=== PATIENT | male | born 1970 | race African-American/Black ===

== ENCOUNTER 2020-06-16 07:11 | Inpatient (IN) | payer MEDICARE, MEDICAID, SELFPAY ==
[2020-06-16] VITALS (10 sets, daily range): BP systolic 139–154; BP diastolic 73–76; PULSE 92–96; RESP 16–20; TEMP 36.7–36.8; O2SAT 96–98; BMI 38.6
--- NOTE | ~2020-06-16 | US_ITS ---
EXAMINATION: US ABDOMEN LIMITED CLINICAL INFORMATION: Elevated LFTs.. COMPARISON: None TECHNIQUE: Real-time imaging of the right upper quadrant abdominal viscera. FINDINGS: PANCREAS: The pancreas is completely obstructed by overlying gas. LIVER: The liver is normal in size. The liver contour is normal. Parenchymal echogenicity is diffusely increased. There are areas of focal fatty sparing. No focal hepatic lesion. There is no intrahepatic biliary duct dilatation seen. GALLBLADDER: Normal. The gallbladder is physiologically distended without evidence of stones, sludge, polyps, wall thickening or pericholecystic fluid. COMMON BILE DUCT: Normal in caliber measuring 0.2 cm in diameter. RIGHT KIDNEY: Normal. No hydronephrosis. No renal calculi or focal parenchymal lesions. The kidney measures 10.8 cm in maximum dimension. FREE FLUID: None. US/US abdomen limited IMPRESSION: Diffuse hepatic steatosis with areas of focal fatty sparing. Rest of the limited abdominal ultrasound is unremarkable.
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
[2020-06-16 08:42] LABS: MANUAL DIFF FLAG NO
--- NOTE | 2020-06-16 08:47 | ED.PSYCH ---
HPI - Psych General Chief Complaint: Psychiatric Symptoms Stated Complaint: SI Time Seen by Provider: 06/16/20 08:34 Source: patient and EMS History of Present Illness HPI Narrative: 49-year-old past medical history of bipolar, hallucinations, BIBA complaining of suicidal and homicidal ideations with auditory and visual hallucinations. Reports he cannot tell what is real and what is not. Admits he is overdue for his Haldol injection. States he is having difficulty controlling his hallucinations. Denies EtOH/illicit drug use History limited due to patient's lethargic mental status MD complaint: suicidal ideation Related Data Home Medications Medication Instructions Recorded Confirmed amitriptyline 10 mg PO BID@0800,1600 06/16/20 06/16/20 amlodipine 10 mg PO DAILY 06/16/20 06/16/20 benztropine 1 mg PO BID 06/16/20 06/16/20 bupropion HCl 300 mg PO DAILY 06/16/20 06/16/20 buspirone 15 mg PO TID 06/16/20 06/16/20 clonidine HCl 0.2 mg PO BEDTIME 06/16/20 06/16/20 haloperidol decanoate 100 mg IM Q2W 06/16/20 06/16/20 hydrochlorothiazide 25 mg PO DAILY 06/16/20 06/16/20 hydroxyzine HCl 25 mg PO BID PRN 06/16/20 06/16/20 lisinopril 5 mg PO DAILY 06/16/20 06/16/20 omeprazole 20 mg PO DAILY@0630 06/16/20 06/16/20 propranolol 120 mg PO DAILY 06/16/20 06/16/20 Allergies Allergy/AdvReac Type Severity Reaction Status Date / Time No Known Allergies Allergy Verified 06/16/20 08:00 Review of Systems Review of Systems: Constitutional: No Fever, No Chills Cardiovascular: No Chest Pain, No SOB Respiratory: No Cough, No Dyspnea Gastrointestinal: No Nausea, No Vomiting, No Abdominal pain Musculoskeletal: No joint pain, No Myalgias Skin: No Skin Lesions, No rash Psych: No Anxiety/Panic, +Depression, +SI/HI/AH/VH Yes all other systems are reviewed and are negative PMFSH Past Medical History Attestation statement: The following information was validated with the patient. Medical History (Updated 06/16/20 @ 12:20 by KIM Lowery) Bipolar disorder Coma Hallucinations Social History Social History Use of substances other than those prescribed or required for medical reasons: Yes Advance Directives: Yes Advance Directives Information Provided: No Advance Directives on File: No Physical Exam Vital Signs: Vital Signs: Last Vital Signs Temp 98.0 F 06/16/20 07:42 Pulse 92 06/16/20 07:42 Resp 20 06/16/20 16:00 BP 154/73 H 06/16/20 07:42 Pulse Ox 98 06/16/20 07:42 Body Mass Index 38.6 Const: General: cooperative, healthy appearing, alert and lethargic Orientation/consciousness: lethargic Limitations: no limitations HENMT: Head: Yes normal to inspection Ears: hearing grossly normal bilaterally General nose exam: Normal external nose present Face and sinus: Yes normal facial exam Eyes: General: appearance normal, both eyes and all related structures EOM: EOMs intact bilaterally Neck: Neck: Yes normal visual inspection Resp: Effort & Inspection: normal respiratory effort and not labored Cardio: Rate: regular rate Heart sounds: S1 normal heart sound present and S2 normal heart sound present GI: Inspection: Yes normal to inspection Palpation (GI): Soft to palpation Skin: Rashes: no rashes Wounds: no wounds Extrem: General: Yes normal to inspection Psych: Attitude: cooperative Thought content: Suicidality present, Homicidality present, Hallucination(s) present and Depressive thoughts present Insight: Good insight present (Psych) Course Course Course Narrative: -creatinine mildly elevated at 1.53 > no baseline priors will push p.o. fluids -AST/ALT elevated will obtain limited RUQ abd ultrasound for further eval, tox screen positive for cocaine and THC -1218--US abdomen limited IMPRESSION: Diffuse hepatic steatosis with areas of focal fatty sparing. Rest of the limited abdominal ultrasound is unremarkable. > patient is medically cleared for [facility] evaluation. Physician observation initiated at 1218 --1700--ED care transferred to MACHINE ROOM OPERATOR Malik pending [facility] evaluation MDM - Psych MDM Narrative Medical decision making narrative: 49-year-old past medical history of bipolar, hallucinations, BIBA complaining of suicidal and homicidal ideations with auditory and visual hallucinations. On exam VSS, in NAD, lethargic however easily arousable, having active hallucinations on exam. Concern for bipolar exacerbation vs medication noncompliance vs organic causes Plan: Labs, [facility]N Medical Records Attestation: I reviewed the patient's medical records. Lab Data Attestation: I reviewed the patient's lab results. Result diagrams: 06/16/20 08:33 06/16/20 08:33 Labs: Lab Results 06/16/20 06/16/20 06/16/20 Range/Units 08:32 08:33 08:33 WBC 6.0 (4.8-10.8) X10*3/uL RBC 4.13 L (4.60-5.80) X10*6/uL Hgb 13.6 L (14.0-18.0) g/dl Hct 39.3 L (42-52) % MCV 95.2 (80-98) fL MCH 32.9 (27.0-33.0) pg MCHC 34.6 (31.0-36.0) g/dl RDW 12.7 (11.0-16.0) % Plt Count 190 (160-400) X10*3/uL MPV 10.0 (9.4-12.4) fL Immature Gran % (Auto) 0.3 (0.0-0.4) % Neut % (Auto) 75.5 H (45-73) % Lymph % (Auto) 15.4 L (20-40) % [place] % (Auto) 8.2 (2-11) % Eos % (Auto) 0.3 (0-4) % Baso % (Auto) 0.3 (0-2) % Lymph # (Auto) 0.9 L (1.2-4.9) X10*3/uL [place] # (Auto) 0.5 (0.1-1.2) X10*3/uL Eos # (Auto) 0.0 (0.0-0.4) X10*3/uL Baso # (Auto) 0.0 (0.0-0.2) X10*3/uL Abs Immat Gran (auto) 0.02 (0.00-0.03) X10*3/uL Absolute Neuts (auto) 4.5 (2.0-8.3) X10*3/uL Absolute Nucleated RBC 0.000 (0.0-0.012) X10*3/uL Nucleated RBC % (auto) 0.0 (0.0-0.2) /100WBC Sodium 134 L (135-145) mmol/L Potassium 4.0 (3.3-5.1) mmol/L Chloride 97 (96-108) mmol/L Carbon Dioxide 27 (22-29) mmol/L Anion Gap 14 (12-20) BUN 31 H (9-16) mg/dL Creatinine 1.53 H (0.5-1.4) mg/dL Estim Creat Clear Calc 82.0 Estimated GFR 49 Random Glucose 168 H (60-115) mg/dL Calcium 10.0 (8.4-10.2) mg/dL Total Bilirubin 0.8 (0.0-1.0) mg/dL AST 136 H (5-37) U/L ALT 52 H (0-40) U/L Alkaline Phosphatase 87 (39-117) U/L Total Protein 7.5 (6.5-8.0) g/dL Albumin 4.4 (3.5-5.0) g/dL Salicylates < 5.0 L (15-30) mg/dL Urine Opiates Screen Not Detected (Not Detect) Acetaminophen < 1 (<30) mcg/mL Ur Barbiturates Screen Not Detected (Not Detect) Ur Phencyclidine Scrn Not Detected (Not Detect) Ur Amphetamines Screen Not Detected (Not Detect) U Benzodiazepines Scrn Not Detected (Not Detect) Urine Cocaine Screen POSITIVE H (Not Detect) U Marijuana (THC) Screen POSITIVE H (Not Detect) Ethyl Alcohol mg/dL COVID-19 (FABIAN) (Negative) COVID-19 Clin Com 06/16/20 06/16/20 Range/Units 08:33 08:33 WBC (4.8-10.8) X10*3/uL RBC (4.60-5.80) X10*6/uL Hgb (14.0-18.0) g/dl Hct (42-52) % MCV (80-98) fL MCH (27.0-33.0) pg MCHC (31.0-36.0) g/dl RDW (11.0-16.0) % Plt Count (160-400) X10*3/uL MPV (9.4-12.4) fL Immature Gran % (Auto) (0.0-0.4) % Neut % (Auto) (45-73) % Lymph % (Auto) (20-40) % [place] % (Auto) (2-11) % Eos % (Auto) (0-4) % Baso % (Auto) (0-2) % Lymph # (Auto) (1.2-4.9) X10*3/uL [place] # (Auto) (0.1-1.2) X10*3/uL Eos # (Auto) (0.0-0.4) X10*3/uL Baso # (Auto) (0.0-0.2) X10*3/uL Abs Immat Gran (auto) (0.00-0.03) X10*3/uL Absolute Neuts (auto) (2.0-8.3) X10*3/uL Absolute Nucleated RBC (0.0-0.012) X10*3/uL Nucleated RBC % (auto) (0.0-0.2) /100WBC Sodium (135-145) mmol/L Potassium (3.3-5.1) mmol/L Chloride (96-108) mmol/L Carbon Dioxide (22-29) mmol/L Anion Gap (12-20) BUN (9-16) mg/dL Creatinine (0.5-1.4) mg/dL Estim Creat Clear Calc Estimated GFR Random Glucose (60-115) mg/dL Calcium (8.4-10.2) mg/dL Total Bilirubin (0.0-1.0) mg/dL AST (5-37) U/L ALT (0-40) U/L Alkaline Phosphatase (39-117) U/L Total Protein (6.5-8.0) g/dL Albumin (3.5-5.0) g/dL Salicylates (15-30) mg/dL Urine Opiates Screen (Not Detect) Acetaminophen (<30) mcg/mL Ur Barbiturates Screen (Not Detect) Ur Phencyclidine Scrn (Not Detect) Ur Amphetamines Screen (Not Detect) U Benzodiazepines Scrn (Not Detect) Urine Cocaine Screen (Not Detect) U Marijuana (THC) Screen (Not Detect) Ethyl Alcohol < 10 mg/dL COVID-19 (FABIAN) Negative (Negative) COVID-19 Clin Com See Note Discharge Plan Discharge Clinical Impression: Hallucinations, Depression with suicidal ideation Prescriptions: No Action clonidine HCl 0.2 mg Tablet 0.2 mg PO BEDTIME RF: 0 omeprazole 20 mg Capsule,Delayed Release(Dr/Ec) 20 mg PO DAILY@0630 RF: 0 buspirone 15 mg Tablet 15 mg PO TID RF: 0 lisinopril 5 mg Tablet 5 mg PO DAILY RF: 0 bupropion HCl 300 mg Tablet Extended Release 24 Hr 300 mg PO DAILY RF: 0 amlodipine 10 mg Tablet 10 mg PO DAILY RF: 0 benztropine 1 mg Tablet 1 mg PO BID RF: 0 hydrochlorothiazide 25 mg Tablet 25 mg PO DAILY RF: 0 propranolol 120 mg Capsule,Extended Release 24hr 120 mg PO DAILY RF: 0 haloperidol decanoate 100 mg/mL Solution 100 mg IM Q2W RF: 0 amitriptyline 10 mg Tablet 10 mg PO BID@0800,1600 RF: 0 hydroxyzine HCl 25 mg Tablet 25 mg PO BID PRN (Reason: Anxiety) RF: 0
[2020-06-16 08:55] LABS: Basophils Percent Auto 0.3 % (0-2); Eosinophils Percent Auto 0.3 % (0-4); Hematocrit 39.3 % (42-52); Hemoglobin 13.6 g/dl (14.0-18.0); Imm Gran Abs Auto 0.02 X10*3/uL (0.00-0.03); Imm Gran Pct Auto 0.3 % (0.0-0.4); Lymphocytes Absolute Auto 0.9 X10*3/uL (1.2-4.9); Lymphocytes Percent Auto 15.4 % (20-40); Mean Corpuscular HGB Conc 34.6 g/dl (31.0-36.0); Mean Corpuscular Hemoglobin 32.9 pg (27.0-33.0); Mean Corpuscular Volume 95.2 fL (80-98); Monocytes Absolute Auto 0.5 X10*3/uL (0.1-1.2); Monocytes Percent Auto 8.2 % (2-11); Neutrophils Absolute Auto 4.5 X10*3/uL (2.0-8.3); Neutrophils Percent Auto 75.5 % (45-73); Platelet Count 190 X10*3/uL (160-400); Red Blood Count 4.13 X10*6/uL (4.60-5.80); Red Cell Distribution Width 12.7 % (11.0-16.0)
[2020-06-16 09:02] LABS: COVID-19 Test Negative (Negative); IDNOW Serial# 9DD0AD1C
[2020-06-16 09:15] LABS: Ethanol < 10 mg/dL
[2020-06-16 09:20] LABS: Acetaminophen LAB < 1 mcg/mL (<30); Alanine Aminotransferase 52 U/L (0-40); Albumin Level 4.4 g/dL (3.5-5.0); Alkaline Phosphatase 87 U/L (39-117); Anion Gap 14 (12-20); Aspartate Amino Transferase 136 U/L (5-37); Bilirubin Total 0.8 mg/dL (0.0-1.0); Blood Urea Nitrogen 31 mg/dL (9-16); Carbon Dioxide 27 mmol/L (22-29); Chloride 97 mmol/L (96-108); Estimated Glomerular Filt Rate 49; Glucose Random 168 mg/dL (60-115); Salicylate < 5.0 mg/dL (15-30); Sodium 134 mmol/L (135-145); Total Protein 7.5 g/dL (6.5-8.0)
[2020-06-16 09:20] LABS: Amphetamine Screen Urine Not Detected (Not Detect); Barbiturates, Urine Not Detected (Not Detect); Benzodiazepines Screen Urine Not Detected (Not Detect); Cannabinoid Screen Urine POSITIVE (Not Detect); Cocaine Screen Urine POSITIVE (Not Detect); Opiate Screen Urine Not Detected (Not Detect); Phencyclidine Screen Urine Not Detected (Not Detect)
--- NOTE | 2020-06-16 10:29 | PC.NURSE ---
Pt resting- attempted to notify pt of ultrasound- pt awoke only slightly. Pharmacy consulted re: med rec.
--- NOTE | 2020-06-16 10:41 | PC.NURSE ---
Pt to ultrasound
--- NOTE | 2020-06-16 11:45 | PC.NURSE ---
Dr Barahona T in to evaluate from Psychiatry.
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
--- NOTE | 2020-06-16 12:41 | PC.NURSE ---
Information sent to [facility] via PC per current process. Pt encouraged to drink fluids, continues to be drowsy but arousable.
--- NOTE | 2020-06-16 13:12 | PC.NURSE ---
Pt resting, resp unlabored
--- NOTE | 2020-06-16 14:32 | PC.NURSE ---
Pt awake, eating lunch. IM medication given as ordered- pt willing, and requesting medication for control oh AH. Pt aware that he has PO as needed as well.
--- NOTE | 2020-06-16 18:18 | PC.NURSE ---
Pt awake briefly, OOB to bathroom. Currently resting, resp unlabored.
[2020-06-16] MEDS: busPIRone HCl 5 MG TABLET 15 MG PO (20:02)
[2020-06-16] MEDS: amLODIPine Besylate 10 MG TABLET PO (20:02)
[2020-06-16] MEDS: HaloperidoL 5 MG TABLET PO (20:02)
[2020-06-16] MEDS: Benztropine Mesylate 1 MG TABLET PO (20:03)
[2020-06-16] MEDS: cloNIDine HCL 0.2 MG TABLET PO (20:03)
--- NOTE | 2020-06-16 21:07 | PC.NURSE ---
Patient calm and quiet at this time, compliant with his HS PO medication, denied distress, will continue to monitor,
[2020-06-17 01:48] VITALS: BP 110/62; PULSE 88; RESP 18; TEMP 37.1; O2SAT 98
[2020-06-17] MEDS: Omeprazole 20 MG CAPSULE.DR PO (05:38)
[2020-06-17] MEDS: HaloperidoL 5 MG TABLET PO ×3 (05:38→18:14)
[2020-06-17 09:53] VITALS: BP 116/83; PULSE 96; RESP 18; TEMP 36.3; O2SAT 99
[2020-06-17] MEDS: Amitriptyline HCl 10 MG TABLET PO ×2 (09:59→15:52)
[2020-06-17] MEDS: hydroCHLOROthiazide 25 MG TABLET PO (09:59)
[2020-06-17] MEDS: busPIRone HCl 5 MG TABLET 15 MG PO ×3 (09:59→20:01)
[2020-06-17] MEDS: buPROPion HCl XL 300 MG TAB.ER.24H PO (10:00)
[2020-06-17] MEDS: amLODIPine Besylate 10 MG TABLET PO (10:00)
[2020-06-17] MEDS: Benztropine Mesylate 1 MG TABLET PO ×2 (10:00→20:01)
[2020-06-17] MEDS: lisinopriL 5 MG TABLET PO (10:00)
[2020-06-17] MEDS: Propranolol HCL LA 60 MG CAP.SA.24H 120 MG PO (10:16)
--- NOTE | 2020-06-17 10:21 | PC.NURSE ---
PATIENT AWAKE, CALM AND COOPERATIVE WITH STAFF. MORNING MEDS PROVIDED. PATIENT WAITING RE EVAL FROM [facility] TODAY.
--- NOTE | 2020-06-17 11:10 | PC.NURSE ---
bhn at bedside speaking with patient.
--- NOTE | 2020-06-17 11:46 | PC.NURSE ---
patient dispo plan for inpatient psych bed search.
[2020-06-17] MEDS: Cyclobenzaprine HCl 5 MG TABLET PO (13:23)
[2020-06-17] MEDS: Lidocaine 4 % Patch ADH..PATCH 1 PATCH TRANSDERMA (13:23)
[2020-06-17] MEDS: buPROPion HCl XL 150 MG TAB.ER.24H PO (15:52)
--- NOTE | 2020-06-17 15:57 | PC.NURSE ---
lidocaine patch fell off and pt threw in trash. new patch removed from Pyxis and applied to patient.
[2020-06-17 17:39] VITALS: BP 119/64; PULSE 82; RESP 16; TEMP 36.6; O2SAT 98
[2020-06-17 20:01] VITALS: BP 133/99; PULSE 80
[2020-06-17] MEDS: cloNIDine HCL 0.2 MG TABLET PO (20:01)
[2020-06-18] MEDS: HaloperidoL 5 MG TABLET PO (01:46)
[2020-06-18] MEDS: hydrOXYzine HCL 25 MG TABLET PO ×2 (01:46→21:59)
--- NOTE | 2020-06-18 01:48 | PC.NURSE ---
Patient just woke up, reported anxiety and racing thought, prn Haldol 5 mg and hydroxyzine 25 mg administered, pending effect, will continue to monitor.
[2020-06-18] MEDS: Omeprazole 20 MG CAPSULE.DR PO (05:58)
--- NOTE | 2020-06-18 07:03 | PC.NURSE ---
report taken from german ayon pt up at nurses station, making inquiries about medications, appears calm and cooperative. pt educated about family medicine resident 1 hr before and after scheduled time. pt agreeable to medications at 0800. breakfast tray at bedside. wctm for dc needs.
[2020-06-18] MEDS: Propranolol HCL LA 60 MG CAP.SA.24H 120 MG PO (08:00)
[2020-06-18] MEDS: amLODIPine Besylate 10 MG TABLET PO (08:01)
[2020-06-18] MEDS: buPROPion HCl XL 300 MG TAB.ER.24H PO (08:01)
[2020-06-18] MEDS: Amitriptyline HCl 10 MG TABLET PO ×2 (08:01→15:20)
[2020-06-18] MEDS: Benztropine Mesylate 1 MG TABLET PO ×2 (08:01→22:00)
[2020-06-18] MEDS: lisinopriL 5 MG TABLET PO (08:01)
[2020-06-18] MEDS: busPIRone HCl 5 MG TABLET 15 MG PO ×3 (08:01→18:55)
[2020-06-18] MEDS: hydroCHLOROthiazide 25 MG TABLET PO (08:02)
[2020-06-18 09:46] VITALS: BP 105/57; PULSE 72; RESP 16; TEMP 36.8; O2SAT 100
[2020-06-18] MEDS: buPROPion HCl XL 150 MG TAB.ER.24H PO (13:37)
--- NOTE | 2020-06-18 14:10 | ECG_ITS ---
Test Reason : MEDCLEALANCE Blood Pressure : / mmHG Vent. Rate : 063 BPM Atrial Rate : 063 BPM P-R Int : 150 ms QRS Dur : 082 ms QT Int : 396 ms P-R-T Axes : 053 -17 007 degrees QTc Int : 405 ms Normal sinus rhythm Normal ECG No previous ECGs available Referred By: Ayla Jackson Electronically Signed By:SHIRA VILLEGAS
[2020-06-18 16:14] VITALS: BP 118/68; PULSE 67; RESP 18; TEMP 36.2; O2SAT 99
[2020-06-18 22:00] VITALS: BP 127/73; PULSE 83
[2020-06-18] MEDS: cloNIDine HCL 0.2 MG TABLET PO (22:00)
[2020-06-18] MEDS: traZODone HCL 50 MG TABLET PO (22:00)
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
[2020-06-19] MEDS: HaloperidoL 5 MG TABLET PO ×3 (00:02→19:36)
[2020-06-19] MEDS: traZODone HCL 50 MG TABLET PO (00:02)
[2020-06-19] MEDS: hydrOXYzine HCL 25 MG TABLET PO (00:02)
[2020-06-19 06:40] VITALS: BP 121/65; PULSE 76; RESP 16; TEMP 36.1; O2SAT 97
[2020-06-19 08:30] LABS: Estimated Average Glucose 134 mg/dL; Hemoglobin A1C 151.7242 umol/L; Hemoglobin A1c % 6.3 %
[2020-06-19 08:36] LABS: Alanine Aminotransferase 45 U/L (0-40); Albumin Level 3.7 g/dL (3.5-5.0); Alkaline Phosphatase 90 U/L (39-117); Aspartate Amino Transferase 51 U/L (5-37); Bilirubin Direct < 0.2 mg/dL (0.0-0.5); Bilirubin Total 0.3 mg/dL (0.0-1.0); Cholesterol 133 mg/dL; HDL Cholesterol 36 mg/dL; LDL Cholesterol Calculated 81 mg/dl; Total Protein 6.5 g/dL (6.5-8.0); Triglycerides 81 mg/dL
[2020-06-19 08:38] VITALS: BP 116/78; PULSE 75
[2020-06-19] MEDS: Propranolol HCL LA 60 MG CAP.SA.24H 120 MG PO (08:38)
[2020-06-19] MEDS: buPROPion HCl XL 300 MG TAB.ER.24H PO (08:38)
[2020-06-19 08:40] VITALS: BP 116/78; PULSE 75
[2020-06-19] MEDS: lisinopriL 5 MG TABLET PO (08:40)
[2020-06-19] MEDS: amLODIPine Besylate 10 MG TABLET PO (08:40)
[2020-06-19] MEDS: hydroCHLOROthiazide 25 MG TABLET PO (08:41)
[2020-06-19] MEDS: busPIRone HCl 5 MG TABLET 15 MG PO ×3 (08:41→16:36)
[2020-06-19] MEDS: Benztropine Mesylate 1 MG TABLET PO ×2 (08:41→20:48)
[2020-06-19] MEDS: Omeprazole 20 MG CAPSULE.DR PO (08:41)
[2020-06-19] MEDS: Amitriptyline HCl 10 MG TABLET PO ×2 (08:43→16:36)
[2020-06-19 08:57] LABS: Free T4 (Free Thyroxine) 0.94 ng/dL (0.71-1.85); Thyroid Stimulating Hormone 0.44 uIU/mL (0.32-4.0)
--- NOTE | 2020-06-19 09:33 | P.DS_ITS ---
DS: Providers Provider Date of Service: 06/19/20 Date of admission: 06/18/20 16:26 Primary care physician: Unknown Physician DS: Diagnosis Discharge Diagnosis (1) Psychosis: Status: Acute DS: Medications Discharge Medications Home Medications: Home Medications Medication Instructions Recorded Confirmed amitriptyline 10 mg PO BID@0800,1600 06/16/20 06/16/20 amlodipine 10 mg PO DAILY 06/16/20 06/16/20 benztropine 1 mg PO BID 06/16/20 06/16/20 bupropion HCl 300 mg PO DAILY 06/16/20 06/16/20 buspirone 15 mg PO TID 06/16/20 06/16/20 clonidine HCl 0.2 mg PO BEDTIME 06/16/20 06/16/20 haloperidol decanoate 100 mg IM Q2W 06/16/20 06/16/20 hydrochlorothiazide 25 mg PO DAILY 06/16/20 06/16/20 hydroxyzine HCl 25 mg PO BID PRN 06/16/20 06/16/20 lisinopril 5 mg PO DAILY 06/16/20 06/16/20 omeprazole 20 mg PO DAILY@0630 06/16/20 06/16/20 propranolol 120 mg PO DAILY 06/16/20 06/16/20 bupropion HCl 1 tab PO DAILY 06/17/20 06/17/20 Discharge Plan Discharge Referrals: Physician,Unknown [Primary Care Provider] - 1 Week Discharge Medications: No Action clonidine HCl 0.2 mg Tablet 0.2 mg PO BEDTIME RF: 0 omeprazole 20 mg Capsule,Delayed Release(Dr/Ec) 20 mg PO DAILY@0630 RF: 0 buspirone 15 mg Tablet 15 mg PO TID RF: 0 lisinopril 5 mg Tablet 5 mg PO DAILY RF: 0 bupropion HCl 300 mg Tablet Extended Release 24 Hr 300 mg PO DAILY RF: 0 amlodipine 10 mg Tablet 10 mg PO DAILY RF: 0 benztropine 1 mg Tablet 1 mg PO BID RF: 0 hydrochlorothiazide 25 mg Tablet 25 mg PO DAILY RF: 0 propranolol 120 mg Capsule,Extended Release 24hr 120 mg PO DAILY RF: 0 haloperidol decanoate 100 mg/mL Solution 100 mg IM Q2W RF: 0 amitriptyline 10 mg Tablet 10 mg PO BID@0800,1600 RF: 0 hydroxyzine HCl 25 mg Tablet 25 mg PO BID PRN (Reason: Anxiety) RF: 0 bupropion HCl 150 mg tablet sustained-release 12 hr 1 tab PO DAILY RF: 0 Data Data Completed and Pending Completed studies during hospitalization [Text1]: 06/16/20 06/16/20 06/16/20 08:32 08:33 08:33 WBC 6.0 RBC 4.13 L Hgb 13.6 L Hct 39.3 L MCV 95.2 MCH 32.9 MCHC 34.6 RDW 12.7 Plt Count 190 MPV 10.0 Immature Gran % (Auto) 0.3 Neut % (Auto) 75.5 H Lymph % (Auto) 15.4 L [place] % (Auto) 8.2 Eos % (Auto) 0.3 Baso % (Auto) 0.3 Lymph # (Auto) 0.9 L [place] # (Auto) 0.5 Eos # (Auto) 0.0 Baso # (Auto) 0.0 Abs Immat Gran (auto) 0.02 Absolute Neuts (auto) 4.5 Absolute Nucleated RBC 0.000 Nucleated RBC % (auto) 0.0 Sodium 134 L Potassium 4.0 Chloride 97 Carbon Dioxide 27 Anion Gap 14 BUN 31 H Creatinine 1.53 H Estim Creat Clear Calc 82.0 Estimated GFR 49 Random Glucose 168 H Estimat Average Glucose Hemoglobin A1c % Calcium 10.0 Total Bilirubin 0.8 Direct Bilirubin AST 136 H ALT 52 H Alkaline Phosphatase 87 Total Protein 7.5 Albumin 4.4 Triglycerides Cholesterol LDL Cholesterol, Calc HDL Cholesterol TSH Free T4 Salicylates < 5.0 L Urine Opiates Screen Not Detected Acetaminophen < 1 Ur Barbiturates Screen Not Detected Ur Phencyclidine Scrn Not Detected Ur Amphetamines Screen Not Detected U Benzodiazepines Scrn Not Detected Urine Cocaine Screen POSITIVE H U Marijuana (THC) Screen POSITIVE H Ethyl Alcohol COVID-19 ([facility]) COVID-19 Clin Com 06/16/20 06/16/20 06/19/20 08:33 08:33 08:00 WBC RBC Hgb Hct MCV MCH MCHC RDW Plt Count MPV Immature Gran % (Auto) Neut % (Auto) Lymph % (Auto) [place] % (Auto) Eos % (Auto) Baso % (Auto) Lymph # (Auto) [place] # (Auto) Eos # (Auto) Baso # (Auto) Abs Immat Gran (auto) Absolute Neuts (auto) Absolute Nucleated RBC Nucleated RBC % (auto) Sodium Potassium Chloride Carbon Dioxide Anion Gap BUN Creatinine Estim Creat Clear Calc Estimated GFR Random Glucose Estimat Average Glucose Hemoglobin A1c % Calcium Total Bilirubin 0.3 Direct Bilirubin < 0.2 AST 51 H ALT 45 H Alkaline Phosphatase 90 Total Protein 6.5 Albumin 3.7 Triglycerides 81 Cholesterol 133 LDL Cholesterol, Calc 81 HDL Cholesterol 36 TSH 0.44 Free T4 0.94 Salicylates Urine Opiates Screen Acetaminophen Ur Barbiturates Screen Ur Phencyclidine Scrn Ur Amphetamines Screen U Benzodiazepines Scrn Urine Cocaine Screen U Marijuana (THC) Screen Ethyl Alcohol < 10 COVID-19 ([facility]) Negative COVID-19 Clin Com See Note 06/19/20 08:00 WBC RBC Hgb Hct MCV MCH MCHC RDW Plt Count MPV Immature Gran % (Auto) Neut % (Auto) Lymph % (Auto) [place] % (Auto) Eos % (Auto) Baso % (Auto) Lymph # (Auto) [place] # (Auto) Eos # (Auto) Baso # (Auto) Abs Immat Gran (auto) Absolute Neuts (auto) Absolute Nucleated RBC Nucleated RBC % (auto) Sodium Potassium Chloride Carbon Dioxide Anion Gap BUN Creatinine Estim Creat Clear Calc Estimated GFR Random Glucose Estimat Average Glucose 134 Hemoglobin A1c % 6.3 Calcium Total Bilirubin Direct Bilirubin AST ALT Alkaline Phosphatase Total Protein Albumin Triglycerides Cholesterol LDL Cholesterol, Calc HDL Cholesterol TSH Free T4 Salicylates Urine Opiates Screen Acetaminophen Ur Barbiturates Screen Ur Phencyclidine Scrn Ur Amphetamines Screen U Benzodiazepines Scrn Urine Cocaine Screen U Marijuana (THC) Screen Ethyl Alcohol COVID-19 ([facility]) COVID-19 Clin Com Imaging Diagnostic Imaging Impressions Abdomen Ultrasound 06/16/20 10:20 IMPRESSION: Diffuse hepatic steatosis with areas of focal fatty sparing. Rest of the limited abdominal ultrasound is unremarkable. DS: Summary Time Spent with Patient Time attestation: Total time spent providing and/or coordinating discharge services:
[2020-06-19 10:41] LABS: Anion Gap 12 (12-20); Blood Urea Nitrogen 22 mg/dL (9-16); Carbon Dioxide 29 mmol/L (22-29); Chloride 104 mmol/L (96-108); Creatinine Clr Calc Pharmacy 102.9; Estimated Glomerular Filt Rate > 60; Potassium 4.7 mmol/L (3.3-5.1); Sodium 140 mmol/L (135-145)
[2020-06-19] MEDS: buPROPion HCl XL 150 MG TAB.ER.24H PO ×2 (12:13→13:22)
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
[2020-06-19] MEDS: LORazepam 1 MG TABLET 2 MG PO ×2 (15:20→19:36)
[2020-06-19] MEDS: diphenhydrAMINE HCL 25 MG TABLET 50 MG PO ×2 (15:37→19:36)
[2020-06-19 20:46] VITALS: TEMP 36.2
[2020-06-19 20:48] VITALS: BP 144/63; PULSE 92
[2020-06-19] MEDS: cloNIDine HCL 0.2 MG TABLET PO (20:48)
[2020-06-19] MEDS: Melatonin 3 MG TABLET PO (20:48)
[2020-06-20 06:00] VITALS: RESP 16; TEMP 36.3; O2SAT 97
[2020-06-20] MEDS: buPROPion HCl XL 300 MG TAB.ER.24H PO ×2 (08:14→12:39)
[2020-06-20] MEDS: Omeprazole 20 MG CAPSULE.DR PO (08:14)
[2020-06-20] MEDS: hydroCHLOROthiazide 25 MG TABLET PO (08:14)
[2020-06-20] MEDS: Benztropine Mesylate 1 MG TABLET PO ×2 (08:14→19:12)
[2020-06-20] MEDS: busPIRone HCl 5 MG TABLET 15 MG PO ×3 (08:14→19:11)
[2020-06-20 08:15] VITALS: BP 125/79; PULSE 85
[2020-06-20] MEDS: Propranolol HCL LA 60 MG CAP.SA.24H 120 MG PO (08:15)
[2020-06-20] MEDS: Amitriptyline HCl 10 MG TABLET PO ×2 (08:15→16:49)
[2020-06-20] MEDS: lisinopriL 5 MG TABLET PO (08:15)
[2020-06-20] MEDS: amLODIPine Besylate 10 MG TABLET PO (08:15)
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
[2020-06-20] MEDS: Magnesium Hydrox/Alum Hydrox 30 ML ORAL.SUSP PO (09:13)
[2020-06-20] MEDS: LORazepam 1 MG TABLET 2 MG PO ×2 (10:41→16:49)
[2020-06-20] MEDS: HaloperidoL 5 MG TABLET PO ×3 (11:31→19:09)
[2020-06-20] MEDS: diphenhydrAMINE HCL 25 MG TABLET 50 MG PO ×2 (16:49→19:12)
[2020-06-20 16:51] VITALS: BP 118/81; PULSE 85; TEMP 36.3
[2020-06-20] MEDS: Melatonin 3 MG TABLET PO (19:09)
[2020-06-20 19:11] VITALS: BP 121/80; PULSE 99
[2020-06-20] MEDS: cloNIDine HCL 0.2 MG TABLET PO (19:11)
[2020-06-21 06:00] VITALS: BP 141/84; PULSE 88; TEMP 35.9; O2SAT 99
[2020-06-21] MEDS: buPROPion HCl XL 300 MG TAB.ER.24H PO (08:14)
[2020-06-21] MEDS: hydroCHLOROthiazide 25 MG TABLET PO (08:14)
[2020-06-21] MEDS: Amitriptyline HCl 10 MG TABLET PO ×2 (08:14→19:11)
[2020-06-21 08:15] VITALS: BP 141/84; PULSE 88
[2020-06-21] MEDS: lisinopriL 5 MG TABLET PO (08:15)
[2020-06-21] MEDS: busPIRone HCl 5 MG TABLET 15 MG PO ×3 (08:15→19:10)
[2020-06-21] MEDS: Omeprazole 20 MG CAPSULE.DR PO (08:15)
[2020-06-21] MEDS: HaloperidoL 5 MG TABLET PO ×4 (08:15→19:12)
[2020-06-21] MEDS: Benztropine Mesylate 1 MG TABLET PO ×2 (08:15→19:12)
[2020-06-21 08:16] VITALS: BP 141/84; PULSE 88
[2020-06-21] MEDS: Propranolol HCL LA 60 MG CAP.SA.24H 120 MG PO (08:16)
[2020-06-21 08:19] VITALS: BP 141/84; PULSE 88
[2020-06-21] MEDS: amLODIPine Besylate 10 MG TABLET PO (08:19)
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
[2020-06-21] MEDS: Magnesium Hydrox/Alum Hydrox 30 ML ORAL.SUSP PO (09:17)
[2020-06-21] MEDS: LORazepam 1 MG TABLET 2 MG PO ×2 (11:14→15:54)
[2020-06-21] MEDS: diphenhydrAMINE HCL 25 MG TABLET 50 MG PO ×3 (11:14→19:11)
[2020-06-21] MEDS: buPROPion HCl XL 150 MG TAB.ER.24H 300 MG PO (11:48)
[2020-06-21] MEDS: LORazepam 1 MG TABLET PO (13:40)
[2020-06-21 19:10] VITALS: BP 135/91; PULSE 95
[2020-06-21] MEDS: cloNIDine HCL 0.2 MG TABLET PO (19:10)
[2020-06-21] MEDS: Acetaminophen 325 MG TABLET 650 MG PO (19:12)
[2020-06-21] MEDS: Melatonin 3 MG TABLET PO (19:12)
[2020-06-21 20:25] VITALS: BP 131/81; PULSE 84; TEMP 36.3; O2SAT 96
[2020-06-22] MEDS: LORazepam 1 MG TABLET 2 MG PO ×3 (04:29→19:43)
[2020-06-22] MEDS: HaloperidoL 5 MG TABLET PO ×5 (04:30→19:43)
[2020-06-22] MEDS: diphenhydrAMINE HCL 50 MG/ML VIAL IM (04:30)
--- NOTE | 2020-06-22 04:35 | PC.NURSE ---
Addendum entered by Frandy Farris RN 06/22/20 04:47: Patient stated to nurse that with the Haldol and Ativan, he likes injections. Stated he has had several injections over his lifetime and stated that the Injections work well for him. Original Note: Patient reported that he was feeling agitated. Patient given Haldol 5 mg PO, Ativan 2 mg PO, and Benadryl IM to right deltoid 50 mg
[2020-06-22 06:00] VITALS: BP 150/95; PULSE 85; TEMP 36.3; O2SAT 99
[2020-06-22] MEDS: Bismuth Subsalicylate 262 MG TABLET PO ×2 (06:20→08:30)
[2020-06-22] MEDS: buPROPion HCl XL 300 MG TAB.ER.24H PO (08:27)
[2020-06-22] MEDS: Benztropine Mesylate 1 MG TABLET PO ×2 (08:28→18:54)
[2020-06-22] MEDS: Omeprazole 20 MG CAPSULE.DR PO (08:28)
[2020-06-22] MEDS: hydroCHLOROthiazide 25 MG TABLET PO (08:28)
[2020-06-22 08:29] VITALS: BP 150/95; PULSE 85
[2020-06-22] MEDS: Amitriptyline HCl 10 MG TABLET PO (08:29)
[2020-06-22] MEDS: amLODIPine Besylate 10 MG TABLET PO (08:29)
[2020-06-22] MEDS: lisinopriL 5 MG TABLET PO (08:29)
[2020-06-22] MEDS: Propranolol HCL LA 60 MG CAP.SA.24H 120 MG PO (08:29)
[2020-06-22] MEDS: busPIRone HCl 5 MG TABLET 15 MG PO ×3 (08:30→19:02)
[2020-06-22] MEDS: diphenhydrAMINE HCL 25 MG TABLET 50 MG PO ×3 (10:15→19:43)
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
[2020-06-22] MEDS: buPROPion HCl XL 150 MG TAB.ER.24H 300 MG PO (12:24)
[2020-06-22] MEDS: LORazepam 1 MG TABLET PO ×2 (14:33→18:55)
[2020-06-22 17:10] VITALS: BP 126/80; PULSE 86; RESP 18; TEMP 36.3; O2SAT 100
[2020-06-22 18:54] VITALS: BP 122/63; PULSE 91
[2020-06-22] MEDS: cloNIDine HCL 0.2 MG TABLET PO (18:54)
[2020-06-22] MEDS: Melatonin 3 MG TABLET PO (18:54)
--- NOTE | 2020-06-22 19:04 | PC.NURSE ---
given medications early per pt request
[2020-06-22 19:05] VITALS: BP 122/63; PULSE 91; TEMP 36.4; O2SAT 97
[2020-06-23] MEDS: diphenhydrAMINE HCL 25 MG TABLET 50 MG PO ×2 (00:42→10:15)
[2020-06-23] MEDS: LORazepam 1 MG TABLET 2 MG PO ×2 (00:42→10:15)
[2020-06-23] MEDS: HaloperidoL 5 MG TABLET PO ×3 (00:43→10:15)
[2020-06-23 06:00] VITALS: BP 132/90; PULSE 82; TEMP 36; O2SAT 94
[2020-06-23] MEDS: Bismuth Subsalicylate 262 MG TABLET PO (08:23)
[2020-06-23] MEDS: hydroCHLOROthiazide 25 MG TABLET PO (08:23)
[2020-06-23] MEDS: buPROPion HCl XL 300 MG TAB.ER.24H PO (08:23)
[2020-06-23] MEDS: Omeprazole 20 MG CAPSULE.DR PO (08:23)
[2020-06-23 08:24] VITALS: BP 132/90; PULSE 82
[2020-06-23] MEDS: lisinopriL 5 MG TABLET PO (08:24)
[2020-06-23] MEDS: Propranolol HCL LA 60 MG CAP.SA.24H 120 MG PO (08:24)
[2020-06-23 08:25] VITALS: BP 132/90; PULSE 82
[2020-06-23] MEDS: amLODIPine Besylate 10 MG TABLET PO (08:25)
[2020-06-23] MEDS: Benztropine Mesylate 1 MG TABLET PO (08:25)
[2020-06-23] MEDS: busPIRone HCl 5 MG TABLET 15 MG PO ×2 (08:25→11:50)
[2020-06-23] MEDS: LORazepam 1 MG TABLET PO (08:43)
[2020-06-23] MEDS: buPROPion HCl XL 150 MG TAB.ER.24H 300 MG PO (11:50)
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
== END 2020-06-23 13:35 | DRG 885 ==
LOC: HO.ED 06-18 16:31 → HO.PM5 06-18 16:32
PROVIDERS: Admitting Provider Psychiatry & Neurology Psychiatry; Emergency Provider Physician Assistant; Visit Provider Psychiatry & Neurology Psychiatry
DX: F25.9 Schizoaffective disorder, unspecified (principal); R45.851 Suicidal ideations; F43.12 Post-traumatic stress disorder, chronic; Z20.822 Contact with and (suspected) exposure to COVID-19; F17.210 Nicotine dependence, cigarettes, uncomplicated; R45.850 Homicidal ideations; Z71.6 Tobacco abuse counseling; Z79.899 Other long term (current) drug therapy
CPT/HCPCS: 36415; 76705; 80051; 80053; 80061; 80076; 80143; 80179; 80307; 80320; 82565; 83036; 84439; 84443; 84520; 85025; 87635; 93005; 99285; J1200; Q0163

== ENCOUNTER 2020-07-18 10:37 | Inpatient (IN) | payer MEDICARE, MEDICAID, SELFPAY ==
--- NOTE | 2020-07-18 | ECG_ITS ---
Test Reason : PRE ADMISSION Blood Pressure : / mmHG Vent. Rate : 086 BPM Atrial Rate : 086 BPM P-R Int : 136 ms QRS Dur : 070 ms QT Int : 370 ms P-R-T Axes : 069 012 030 degrees QTc Int : 442 ms Normal sinus rhythm Normal ECG When compared with ECG of 18-JUN-2020 16:03, No significant change was found Referred By: Leonor Rodriguez Electronically Signed By:Joel Jimenez
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
[2020-07-18 10:54] VITALS: BP 134/78; PULSE 90; RESP 20; TEMP 36; O2SAT 96; BMI 29.8
[2020-07-18 11:28] LABS: MANUAL DIFF FLAG NO
[2020-07-18 11:31] LABS: Basophils Percent Auto 0.5 % (0-2); Eosinophils Absolute Auto 0.2 X10*3/uL (0.0-0.4); Eosinophils Percent Auto 4.6 % (0-4); Hematocrit 43.2 % (42-52); Hemoglobin 14.6 g/dl (14.0-18.0); Lymphocytes Percent Auto 27.8 % (20-40); Mean Corpuscular HGB Conc 33.8 g/dl (31.0-36.0); Mean Corpuscular Volume 97.5 fL (80-98); Mean Platelet Volume 9.8 fL (9.4-12.4); Monocytes Absolute Auto 0.4 X10*3/uL (0.1-1.2); Monocytes Percent Auto 9.8 % (2-11); Neutrophils Absolute Auto 2.1 X10*3/uL (2.0-8.3); Neutrophils Percent Auto 57.3 % (45-73); Platelet Count 186 X10*3/uL (160-400); Red Blood Count 4.43 X10*6/uL (4.60-5.80); Red Cell Distribution Width 12.9 % (11.0-16.0); White Blood Count 3.7 X10*3/uL (4.8-10.8)
[2020-07-18 11:48] LABS: COVID-19 Test Negative (Negative); IDNOW Serial# 9DD0AD1C
[2020-07-18 11:57] LABS: Ethanol < 10 mg/dL
[2020-07-18 11:59] LABS: Alanine Aminotransferase 40 U/L (0-40); Alkaline Phosphatase 78 U/L (39-117); Anion Gap 12 (12-20); Aspartate Amino Transferase 79 U/L (5-37); Bilirubin Direct 0.4 mg/dL (0.0-0.5); Bilirubin Total 0.9 mg/dL (0.0-1.0); Blood Urea Nitrogen 14 mg/dL (9-16); Calcium 9.7 mg/dL (8.4-10.2); Carbon Dioxide 29 mmol/L (22-29); Chloride 102 mmol/L (96-108); Estimated Glomerular Filt Rate > 60; Glucose Random 112 mg/dL (60-115); Sodium 139 mmol/L (135-145); Total Protein 7.1 g/dL (6.5-8.0)
--- NOTE | 2020-07-18 15:00 | PC.NURSE ---
Completed and submitted [facility] Crisis Referral, N confirmed they have received the patient's information.
--- NOTE | 2020-07-18 16:11 | PHA.MEDREC ---
Pharmacy Consult ? Medication Reconciliation Pharmacy has completed the medication reconciliation. Patient reports he has not taken any Haldol PO or IM as changed per last discharge om 06/23. Sophia Root, FransiscaD
--- NOTE | 2020-07-18 16:29 | PC.NURSE ---
PT sleeping in room at this time. No sign of distress noted. Respirations even/unlabored bilaterally. Will continue to monitor.
[2020-07-18 18:30] VITALS: BP 146/91; PULSE 92; RESP 20; TEMP 36.6; O2SAT 97
[2020-07-18 20:07] VITALS: BP 146/83; PULSE 105
[2020-07-18] MEDS: cloNIDine HCL 0.2 MG TABLET PO (20:07)
[2020-07-18] MEDS: diphenhydrAMINE HCL 25 MG TABLET 50 MG PO (20:07)
[2020-07-18] MEDS: Benztropine Mesylate 1 MG TABLET PO (20:07)
[2020-07-18] MEDS: busPIRone HCl 5 MG TABLET 15 MG PO (20:07)
--- NOTE | 2020-07-18 21:07 | PC.ADMIT ---
Pt is a 49 year old male who presents to from [facility] at aprrox 17:35 on a cv status. Pt is covid - Pt refused Utox . Pt assessed by CARE team. Pt reported that he has been off his medication for approx two weeks. Pt reported SI with plan to shoot himself or cut. Pt verbalized that he hears voices all the time. Pt has a hx of trauma. Pt has a hx of substance abuse. Pt has been kown to before. DR Allan called for orders and notified of admission.
[2020-07-19 06:00] VITALS: BP 159/90; PULSE 97
[2020-07-19] MEDS: Benztropine Mesylate 1 MG TABLET PO ×2 (09:04→20:00)
[2020-07-19] MEDS: busPIRone HCl 5 MG TABLET 15 MG PO ×3 (09:04→20:01)
[2020-07-19] MEDS: hydroCHLOROthiazide 25 MG TABLET PO (09:05)
[2020-07-19] MEDS: Omeprazole 20 MG CAPSULE.DR PO (09:05)
[2020-07-19 09:09] VITALS: BP 159/90; PULSE 97
[2020-07-19] MEDS: Propranolol HCL LA 60 MG CAP.SA.24H 120 MG PO (09:09)
[2020-07-19 09:10] VITALS: BP 159/90; PULSE 97
[2020-07-19] MEDS: amLODIPine Besylate 10 MG TABLET PO (09:10)
[2020-07-19] MEDS: lisinopriL 5 MG TABLET PO (09:10)
[2020-07-19] MEDS: HaloperidoL 5 MG TABLET PO ×2 (11:46→20:00)
[2020-07-19] MEDS: buPROPion HCL 100 MG TABLET PO (11:51)
[2020-07-19] MEDS: LORazepam 1 MG TABLET PO ×2 (12:06→22:56)
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
[2020-07-19 18:00] VITALS: BP 138/98; PULSE 85; RESP 16; TEMP 36.2; O2SAT 99
[2020-07-19] MEDS: diphenhydrAMINE HCL 25 MG TABLET 50 MG PO (20:00)
[2020-07-19] MEDS: Melatonin 3 MG TABLET PO (20:00)
[2020-07-19] MEDS: buPROPion HCL 100 MG TABLET 200 MG PO (20:08)
[2020-07-19] MEDS: cloNIDine HCL 0.2 MG TABLET PO (20:09)
[2020-07-20] MEDS: LORazepam 1 MG TABLET 2 MG PO ×4 (04:04→16:56)
[2020-07-20] MEDS: Omeprazole 20 MG CAPSULE.DR PO (04:05)
[2020-07-20 06:00] VITALS: BP 138/75; PULSE 72; TEMP 36; O2SAT 99
[2020-07-20] MEDS: buPROPion HCL 100 MG TABLET 300 MG PO (08:59)
[2020-07-20] MEDS: HaloperidoL 5 MG TABLET PO ×4 (08:59→20:00)
[2020-07-20] MEDS: Benztropine Mesylate 1 MG TABLET PO ×2 (08:59→20:00)
[2020-07-20 09:00] VITALS: BP 138/75; PULSE 72
[2020-07-20] MEDS: Propranolol HCL LA 60 MG CAP.SA.24H 120 MG PO (09:00)
[2020-07-20] MEDS: amLODIPine Besylate 10 MG TABLET PO (09:00)
[2020-07-20 09:01] VITALS: BP 138/75; PULSE 72
[2020-07-20] MEDS: lisinopriL 5 MG TABLET PO (09:01)
[2020-07-20] MEDS: hydroCHLOROthiazide 25 MG TABLET PO (09:01)
[2020-07-20] MEDS: busPIRone HCl 5 MG TABLET 15 MG PO ×3 (09:01→20:01)
[2020-07-20] MEDS: buPROPion HCl XL 300 MG TAB.ER.24H PO (12:39)
[2020-07-20] MEDS: Bismuth Subsalicylate 262 MG TABLET PO (12:39)
--- NOTE | 2020-07-20 15:45 | P.PNPSI_ITS ---
Subjective Subjective Date of Service: 07/20/20 Reason For Visit: PTSD, Schizoaffective Disorder, TBI Hx Subjective Notes: Conditional Voluntary Healthcare Proxy: No Guardianship: No Medical Problems Affecting Mental Status: Yes (TBI) Interim History: Pt continues to be very focused on medicines, dosages and that he is being taken advantage of and unheard. Regime from previous admission re plicated to the best of our ability. We have to wait for confirmation from [facility] resp[facility] as to when Haldol injection was given-they have not been able to access this. We have clarified Wellbutrin and ordered it several times at pt's demand, he still is confrontive about this, reports vomiting it and wanting more, reports he wants a few days dosage at a time. Education attempted by the entire team which he is struggling with. Wanting to file legal and [facility] complaint, which is facilitated for pt. Pt tells TW in meeting today that our job is just to do as he demands. Discussed responsiblity for his well-being with him. Medication Compliance: Yes Side effects from medications: Yes (vomited today after lunch he reports-reports he is eating off others trays ) Attending Groups: No Review of Systems Review of Systems Yes all other systems are reviewed and are negative Reports behavioral changes and Reports confusion Psychiatric: Reports anxiety, Reports behavioral changes, Reports confusion, Reports auditory hallucinations, Reports hopelessness, Reports irritability, Reports anhedonia, Reports mood swings, Reports paranoia and Reports hallucinations Mental Status Exam Mental Status Exam Patient Appearance: Appropriate Patient Orientation: Person, Place and Time Level of Consciousness: Alert Patient Behavior: Guarded, Talkative, Suspicious, Aggressive, Restless, Belligerent, Wandering, Verbal Threats, Anxious, Fearful, Resistive to Care, Avoidant, Fatigued, Distractible, Good Eye Contact and Uncooperative Mood Description: Labile and Angry Affect Description: Labile Patient Cognition Impaired: Yes Ability to Follow Directions: Poor Speech Pattern: Perseverating, Spontaneous Speech, Cofabulation and Excessive Memory Description: Remote Impaired and Episodic Impaired Hallucinations: None Delusions: Paranoid Ideation and Present Thought Process: Illogical and Distracted Thought Content: positive for Circumstantial, positive for Perseveration, positive for Preoccupation and positive for Tangential Depressive Symptoms: Diff. Making Decisions, Increased Irritability, Loss of Int. in Activity, Unhappiness and Difficulty Concentrating Abnormal Motor Activity Signs and Symptoms: Aggression, Agitation and Restlessness Judgement: Poor Diagnostics Vital Signs (24Hr): Vital Signs - 24 hr 07/19/20 18:00 07/20/20 06:00 07/20/20 09:00 Temperature 97.2 F 96.8 F Pulse Rate 85 72 72 Respiratory Rate 16 Blood Pressure 138/98 H 138/75 138/75 Pulse Oximetry 99 99 07/20/20 09:01 Temperature Pulse Rate 72 Respiratory Rate Blood Pressure 138/75 Pulse Oximetry Body Mass Index 29.8 Labs Results: 07/18/20 11:22 07/18/20 11:23 Medications Medications Current Medications Generic Name Dose Route Start Last Admin Trade Name Freq PRN Reason Stop Dose Admin Acetaminophen 650 mg 07/18/20 18:48 Acetaminophen 325 Mg Tablet PO Q6H PRN Headache/Pain Mild Scale (1-3) Al Hydroxide/Mg Hydroxide 30 ml 07/18/20 19:05 Magnesium Hydrox/Alum Hydrox 30 Ml Oral.Susp PO Q6H PRN Heartburn/Nausea Amlodipine Besylate 10 mg 07/19/20 11:30 07/20/20 09:00 Amlodipine Besylate 10 Mg Tablet PO 10 mg DAILY VONDA Administration Protocol Benztropine Mesylate 1 mg 07/19/20 11:30 07/20/20 08:59 Benztropine Mesylate 1 Mg Tablet PO 1 mg BID VONDA Administration Bismuth Subsalicylate 262 mg 07/19/20 11:20 07/20/20 12:39 Bismuth Subsalicylate 262 Mg Tablet PO 262 mg DAILY PRN Administration Dyspepsia Bupropion HCl 600 mg 07/21/20 09:00 Bupropion Hcl Xl 150 Mg Tab.Er.24h PO DAILY VONDA Buspirone HCl 15 mg 07/19/20 15:00 07/20/20 14:26 Buspirone Hcl 5 Mg Tablet PO 15 mg TID VONDA Administration Clonidine HCl 0.2 mg 07/19/20 21:00 07/19/20 20:09 Clonidine Hcl 0.2 Mg Tablet PO 0.2 mg BEDTIME VONDA Administration Protocol Diphenhydramine HCl 50 mg 07/19/20 21:00 07/19/20 20:00 Diphenhydramine Hcl 25 Mg Tablet PO 50 mg BEDTIME VONDA Administration Diphenhydramine HCl 25 mg 07/19/20 11:36 Diphenhydramine Hcl 25 Mg Tablet PO Q4H PRN EPS Diphenhydramine HCl 50 mg 07/19/20 15:59 Diphenhydramine Hcl 50 Mg/Ml Vial IM Q4H PRN dystonia Haloperidol 5 mg 07/19/20 21:00 07/20/20 08:59 Haloperidol 5 Mg Tablet PO 5 mg BID VONDA Administration Haloperidol 5 mg 07/19/20 15:59 07/20/20 14:26 Haloperidol 5 Mg Tablet PO 5 mg Q4H PRN Administration agitation Haloperidol Decanoate 100 mg 07/19/20 16:02 Haloperidol Decanoate 50 Mg/Ml Ampul IM 07/19/20 16:03 ONCE ONE Hydrochlorothiazide 25 mg 07/19/20 11:30 07/20/20 09:01 Hydrochlorothiazide 25 Mg Tablet PO 25 mg DAILY VONDA Administration Protocol Hydroxyzine HCl 25 mg 07/18/20 18:48 Hydroxyzine Hcl 25 Mg Tablet PO BEDTIME PRN Anxiety Lisinopril 5 mg 07/19/20 12:00 07/20/20 09:01 Lisinopril 5 Mg Tablet PO 5 mg DAILY VONDA Administration Protocol Lorazepam 2 mg 07/19/20 16:04 07/20/20 14:26 Lorazepam 1 Mg Tablet PO 2 mg Q4H PRN Administration AGITATION Lorazepam 1 mg 07/19/20 16:04 07/19/20 22:56 Lorazepam 1 Mg Tablet PO 1 mg BID PRN Administration Anxiety Magnesium Hydroxide 30 ml 07/18/20 18:48 Milk Of Magnesia 30 Ml Oral.Susp PO DAILY PRN Constipation Melatonin 3 mg 07/19/20 21:00 07/19/20 20:00 Melatonin 3 Mg Tablet PO 3 mg BEDTIME VONDA Administration Nicotine Polacrilex 4 mg 07/19/20 16:03 Nicotine Polacrilex 4 Mg Lozenge BUCCAL Q2H PRN Nicotine Cravings Omeprazole 20 mg 07/19/20 11:30 07/20/20 04:05 Omeprazole 20 Mg Capsule.Dr PO 20 mg DAILY@0630 VONDA Administration Propranolol HCl 120 mg 07/19/20 09:00 07/20/20 09:00 Propranolol Hcl La 60 Mg Cap.Sa.24h PO 120 mg DAILY VONDA Administration Protocol Trazodone HCl 50 mg 07/18/20 18:48 Trazodone Hcl 50 Mg Tablet PO BEDTIME PRN Insomnia Allergies Allergies Allergy/AdvReac Type Severity Reaction Status Date / Time No Known Allergies Allergy Verified 06/16/20 08:00 Assessment & Plan Assessment & Plan (1) Chronic post-traumatic stress disorder (PTSD): Status: Chronic Code(s): F43.12 - Post-traumatic stress disorder, chronic (2) Schizoaffective disorder: Status: Chronic Code(s): F25.9 - Schizoaffective disorder, unspecified Assessment and Plan: Evlira is a 49 yo male, history of PTSD, TBI, Schizoaffective Disorder, reported cocaine and cannabis abuse recently. He was recently discharged from to [facility], completed the program, left, returned to have an injection in June 2020, then stopped all medications and treatment. He has been homeless, living in a tent, and using cannabis and cocaine, however there is no toxicology to affirm this report. Call to [facility] who reports he did complete his stay, left without his TAVAREZ, did return in June for this injection (they do not have dates). Pt requrests to return to his regime but will not tolerate titration, demands we begin where he was when he left. Education provided of risk and benefit regarding this choice. Pt on the unit is challenging, labile. Plan: 1. Continue to re-establish previous regime. 2. Attempt to gather collateral information. 3. Call [facility] on 07/21 to learn the date of most recent Haldol IM-[facility] coverage cannot access this information on the weekend. (3) TBI (traumatic brain injury): Status: Chronic Code(s): S06.9X9A - Unspecified intracranial injury with loss of consciousness of unspecified duration, initial encounter Greater than 50% of the session was spent on counseling and/or coordination of care Reason for contiued inpatient stay Substantial Risk for: harm to self, harm to others, inability to function and rapid decompensation
[2020-07-20 18:00] VITALS: BP 115/75; PULSE 77; RESP 16; TEMP 36.7; O2SAT 99
[2020-07-20] MEDS: cloNIDine HCL 0.2 MG TABLET PO (19:59)
[2020-07-20] MEDS: Melatonin 3 MG TABLET PO (20:00)
[2020-07-20] MEDS: diphenhydrAMINE HCL 25 MG TABLET 50 MG PO (20:00)
[2020-07-20] MEDS: QUEtiapine Fumarate 200 MG TABLET PO (21:41)
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
[2020-07-21 06:00] VITALS: BP 141/81; PULSE 104
[2020-07-21] MEDS: Bismuth Subsalicylate 262 MG TABLET PO (09:40)
[2020-07-21 09:41] VITALS: BP 141/81; PULSE 104
[2020-07-21] MEDS: Omeprazole 20 MG CAPSULE.DR PO (09:41)
[2020-07-21] MEDS: busPIRone HCl 5 MG TABLET 15 MG PO ×2 (09:41→13:36)
[2020-07-21] MEDS: Benztropine Mesylate 1 MG TABLET PO (09:41)
[2020-07-21] MEDS: buPROPion HCl XL 150 MG TAB.ER.24H 600 MG PO (09:41)
[2020-07-21] MEDS: amLODIPine Besylate 10 MG TABLET PO (09:41)
[2020-07-21 09:42] VITALS: BP 141/81; PULSE 104
[2020-07-21] MEDS: Propranolol HCL LA 60 MG CAP.SA.24H 120 MG PO (09:42)
[2020-07-21] MEDS: HaloperidoL 5 MG TABLET PO ×2 (09:43→11:36)
[2020-07-21] MEDS: hydroCHLOROthiazide 25 MG TABLET PO (09:43)
[2020-07-21 09:45] VITALS: BP 141/81; PULSE 104
[2020-07-21] MEDS: lisinopriL 5 MG TABLET PO (09:45)
--- NOTE | 2020-07-21 10:51 | HO.PSYCHPN ---
Subjective Subjective Date of Service: 07/21/20 Reason For Visit: PTSD, Schizoaffective Disorder, TBI Hx Interim History: reports SI is much less and now at his baseline, which he says is passive and able to ignore. met with emiliana Langford's outpatient case manager who came onto the unit and agrees that patient is pretty much at his baseline. Diagnostics Vital Signs (24Hr): Vital Signs - 24 hr 07/20/20 18:00 07/21/20 09:41 07/21/20 09:42 Temperature 98.1 F Pulse Rate 77 104 H 104 H Respiratory Rate 16 Blood Pressure 115/75 141/81 H 141/81 H Pulse Oximetry 99 07/21/20 09:45 Temperature Pulse Rate 104 H Respiratory Rate Blood Pressure 141/81 H Pulse Oximetry Body Mass Index 29.8 Labs Results: 07/18/20 11:22 07/18/20 11:23 Medications Medications Current Medications Generic Name Dose Route Start Last Admin Trade Name Freq PRN Reason Stop Dose Admin Acetaminophen 650 mg 07/18/20 18:48 Acetaminophen 325 Mg Tablet PO Q6H PRN Headache/Pain Mild Scale (1-3) Al Hydroxide/Mg Hydroxide 30 ml 07/18/20 19:05 Magnesium Hydrox/Alum Hydrox 30 Ml Oral.Susp PO Q6H PRN Heartburn/Nausea Amlodipine Besylate 10 mg 07/19/20 11:30 07/21/20 09:41 Amlodipine Besylate 10 Mg Tablet PO 10 mg DAILY VONDA Administration Protocol Benztropine Mesylate 1 mg 07/19/20 11:30 07/21/20 09:41 Benztropine Mesylate 1 Mg Tablet PO 1 mg BID VONDA Administration Bismuth Subsalicylate 262 mg 07/19/20 11:20 07/21/20 09:40 Bismuth Subsalicylate 262 Mg Tablet PO 262 mg DAILY PRN Administration Dyspepsia Bupropion HCl 600 mg 07/21/20 09:00 07/21/20 09:41 Bupropion Hcl Xl 150 Mg Tab.Er.24h PO 600 mg DAILY VONDA Administration Buspirone HCl 15 mg 07/19/20 15:00 07/21/20 09:41 Buspirone Hcl 5 Mg Tablet PO 15 mg TID VONDA Administration Clonidine HCl 0.2 mg 07/19/20 21:00 07/20/20 19:59 Clonidine Hcl 0.2 Mg Tablet PO 0.2 mg BEDTIME VONDA Administration Protocol Diphenhydramine HCl 50 mg 07/19/20 21:00 07/20/20 20:00 Diphenhydramine Hcl 25 Mg Tablet PO 50 mg BEDTIME VONDA Administration Diphenhydramine HCl 25 mg 07/19/20 11:36 Diphenhydramine Hcl 25 Mg Tablet PO Q4H PRN EPS Diphenhydramine HCl 50 mg 07/19/20 15:59 Diphenhydramine Hcl 50 Mg/Ml Vial IM Q4H PRN dystonia Haloperidol 5 mg 07/19/20 21:00 07/21/20 09:43 Haloperidol 5 Mg Tablet PO 5 mg BID VONDA Administration Haloperidol 5 mg 07/19/20 15:59 07/20/20 14:26 Haloperidol 5 Mg Tablet PO 5 mg Q4H PRN Administration agitation Haloperidol Decanoate 100 mg 07/19/20 16:02 Haloperidol Decanoate 50 Mg/Ml Ampul IM 07/19/20 16:03 ONCE ONE Hydrochlorothiazide 25 mg 07/19/20 11:30 07/21/20 09:43 Hydrochlorothiazide 25 Mg Tablet PO 25 mg DAILY VONDA Administration Protocol Hydroxyzine HCl 25 mg 07/18/20 18:48 Hydroxyzine Hcl 25 Mg Tablet PO BEDTIME PRN Anxiety Lisinopril 5 mg 07/19/20 12:00 07/21/20 09:45 Lisinopril 5 Mg Tablet PO 5 mg DAILY VONDA Administration Protocol Lorazepam 2 mg 07/19/20 16:04 07/20/20 16:56 Lorazepam 1 Mg Tablet PO 2 mg Q4H PRN Administration AGITATION Lorazepam 1 mg 07/19/20 16:04 07/19/20 22:56 Lorazepam 1 Mg Tablet PO 1 mg BID PRN Administration Anxiety Magnesium Hydroxide 30 ml 07/18/20 18:48 Milk Of Magnesia 30 Ml Oral.Susp PO DAILY PRN Constipation Melatonin 3 mg 07/19/20 21:00 07/20/20 20:00 Melatonin 3 Mg Tablet PO 3 mg BEDTIME VONDA Administration Nicotine Polacrilex 4 mg 07/19/20 16:03 Nicotine Polacrilex 4 Mg Lozenge BUCCAL Q2H PRN Nicotine Cravings Omeprazole 20 mg 07/19/20 11:30 07/21/20 09:41 Omeprazole 20 Mg Capsule.Dr PO 20 mg DAILY@0630 VONDA Administration Propranolol HCl 120 mg 07/19/20 09:00 07/21/20 09:42 Propranolol Hcl La 60 Mg Cap.Sa.24h PO 120 mg DAILY VONDA Administration Protocol Trazodone HCl 50 mg 07/18/20 18:48 Trazodone Hcl 50 Mg Tablet PO BEDTIME PRN Insomnia Allergies Allergies Allergy/AdvReac Type Severity Reaction Status Date / Time No Known Allergies Allergy Verified 06/16/20 08:00 Assessment & Plan Assessment & Plan (1) Chronic post-traumatic stress disorder (PTSD): Status: Chronic Code(s): F43.12 - Post-traumatic stress disorder, chronic (2) Schizoaffective disorder: Status: Chronic Code(s): F25.9 - Schizoaffective disorder, unspecified Assessment and Plan: Elvira is a 49 yo male, history of PTSD, TBI, Schizoaffective Disorder, reported cocaine and cannabis abuse recently. He was recently discharged from to [facility] with [facility], completed the program, left, returned to have an injection in June 2020, then stopped all medications and treatment. He has been homeless, living in a tent, and using cannabis and cocaine, however there is no toxicology to affirm this report. Call to [facility] who reports he did complete his stay, left without his TAVAREZ, did return in June for this injection (they do not have dates). Pt requrests to return to his regime but will not tolerate titration, demands we begin where he was when he left. Education provided of risk and benefit regarding this choice. Pt on the unit is challenging, labile. Plan: 1. Continue to re-establish previous regime. 2. Attempt to gather collateral information. 3. Call [facility] on 07/21 to learn the date of most recent Haldol IM-[facility] coverage cannot access this information on the weekend. (3) TBI (traumatic brain injury): Status: Chronic Code(s): S06.9X9A - Unspecified intracranial injury with loss of consciousness of unspecified duration, initial encounter Greater than 50% of the session was spent on counseling and/or coordination of care
[2020-07-21] MEDS: LORazepam 1 MG TABLET 2 MG PO (11:36)
--- NOTE | 2020-07-21 14:50 | P.DS_ITS ---
DS: Providers Provider Date of Service: 07/21/20 Date of admission: 07/18/20 18:48 Date of discharge: 07/21/20 Primary care physician: Unknown Physician Attending physician on discharge: Robbie Garcia DS: Diagnosis Discharge Diagnosis (1) Chronic post-traumatic stress disorder (PTSD): Status: Chronic (2) Schizoaffective disorder: Status: Chronic Problem details: bipolar type (3) TBI (traumatic brain injury): Status: Chronic DS: Medications Discharge Medications Home Medications: Previous Rx's Medication Instructions Recorded amlodipine 10 mg PO DAILY 30 Days #30 tab 06/22/20 benztropine 1 mg PO BID 30 Days #60 tab 06/22/20 buspirone 15 mg PO TID 30 Days #90 tab 06/22/20 clonidine HCl 0.2 mg PO BEDTIME 30 Days #30 tab 06/22/20 diphenhydramine HCl 50 mg PO BEDTIME 30 Days #30 cap 06/22/20 hydrochlorothiazide 25 mg PO DAILY 30 Days #30 tab 06/22/20 lisinopril 5 mg PO DAILY 30 Days #30 tab 06/22/20 melatonin 3 mg PO BEDTIME PRN 30 Days #30 tab 06/22/20 omeprazole 20 mg PO DAILY@0630 30 Days #30 cap 06/22/20 propranolol 120 mg PO DAILY 30 Days #30 cap 06/22/20 bupropion HCl 300 mg PO BID 30 Days #60 tab MDD 06/23/20 600mg Discharge Plan Discharge Patient Disposition: [facility]pc Discharge Diagnosis: Schizoaffective disorder, bipolar type Referrals: Dr. Rico Bravo, psychiatrist, [facility] [Other] - 07/24/20 11:30 am Physician,Unknown [Primary Care Provider] - 1 Week Discharge Medications: New haloperidol 5 mg Tablet 5 mg PO BID PRN (Reason: agitation) 30 Days Qty: 28 RF: 0 haloperidol decanoate [Haldol Decanoate] 100 mg/mL solution 100 mg IM Q2W 14 Days Qty: 1 RF: 1 Continued diphenhydramine HCl 50 mg capsule 50 mg PO BEDTIME 30 Days Qty: 30 RF: 0 melatonin 3 mg Tablet 3 mg PO BEDTIME PRN (Reason: insomnia) 30 Days Qty: 30 RF: 0 clonidine HCl 0.2 mg Tablet 0.2 mg PO BEDTIME 30 Days Qty: 30 RF: 0 amlodipine 10 mg Tablet 10 mg PO DAILY 30 Days Qty: 30 RF: 0 benztropine 1 mg Tablet 1 mg PO BID 30 Days Qty: 60 RF: 0 omeprazole 20 mg Capsule,Delayed Release(Dr/Ec) 20 mg PO DAILY@0630 30 Days Qty: 30 RF: 0 lisinopril 5 mg Tablet 5 mg PO DAILY 30 Days Qty: 30 RF: 0 hydrochlorothiazide 25 mg Tablet 25 mg PO DAILY 30 Days Qty: 30 RF: 0 buspirone 15 mg Tablet 15 mg PO TID 30 Days Qty: 90 RF: 0 propranolol 120 mg Capsule,Extended Release 24hr 120 mg PO DAILY 30 Days Qty: 30 RF: 0 bupropion HCl 300 mg Tablet Extended Release 24 Hr 300 mg PO BID MDD 600mg 30 Days Qty: 60 RF: 0 Discharge Orders: Discharge Order (Routine); Ordered 07/21/20 Ordered By: Robbie Garcia Diet: regular diet Activity on Discharge: As tolerated Stand Alone Forms: Patient Portal Discharge page, Community Support Care Plan Goals: Maintain mood and safe behaviors Take medications as prescribed Continue to pursue sobriety Practice coping skills Continue with outpatient providers and reach out to them as needed Health Concerns: Mood instability and behaviors cocaine abuse High Blood pressure Plan of Treatment: Follow up with your out patient providers regarding above concerns Take medications as prescribed Assessment: Risk assessment at time of discharge: Patient has been observed closely by nursing and unit staff throughout admiss ion; patient has been irritable on unit and would sometimes verbally spar with patients and staff. He was also able to be directed and able to demonstrate appropriate behaviors and impulse control. Patient was interviewed prior to discharge and found to be fully oriented and without any SI or HI. Patient has insight and demonstrates good judgment in terms of wanting to pursue treatment. Patient is not in imminent risk of harm to self or others and has a safety plan that includes presenting to the closest ER or calling 911 if feeling unsafe. Discharge Date/Time: 07/21/20 15:41 Mental Status Exam Mental Status Exam Narrative: Pt is alert and oriented; behavior is cooperative, friendly and calm though pt could also be irritable; patient is not in distress; dressed in casual attire with adequate hygiene; mood is described as good and affect congruent; eye contact appropriate; Speech is normal rate, volume and prosody and not pressured; no psychomotor agitation/retardation present; thought process is organized, linear, logical and goal directed. Thought content is on discharge and otherwise pertinent to relevant topics and without any delusional content, paranoid ideations or grandiosity expressed; he denies any SI/HI. Pt endorses AH but says they are chonic and currently minimal and able to be ignored. Patients insight and judgment appear intact. Data Data Completed and Pending Completed studies during hospitalization [Text1]: 07/18/20 07/18/20 07/18/20 11:22 11:22 11:23 WBC 3.7 L RBC 4.43 L Hgb 14.6 Hct 43.2 MCV 97.5 MCH 33.0 MCHC 33.8 RDW 12.9 Plt Count 186 MPV 9.8 Immature Gran % (Auto) 0.0 Neut % (Auto) 57.3 Lymph % (Auto) 27.8 [place] % (Auto) 9.8 Eos % (Auto) 4.6 H Baso % (Auto) 0.5 Lymph # (Auto) 1.0 L [place] # (Auto) 0.4 Eos # (Auto) 0.2 Baso # (Auto) 0.0 Abs Immat Gran (auto) 0.00 Absolute Neuts (auto) 2.1 Absolute Nucleated RBC 0.000 Nucleated RBC % (auto) 0.0 Sodium 139 Potassium 4.0 Chloride 102 Carbon Dioxide 29 Anion Gap 12 BUN 14 Creatinine 1.20 Estim Creat Clear Calc 92.0 Estimated GFR > 60 Random Glucose 112 Calcium 9.7 Total Bilirubin 0.9 Direct Bilirubin 0.4 AST 79 H ALT 40 Alkaline Phosphatase 78 Total Protein 7.1 Albumin 4.0 Ethyl Alcohol COVID-19 (FABIAN) Negative COVID-19 Clin Com See Note 07/18/20 11:23 WBC RBC Hgb Hct MCV MCH MCHC RDW Plt Count MPV Immature Gran % (Auto) Neut % (Auto) Lymph % (Auto) [place] % (Auto) Eos % (Auto) Baso % (Auto) Lymph # (Auto) [place] # (Auto) Eos # (Auto) Baso # (Auto) Abs Immat Gran (auto) Absolute Neuts (auto) Absolute Nucleated RBC Nucleated RBC % (auto) Sodium Potassium Chloride Carbon Dioxide Anion Gap BUN Creatinine Estim Creat Clear Calc Estimated GFR Random Glucose Calcium Total Bilirubin Direct Bilirubin AST ALT Alkaline Phosphatase Total Protein Albumin Ethyl Alcohol < 10 COVID-19 (FABIAN) COVID-19 Clin Com DS: Summary Hospital Course Hospital Course: Pt is a 49 yo male with hx of schizoaffective disorder, extensive trauma hx and PTSD, TBI and hx of incarcerations and intermittent substance abuse who presents for disorganized behavior, AH, worsening depression, ragefullness/fights and SI in context of homelessness being off of his meds and cocaine abuse. Pt admitted on CV. on admission He was restarted on home medications. patient denied SI or HI. On unit, patient Had moments where he felt triggered or disrespected by staff or peers and which sometimes respond emotionally; however he never threatening was able to be redirected. He was sometimes intrusive and could be demanding of needs and frustrated when needs not quickly met and At one point pt told staff that?s it?s the staffs job to do as he demands and wanted to file legal and [facility] complaint, which is facilitated. however these behaviors are present even at patient's baseline. To patient's credit, there was a peer on the unit who was trying to provoke patient and made racial epithets towards and yet patient was able to ignore him, take these comments in stride and accept that the peer had psychiatric problems. Now that he was back on his home medications, he asked for discharge as he was concerned that his bank account h ad become compromised. He reported he was in a good mood, that auditory hallucinations were low and easily ignored and that he had no SI or HI. He also agreed that he would represent if he felt unsafe. Compo Caster had worked with patient during previous admission and to newswriter, patient seemed to be at baseline. Patient's correctional case manager who has known him for years, Deshaun Saini, came to the unit, met with patient and agreed that he was indeed at baseline. at this time, it seemed that the therapeutic benefits of inpatient admission had reached their maximum, as patient was on helpful medications, was wanting discharge and was no longer looking for further treatment. There seemed little utility in keeping patient an extra day or so on the unit as he was concerned about his bank account; keeping him further would not help find him housing or result in improved behavioral control and would much more likely trigger patient has irritability by holding him against his will. He has a long hx of psychiatric illness and emotional reactivity dating back to childhood and it is likely that at some point he will again struggle with becoming dysregulated, these remain chronic issues, of which patient is well aware, continues to work on and will not resolve by a longer stay on an inpatient unit. He was not in imminent risk of self harm or harm of others and does not meet criteria for involuntary commitment; his request for discharge is honored. Medications: Wellbutrin 600mg at last admission, this was medication dose was reviewed. It was confirmed this was the daily dose he was getting in [facility]. Though it exceeds recommended max dose patient reports this medicaiton has kept him from being violent; side- effects and risks of taking this medication at this dose were thoroughly reviewed; pt understands risks of taking this dose and is fine with risks, feeling benefit far outweighs it. Pt has chronic TD which was discussed. He understands this is a side-effect of Haldol but remains adamant that the benefit of Haldol far outweighs this side-effect and wants to continue with current regimen. Patient cites medications as having rescued him from a life-time of psychosis, depression and rage. Time Spent with Patient Time attestation: Total time spent providing and/or coordinating discharge services:
== END 2020-07-21 15:41 | disposition home or self-care (01) | DRG 885 ==
LOC: HO.ED 18:57 → HO.PM5 19:28
PROVIDERS: Physician Assistant; Admitting Provider Psychiatry & Neurology Psychiatry; Emergency Provider Emergency Medicine Emergency Medical Services; Visit Provider Psychiatry & Neurology Psychiatry
DX: F25.0 Schizoaffective disorder, bipolar type (principal); F43.12 Post-traumatic stress disorder, chronic; Z20.822 Contact with and (suspected) exposure to COVID-19; Z87.820 Personal history of traumatic brain injury; F17.210 Nicotine dependence, cigarettes, uncomplicated; Z71.6 Tobacco abuse counseling; Z59.0 Homelessness; Z91.5 Personal history of self-harm; Z79.899 Other long term (current) drug therapy
CPT/HCPCS: 36415; 80048; 80076; 82077; 85025; 87635; 93005; 99285; Q0163

== ENCOUNTER 2020-08-07 09:22 | Emergency (ER) | payer MEDICAID, SELFPAY ==
[2020-08-07] VITALS (7 sets, daily range): BP systolic 122–143; BP diastolic 83–89; PULSE 83–100; RESP 16–18; TEMP 36.2–37; O2SAT 96–100; BMI 33.9
--- NOTE | 2020-08-07 09:43 | ECG_ITS ---
Test Reason : DRUG USE Blood Pressure : / mmHG Vent. Rate : 094 BPM Atrial Rate : 094 BPM P-R Int : 134 ms QRS Dur : 070 ms QT Int : 382 ms P-R-T Axes : 070 029 015 degrees QTc Int : 477 ms Normal sinus rhythm Normal ECG When compared with ECG of 18-JUL-2020 18:10, No significant change was found Referred By: Lenka Fajardo Electronically Signed By:Joel Jimenez
[2020-08-07 10:12] LABS: MANUAL DIFF FLAG NO
[2020-08-07 10:14] LABS: Basophils Percent Auto 0.7 % (0-2); Eosinophils Absolute Auto 0.1 X10*3/uL (0.0-0.4); Eosinophils Percent Auto 1.4 % (0-4); Hemoglobin 14.8 g/dl (14.0-18.0); Lymphocytes Absolute Auto 1.2 X10*3/uL (1.2-4.9); Lymphocytes Percent Auto 26.6 % (20-40); Mean Corpuscular HGB Conc 35.2 g/dl (31.0-36.0); Mean Corpuscular Hemoglobin 33.5 pg (27.0-33.0); Mean Platelet Volume 10.1 fL (9.4-12.4); Monocytes Absolute Auto 0.4 X10*3/uL (0.1-1.2); Monocytes Percent Auto 8.5 % (2-11); Neutrophils Absolute Auto 2.7 X10*3/uL (2.0-8.3); Neutrophils Percent Auto 62.8 % (45-73); Platelet Count 225 X10*3/uL (160-400); Red Blood Count 4.42 X10*6/uL (4.60-5.80); Red Cell Distribution Width 12.3 % (11.0-16.0); White Blood Count 4.3 X10*3/uL (4.8-10.8)
--- NOTE | 2020-08-07 10:15 | ED_ITS ---
HPI - Psych General Chief Complaint: Psychiatric Symptoms Stated Complaint: SI Time Seen by Provider: 08/07/20 09:28 Source: patient and EMS Mode of arrival: EMS Limitations: no limitations History of Present Illness HPI Narrative: 50-year-old male with a past medical history of schizoaffective disorder, bipolar, extensive trauma with PTSD, history of TBI, intermittent substance abuse with recent admission to from 07/19-07/21/2020 presenting to the ED via EMS with complaints of increased anxiety/depression with SI thoughts to take a razor blade and cut all his arms up. He is currently homeless living in a tent. Admits to auditory and visual hallucinations. Reports last used cocaine that he sniffed yesterday. Psych meds since he has been discharged from . Denies any other drug usage. Denies any alcohol usage. Denies any HI. Patient denies any other symptoms complaints or concerns at this time. MD complaint: suicidal ideation, feels depressed, anxiety, substance abuse and hallucinations Onset (ago): day(s) (Days worse today) Duration: constant History of same: Yes Relieving factors: none Exacerbating factors: none Context: recent drug abuse and not taking psychiatric medications Associated psychiatric symptoms: depression, suicidal ideation, homicidal ideation, racing thoughts, auditory hallucinations and visual hallucinations Associated symptoms: denies other symptoms Treatments prior to arrival: none If self harm: admits thoughts of self harm and has plan Related Data Previous Rx's Medication Instructions Recorded amlodipine 10 mg PO DAILY 30 Days #30 tab 07/21/20 benztropine 1 mg PO BID 30 Days #60 tab 07/21/20 bupropion HCl 300 mg PO BID 30 Days #60 tab MDD 07/21/20 600mg buspirone 15 mg PO TID 30 Days #90 tab 07/21/20 clonidine HCl 0.2 mg PO BEDTIME 30 Days #30 tab 07/21/20 diphenhydramine HCl 50 mg PO BEDTIME 30 Days #30 cap 07/21/20 haloperidol 5 mg PO BID PRN 30 Days #28 tab 07/21/20 haloperidol decanoate [Haldol 100 mg IM Q2W 14 Days #1 ml 07/21/20 Decanoate] hydrochlorothiazide 25 mg PO DAILY 30 Days #30 tab 07/21/20 lisinopril 5 mg PO DAILY 30 Days #30 tab 07/21/20 melatonin 3 mg PO BEDTIME PRN 30 Days #30 tab 07/21/20 omeprazole 20 mg PO DAILY@0630 30 Days #30 cap 07/21/20 propranolol 120 mg PO DAILY 30 Days #30 cap 07/21/20 Allergies Allergy/AdvReac Type Severity Reaction Status Date / Time No Known Allergies Allergy Verified 06/16/20 08:00 Review of Systems Review of Systems: Constitutional : No Fever, No Chills ENT/Mouth : No Ear Pain, No Nasal Congestion, No sore throat Eyes: No Eye Pain, No Swelling, No Redness Cardiovascular : No Chest Pain, No SOB Respiratory : No Cough, No Sputum, No Dyspnea Gastrointestinal : No ingestions, No Nausea, No Vomiting, No Diarrhea, No Hematochezia, No Melena Genitourinary : No Dysuria, No Urinary Frequency, No Hematuria Musculoskeletal : No Myalgias Skin : No Skin Lesions, No rash Neuro : No Weakness, No Numbness, No Paresthesias, No Dizziness, No Headache Psych : + Anxiety, + Depression, + SI, + thoughts of self injury, + AVH, No HI, Heme/Lymph: No Lymphadenopathy Endocrine : No Polyuria, No Polydipsia Yes all other systems are reviewed and are negative PMFSH Past Medical History Attestation statement: The following information was validated with the patient. Medical History Bipolar disorder Chronic post-traumatic stress disorder (PTSD) Coma Hallucinations HTN (hypertension) Schizoaffective disorder TBI (traumatic brain injury) Social History Social History Household Members: None Housing: Apartment Do you presently have visiting nurse or other home services: No Patient Tobacco Use Status: Current everyday Tobacco user Tobacco use type: Cigarette Cigarette Packs Per Day: 0 Cigarettes Per Day: 5 Years Smoked: 15 Second Hand Smoke Exposure: Yes Use of substances other than those prescribed or required for medical reasons: Yes Substance Use Type: Crack/Cocaine Last Used Substance: Days (ago) Advance Directives: No Advance Directives Information Provided: No service: No Sexual orientation: Don't Know Physical Exam Vital Signs: Vital Signs: Last Vital Signs Temp 98.3 F 08/07/20 14:15 Pulse 100 08/07/20 14:42 Resp 16 08/07/20 14:15 BP 122/83 08/07/20 14:42 Pulse Ox 96 08/07/20 14:15 Body Mass Index 33.9 vital signs have been reviewed as normal and appeared to be correct. Blood pressure normal. Heart rate normal. Respiration rate normal. Temperature normal. Oxygen saturation normal. Appearance: Alert. Oriented X3. No acute distress. Head: Normal external exam. Normocephalic. Atraumatic. No Treadwell signs noted. No raccoon eyes noted Eyes: PERRLA. EOMI. Conjunctiva and sclera normal. Eyelids normal. ENT: EAC normal. TM's Normal. Pharynx normal. Uvula midline. Moist mucous membranes. No trismus noted. No drooling noted. No muffled voice noted. Neck: Normal inspection. Neck supple. FROM. No adenopathy. Thyroid Normal. No meningeal signs. No neck mass noted. CVS: Normal heart rate and rhythm. Heart sound normal. No murmurs noted. Pulses normal throughout. Respiratory: No respiratory distress. Painless inspiration. Breath sounds normal. No wheezes/rales/rhonchi noted. Chest nontender. No accessory muscle usage noted or decreased air movement noted. Abdomen: Soft and nontender. Bowel sounds normal in all 4 quadrants. No distention noted. No organomegaly noted. No visible injury noted. Back: No CVA tenderness. Full range of motion noted. Skin: Skin warm and dry. Normal skin color. Normal skin turgor. No rashes/lesions/lacerations noted. Extremities: No lower extremity edema. Extremities exhibit normal range of motion. Extremities nontender. Neuro: Oriented X 3. No motor deficit. No sensory deficit. Reflexes normal. Psych: Appearance grossly normal, disheveled, mental status normal, speech and movement normal, speech clear, patient appears very sad and anxious along with depressed. Is cooperative. Patient does not have good thought process. Does not have good thought contact. Does not have good insight or judgment. Course Course Course Narrative: 9:45am - 50-year-old male with a past medical history of schizoaffective disorder, bipolar, extensive trauma with PTSD, history of TBI, intermittent substance abuse with recent admission to from 07/19-07/21/2020 presenting to the ED via EMS with complaints of increased anxiety/depression with SI thoughts to take a razor blade and cut all his arms up. He is currently homeless living in a tent. Admits to auditory and visual hallucinations. Reports last used cocaine that he sniffed yesterday. Psych meds since he has been discharged from [facility]. Denies any other drug usage. Denies any alcohol usage. Denies any HI. Plan: Labs, EKG, COVID swab then re-evaluate. Reevaluation(s) Reevaluation #1: - patient medically cleared white blood cell count 4000. BUN 19. AST 49. Negative ETOH level. Negative for COVID. All other labs are within normal limits. Therefore at this time patient is medically cleared and he is placed in position observation because he needs more time to be evaluated by crisis to be evaluated to see if he needs inpatient Psychiatric rehabilitation. I also got a tire connect from Dr. Garcia the psychiatrist on [facility] and he reported that the patient can be restarted on all his psych meds at home dose due to he has only been off the med for at the most 2 weeks. Therefore patient was restarted on all his medications. - patient awaiting crisis consult at this time will continue to monitor. Time: 12:49 Reevaluation #2: Patient was evaluated by crisis Care team earlier today and they reported that as long as the patient restarted his medications which I did restart him on the medications they would re-evaluate him tomorrow and most like ly they anticipate that the patient will be discharged. Therefore will continue to monitor. Time: 16:59 [facility] - Psych Medical Records Attestation: I reviewed the patient's medical records. Lab Data Attestation: I reviewed the patient's lab results. Result diagrams: 08/07/20 10:00 08/07/20 10:00 Labs: Lab Results 08/07/20 08/07/20 08/07/20 Range/Units 10:00 10:00 10:00 WBC 4.3 L (4.8-10.8) X10*3/uL RBC 4.42 L (4.60-5.80) X10*6/uL Hgb 14.8 (14.0-18.0) g/dl Hct 42.0 (42-52) % MCV 95.0 (80-98) fL MCH 33.5 H (27.0-33.0) pg MCHC 35.2 (31.0-36.0) g/dl RDW 12.3 (11.0-16.0) % Plt Count 225 (160-400) X10*3/uL MPV 10.1 (9.4-12.4) fL Immature Gran % (Auto) 0.0 (0.0-0.4) % Neut % (Auto) 62.8 (45-73) % Lymph % (Auto) 26.6 (20-40) % [place] % (Auto) 8.5 (2-11) % Eos % (Auto) 1.4 (0-4) % Baso % (Auto) 0.7 (0-2) % Lymph # (Auto) 1.2 (1.2-4.9) X10*3/uL [place] # (Auto) 0.4 (0.1-1.2) X10*3/uL Eos # (Auto) 0.1 (0.0-0.4) X10*3/uL Baso # (Auto) 0.0 (0.0-0.2) X10*3/uL Abs Immat Gran (auto) 0.00 (0.00-0.03) X10*3/uL Absolute Neuts (auto) 2.7 (2.0-8.3) X10*3/uL Absolute Nucleated RBC 0.000 (0.0-0.012) X10*3/uL Nucleated RBC % (auto) 0.0 (0.0-0.2) /100WBC PT 12.5 (10.8-13.0) SEC INR 1.1 (0.9-1.1) Sodium (135-145) mmol/L Potassium (3.3-5.1) mmol/L Chloride (96-108) mmol/L Carbon Dioxide (22-29) mmol/L Anion Gap (12-20) BUN (9-16) mg/dL Creatinine (0.5-1.4) mg/dL Estim Creat Clear Calc Estimated GFR Random Glucose (60-115) mg/dL Calcium (8.4-10.2) mg/dL Magnesium 2.4 (1.6-2.6) mg/dL Total Bilirubin (0.0-1.0) mg/dL AST (5-37) U/L ALT (0-40) U/L Alkaline Phosphatase (39-117) U/L Total Protein (6.5-8.0) g/dL Albumin (3.5-5.0) g/dL Lipase (8-78) U/L Ethyl Alcohol mg/dL COVID-19 (FABIAN) (Negative) COVID-19 Clin Com 08/07/20 08/07/20 08/07/20 Range/Units 10:00 10:00 10:00 WBC (4.8-10.8) X10*3/uL RBC (4.60-5.80) X10*6/uL Hgb (14.0-18.0) g/dl Hct (42-52) % MCV (80-98) fL MCH (27.0-33.0) pg MCHC (31.0-36.0) g/dl RDW (11.0-16.0) % Plt Count (160-400) X10*3/uL MPV (9.4-12.4) fL Immature Gran % (Auto) (0.0-0.4) % Neut % (Auto) (45-73) % Lymph % (Auto) (20-40) % [place] % (Auto) (2-11) % Eos % (Auto) (0-4) % Baso % (Auto) (0-2) % Lymph # (Auto) (1.2-4.9) X10*3/uL [place] # (Auto) (0.1-1.2) X10*3/uL Eos # (Auto) (0.0-0.4) X10*3/uL Baso # (Auto) (0.0-0.2) X10*3/uL Abs Immat Gran (auto) (0.00-0.03) X10*3/uL Absolute Neuts (auto) (2.0-8.3) X10*3/uL Absolute Nucleated RBC (0.0-0.012) X10*3/uL Nucleated RBC % (auto) (0.0-0.2) /100WBC PT (10.8-13.0) SEC INR (0.9-1.1) Sodium 140 (135-145) mmol/L Potassium 3.7 (3.3-5.1) mmol/L Chloride 102 (96-108) mmol/L Carbon Dioxide 30 H (22-29) mmol/L Anion Gap 12 (12-20) BUN 19 H (9-16) mg/dL Creatinine 1.18 (0.5-1.4) mg/dL Estim Creat Clear Calc 99.5 Estimated GFR > 60 Random Glucose 97 (60-115) mg/dL Calcium 10.2 (8.4-10.2) mg/dL Magnesium (1.6-2.6) mg/dL Total Bilirubin 0.7 (0.0-1.0) mg/dL AST 49 H (5-37) U/L ALT 32 (0-40) U/L Alkaline Phosphatase 80 (39-117) U/L Total Protein 7.5 (6.5-8.0) g/dL Albumin 4.3 (3.5-5.0) g/dL Lipase 36 (8-78) U/L Ethyl Alcohol < 10 mg/dL COVID-19 (FABIAN) Negative (Negative) COVID-19 Clin Com ECG Data Attestation: I personally reviewed and interpreted this ECG as follows: ECG interpretation date: 08/07/20 ECG interpretation time: 10:12 Interpretation: Normal sinus rhythm at a ventricular rate of 94 with a normal AL interval normal QRS duration normal QT/QTC interval. No acute ischemic changes are noted. Discharge Plan Discharge Clinical Impression: Schizoaffective disorder, Chronic post-traumatic stress disorder (PTSD), Bipolar disorder, Acute anxiety Prescriptions: No Action haloperidol 5 mg Tablet 5 mg PO BID PRN (Reason: agitation) 30 Days Qty: 28 RF: 0 diphenhydramine HCl 50 mg capsule 50 mg PO BEDTIME 30 Days Qty: 30 RF: 0 melatonin 3 mg Tablet 3 mg PO BEDTIME PRN (Reason: insomnia) 30 Days Qty: 30 RF: 0 clonidine HCl 0.2 mg Tablet 0.2 mg PO BEDTIME 30 Days Qty: 30 RF: 0 amlodipine 10 mg Tablet 10 mg PO DAILY 30 Days Qty: 30 RF: 0 benztropine 1 mg Tablet 1 mg PO BID 30 Days Qty: 60 RF: 0 omeprazole 20 mg Capsule,Delayed Release(Dr/Ec) 20 mg PO DAILY@0630 30 Days Qty: 30 RF: 0 lisinopril 5 mg Tablet 5 mg PO DAILY 30 Days Qty: 30 RF: 0 hydrochlorothiazide 25 mg Tablet 25 mg PO DAILY 30 Days Qty: 30 RF: 0 buspirone 15 mg Tablet 15 mg PO TID 30 Days Qty: 90 RF: 0 propranolol 120 mg Capsule,Extended Release 24hr 120 mg PO DAILY 30 Days Qty: 30 RF: 0 bupropion HCl 300 mg Tablet Extended Release 24 Hr 300 mg PO BID MDD 600mg 30 Days Qty: 60 RF: 0 haloperidol decanoate [Haldol Decanoate] 100 mg/mL solution 100 mg IM Q2W 14 Days Qty: 1 RF: 1
[2020-08-07 10:21] LABS: INTERNATIONAL NORM RATIO 1.1 (0.9-1.1); Prothrombin Time 12.5 SEC (10.8-13.0)
[2020-08-07 10:31] LABS: COVID-19 Test Negative (Negative)
[2020-08-07 10:35] LABS: Ethanol < 10 mg/dL
[2020-08-07 10:37] LABS: Alanine Aminotransferase 32 U/L (0-40); Albumin Level 4.3 g/dL (3.5-5.0); Alkaline Phosphatase 80 U/L (39-117); Anion Gap 12 (12-20); Aspartate Amino Transferase 49 U/L (5-37); Bilirubin Total 0.7 mg/dL (0.0-1.0); Blood Urea Nitrogen 19 mg/dL (9-16); Calcium 10.2 mg/dL (8.4-10.2); Carbon Dioxide 30 mmol/L (22-29); Chloride 102 mmol/L (96-108); Creatinine Clr Calc Pharmacy 99.5; Estimated Glomerular Filt Rate > 60; Glucose Random 97 mg/dL (60-115); Lipase 36 U/L (8-78); Magnesium 2.4 mg/dL (1.6-2.6); Potassium 3.7 mmol/L (3.3-5.1); Sodium 140 mmol/L (135-145); Total Protein 7.5 g/dL (6.5-8.0)
--- NOTE | 2020-08-07 10:40 | PC.NURSE ---
Pt resting comfortably in bed, no complaints at this time, calm and cooperative.
--- NOTE | 2020-08-07 11:50 | PC.NURSE ---
PT SLEEPING IN BED, IN NAD AT THIS TIME. RESP EVEN & NONLABOURED.
--- NOTE | 2020-08-07 12:30 | MHC.CARE ---
Plan for Pt to be re-started on psychiatric medication and for Pt to re-assessed tomorrow for the CARE Team.
[2020-08-07] MEDS: Omeprazole 20 MG CAPSULE.DR PO (14:08)
[2020-08-07] MEDS: amLODIPine Besylate 10 MG TABLET PO (14:08)
[2020-08-07] MEDS: Benztropine Mesylate 1 MG TABLET PO ×2 (14:08→20:30)
[2020-08-07] MEDS: lisinopriL 5 MG TABLET PO (14:08)
[2020-08-07] MEDS: hydroCHLOROthiazide 25 MG TABLET PO (14:42)
[2020-08-07] MEDS: Propranolol HCL LA 60 MG CAP.SA.24H 120 MG PO (14:42)
--- NOTE | 2020-08-07 15:16 | MHC.CARE ---
CARE Team received a return call from [facility] ACCS Team who reported they have no been in touch with Pt since discharge from . [facility] request to notify them upon discharge [place] [phone]
[2020-08-07] MEDS: busPIRone HCl 5 MG TABLET 15 MG PO ×2 (16:20→20:30)
[2020-08-07] MEDS: buPROPion HCl XL 300 MG TAB.ER.24H PO (20:30)
[2020-08-07] MEDS: HaloperidoL 5 MG TABLET PO (20:30)
[2020-08-07] MEDS: Melatonin 3 MG TABLET PO (20:30)
[2020-08-07] MEDS: cloNIDine HCL 0.2 MG TABLET PO (20:30)
[2020-08-07] MEDS: diphenhydrAMINE HCL 25 MG TABLET 50 MG PO (20:30)
[2020-08-08 06:19] VITALS: BP 112/75; PULSE 78; RESP 17; TEMP 36.9; O2SAT 100
[2020-08-08] MEDS: Omeprazole 20 MG CAPSULE.DR PO (06:51)
--- NOTE | 2020-08-08 06:54 | PC.NURSE ---
Patient slept through the night, compliant with his PO medication, VSS, will continue to monitor.
[2020-08-08 07:29] LABS: Glucose, Whole Blood 140 mg/dL (60-115)
[2020-08-08] MEDS: buPROPion HCl XL 300 MG TAB.ER.24H 600 MG PO (07:33)
[2020-08-08 07:36] VITALS: BP 109/61; PULSE 81
[2020-08-08] MEDS: Propranolol HCL LA 60 MG CAP.SA.24H 120 MG PO (07:36)
[2020-08-08] MEDS: busPIRone HCl 5 MG TABLET 15 MG PO ×2 (07:36→13:55)
[2020-08-08] MEDS: hydroCHLOROthiazide 25 MG TABLET PO (07:36)
[2020-08-08 07:42] VITALS: BP 109/61; PULSE 81
[2020-08-08] MEDS: lisinopriL 5 MG TABLET PO (07:42)
[2020-08-08 07:43] VITALS: BP 109/61; PULSE 81
[2020-08-08] MEDS: amLODIPine Besylate 10 MG TABLET PO (07:43)
[2020-08-08] MEDS: Benztropine Mesylate 1 MG TABLET PO (07:44)
[2020-08-08 08:02] VITALS: BP 109/61; PULSE 81; RESP 17; TEMP 36.3; O2SAT 98
[2020-08-08 08:07] LABS: Glucose Urine UA NEG (NEG); Leukocyte Esterase Urine TRACE (NEG); Nitrite Urine NEG (NEG); UACC Culture Trigger YES; Urine Blood NEG (NEG); Urine Ketones NEG (NEG); Urine Protein NEG (NEG-TRACE)
[2020-08-08 08:08] LABS: Appearance Urine CLEAR; Color Urine YELLOW
[2020-08-08 08:22] LABS: RBC Urine 0 /HPF (0); WBC Clumps Urine NOTED
[2020-08-08 08:27] LABS: Amphetamine Screen Urine Not Detected (Not Detect); Barbiturates, Urine Not Detected (Not Detect); Benzodiazepines Screen Urine Not Detected (Not Detect); Cannabinoid Screen Urine POSITIVE (Not Detect); Cocaine Screen Urine POSITIVE (Not Detect); Opiate Screen Urine Not Detected (Not Detect); Phencyclidine Screen Urine Not Detected (Not Detect)
--- NOTE | 2020-08-08 09:24 | PC.NURSE ---
PT HAS VOMITED X2 PROVIDER AWARE
[2020-08-08] MEDS: Ibuprofen 600 MG TABLET PO (09:59)
--- NOTE | 2020-08-08 12:17 | PC.NURSE ---
report received from prior RN patient wandering unit tells this rn about missing medications from [facility] will investigate. patient appears in no distress
[2020-08-08 17:49] LABS: Glucose, Whole Blood 88 mg/dL (60-115)
== END 2020-08-08 15:45 | disposition home or self-care (01) ==
PROVIDERS: Physician Assistant Medical; Emergency Provider Emergency Medicine
DX: F41.9 Anxiety disorder, unspecified (principal); F25.9 Schizoaffective disorder, unspecified; F43.12 Post-traumatic stress disorder, chronic; F31.9 Bipolar disorder, unspecified; I10 Essential (primary) hypertension; Z79.899 Other long term (current) drug therapy; Z87.820 Personal history of traumatic brain injury; Z59.0 Homelessness; Z20.822 Contact with and (suspected) exposure to COVID-19
CPT/HCPCS: 36415; 80053; 80307; 81001; 81003; 82077; 82947; 83690; 83735; 85025; 85610; 87086; 87635; 93005; 96372; 99285; Q0163

== ENCOUNTER 2020-08-24 17:30 | Emergency (ER) | payer MEDICAID, SELFPAY ==
--- NOTE | 2020-08-24 17:49 | ED_ITS ---
HPI - General Adult General Chief complaint: Psychiatric Symptoms Stated complaint: crisis Time Seen by Provider: 08/24/20 17:47 Source: patient and EMS Limitations: no limitations History of Present Illness HPI narrative: This is a 49-year-old male with history of schizoaffective disorder, who states that he decided he wanted to kill himself today. The patient was apparently about to inject a brown powder, had a syringe but a friend stopped and then called 911. [address] [place] bar but the patient denies having been at the bar or having been drinking today. Patient admits occasional cocaine use, never buys it. He denies alcohol use. He does smoke cigarettes. He denies any other substances. He denies any physical symptoms except chronic pain in his knees, intermittent left knee swelling, notes he has had his left knee drained in the past. Related Data Home Medications Medication Instructions Recorded Confirmed bupropion HCl 600 mg PO QAM 08/08/20 08/08/20 Previous Rx's Medication Instructions Recorded amlodipine 10 mg PO DAILY 30 Days #30 tab 07/21/20 benztropine 1 mg PO BID 30 Days #60 tab 07/21/20 buspirone 15 mg PO TID 30 Days #90 tab 07/21/20 clonidine HCl 0.2 mg PO BEDTIME 30 Days #30 tab 07/21/20 diphenhydramine HCl 50 mg PO BEDTIME 30 Days #30 cap 07/21/20 haloperidol 5 mg PO BID PRN 30 Days #28 tab 07/21/20 haloperidol decanoate [Haldol 100 mg IM Q2W 14 Days #1 ml 07/21/20 Decanoate] hydrochlorothiazide 25 mg PO DAILY 30 Days #30 tab 07/21/20 lisinopril 5 mg PO DAILY 30 Days #30 tab 07/21/20 melatonin 3 mg PO BEDTIME PRN 30 Days #30 tab 07/21/20 omeprazole 20 mg PO DAILY@0630 30 Days #30 cap 07/21/20 propranolol 120 mg PO DAILY 30 Days #30 cap 07/21/20 amlodipine 10 mg PO DAILY #30 tab 08/08/20 benztropine 1 mg PO BID #60 tab 08/08/20 bupropion HCl 600 mg PO QAM #30 tab 08/08/20 buspirone 15 mg PO TID #90 tab 08/08/20 clonidine HCl 0.2 mg PO BEDTIME #30 tab 08/08/20 diphenhydramine HCl 50 mg PO BEDTIME #30 cap 08/08/20 haloperidol 5 mg PO BID #60 tab 08/08/20 hydrochlorothiazide 25 mg PO DAILY #30 tab 08/08/20 hydrochlorothiazide 25 mg PO DAILY #60 cap 08/08/20 lisinopril 5 mg PO DAILY #30 tab 08/08/20 melatonin 3 mg PO BEDTIME PRN #30 tab 08/08/20 omeprazole 20 mg PO DAILY #30 cap 08/08/20 propranolol 120 mg PO DAILY #30 cap 08/08/20 Allergies Allergy/AdvReac Type Severity Reaction Status Date / Time No Known Allergies Allergy Verified 06/16/20 08:00 Review of Systems Review of Systems: Yes all other systems are reviewed and are negative Constitutional: Constitutional: Reports as per HPI and Denies fever(s) Eyes: Eyes: Reports as per HPI and Reports no additional eye complaints ENT: Reports system reviewed and no additional complaints, except as documented, Reports as per HPI, Denies nasal congestion, Denies nasal discharge and Denies sore throat Cardiovascular: Cardiovascular: Reports as per HPI, Denies chest pain and Denies dyspnea Respiratory: Respiratory: Reports as per HPI, Denies cough and Denies dyspnea Gastrointestinal: Gastrointestinal: Reports as per HPI, Denies abdominal pain, Denies diarrhea and Denies vomiting Genitourinary: Genitourinary: Reports as per HPI, Denies hematuria, Denies dysuria and Denies urinary frequency Musculoskeletal: Musculoskeletal: Reports arthralgias (Bilateral knees, left worse than right) and Denies numbness Integumentary/Breasts: Skin/Breast: Reports as per HPI and Denies rash Neurologic: Denies numbness and Denies Sensory deficit (Neuro) Psychiatric: Psychiatric: Reports as per HPI and Reports suicidal ideation Endocrine: Endocrine: Reports no additional endocrine complaints and Reports as per HPI Hematologic/Lymphatic: Hematologic/Lymphatic: Reports no additional hematologic/lymphatic complaints, Reports as per HPI and Reports other (No peripheral edema) [facility] Past Medical History Medical History Bipolar disorder Chronic post-traumatic stress disorder (PTSD) Coma Hallucinations HTN (hypertension) Schizoaffective disorder TBI (traumatic brain injury) Social History Social History Household Members: None Housing: Apartment Do you presently have visiting nurse or other home services: No Patient Tobacco Use Status: Current everyday Tobacco user Tobacco use type: Cigarette Cigarette Packs Per Day: 0 Cigarettes Per Day: 5 Years Smoked: 15 Second Hand Smoke Exposure: Yes Substance Use Type: Crack/Cocaine Advance Directives: No Advance Directives Information Provided: No service: No Sexual orientation: Don't Know Physical Exam Vital Signs: Vital Signs: Last Vital Signs Temp 98.1 F 08/24/20 17:50 Pulse 62 08/24/20 17:50 Resp 18 08/24/20 17:50 BP 131/94 H 08/24/20 17:50 Pulse Ox 98 08/24/20 17:50 Body Mass Index 34.2 Const: General: cooperative, no acute distress and alert Orientation/consciousness: patient oriented x3 HENMT: Head: Yes normal to inspection Eyes: General: appearance normal, both eyes and all related structures Eyelids: Yes eyelids normal Conjunctivae: conjunctivae normal Pupils: Equal, round and reactive pupils present Neck: Neck: Yes normal visual inspection and Yes supple Chest: Chest palpation & inspection: normal inspection of the chest Resp: Effort & Inspection: normal respiratory effort Auscultation: clear to auscultation bilaterally Cardio: Rate: regular rate Rhythm: regular rhythm Heart sounds: S1 normal heart sound present, S2 normal heart sound present, no gallops, no murmurs and no rubs GI: Palpation (GI): Soft to palpation, nontender and Other GI palpation findings present (Non-distended) Auscultation: normal bowel sounds Skin: General skin exam: no rashes or lesions noted Neuro: General: patient oriented x3, no focal motor deficits and CN's II-XI intact bilaterally Cranial nerves: Yes Equal, round and reactive pupils p resent Cognition (Neuro): normal cognition Motor exam (neuro): 5/5 motor strength present throughout Sensory Exam: No Sensory deficit (Neuro) Extrem: General: Yes normal to inspection and Yes no pedal edema Psych: Appearance: grossly normal Affect: normal affect Medical Decision Making MDM Narrative Medical decision making narrative: Patient brought in by ambulance, from the 20 minutes, with suicide ideation, with a plan to inject himself with a brown powder that he said would kill him immediately. Patient without significant physical complaints. Patient has history of hypertension, blood pressure mildly elevated. Patient calm and cooperative on exam. Patient medically clear for psychiatric evaluation Lab Data Lab results reviewed: Yes I reviewed the patient's lab results. Result diagrams: 08/24/20 18:19 08/24/20 18:19 Labs: Lab Results 08/24/20 08/24/20 08/24/20 Range/Units 18:19 18:19 18:19 WBC 4.9 (4.8-10.8) X10*3/uL RBC 4.13 L (4.60-5.80) X10*6/uL Hgb 13.6 L (14.0-18.0) g/dl Hct 40.8 L (42-52) % MCV 98.8 H (80-98) fL MCH 32.9 (27.0-33.0) pg MCHC 33.3 (31.0-36.0) g/dl RDW 12.4 (11.0-16.0) % Plt Count 179 (160-400) X10*3/uL MPV 10.1 (9.4-12.4) fL Immature Gran % (Auto) 0.0 (0.0-0.4) % Neut % (Auto) 59.5 (45-73) % Lymph % (Auto) 28.1 (20-40) % [place] % (Auto) 9.7 (2-11) % Eos % (Auto) 2.3 (0-4) % Baso % (Auto) 0.4 (0-2) % Lymph # (Auto) 1.4 (1.2-4.9) X10*3/uL [place] # (Auto) 0.5 (0.1-1.2) X10*3/uL Eos # (Auto) 0.1 (0.0-0.4) X10*3/uL Baso # (Auto) 0.0 (0.0-0.2) X10*3/uL Abs Immat Gran (auto) 0.00 (0.00-0.03) X10*3/uL Absolute Neuts (auto) 2.9 (2.0-8.3) X10*3/uL Absolute Nucleated RBC 0.000 (0.0-0.012) X10*3/uL Nucleated RBC % (auto) 0.0 (0.0-0.2) /100WBC Sodium 141 (135-145) mmol/L Potassium 4.0 (3.3-5.1) mmol/L Chloride 102 (96-108) mmol/L Carbon Dioxide 30 H (22-29) mmol/L Anion Gap 13 (12-20) BUN 14 (9-16) mg/dL Creatinine 1.25 (0.5-1.4) mg/dL Estim Creat Clear Calc 94.3 Estimated GFR > 60 Random Glucose 114 (60-115) mg/dL Calcium 9.9 (8.4-10.2) mg/dL Total Bilirubin 0.6 (0.0-1.0) mg/dL AST 30 (5-37) U/L ALT 23 (0-40) U/L Alkaline Phosphatase 75 (39-117) U/L Total Protein 7.6 (6.5-8.0) g/dL Albumin 4.4 (3.5-5.0) g/dL Ethyl Alcohol < 10 mg/dL COVID-19 ([facility]ABIAN) (Negative) COVID-19 Clin Com 08/24/20 Range/Units 19:27 WBC (4.8-10.8) X10*3/uL RBC (4.60-5.80) X10*6/uL Hgb (14.0-18.0) g/dl Hct (42-52) % MCV (80-98) fL MCH (27.0-33.0) pg MCHC (31.0-36.0) g/dl RDW (11.0-16.0) % Plt Count (160-400) X10*3/uL MPV (9.4-12.4) fL Immature Gran % (Auto) (0.0-0.4) % Neut % (Auto) (45-73) % Lymph % (Auto) (20-40) % [place] % (Auto) (2-11) % Eos % (Auto) (0-4) % Baso % (Auto) (0-2) % Lymph # (Auto) (1.2-4.9) X10*3/uL [place] # (Auto) (0.1-1.2) X10*3/uL Eos # (Auto) (0.0-0.4) X10*3/uL Baso # (Auto) (0.0-0.2) X10*3/uL Abs Immat Gran (auto) (0.00-0.03) X10*3/uL Absolute Neuts (auto) (2.0-8.3) X10*3/uL Absolute Nucleated RBC (0.0-0.012) X10*3/uL Nucleated RBC % (auto) (0.0-0.2) /100WBC Sodium (135-145) mmol/L Potassium (3.3-5.1) mmol/L Chloride (96-108) mmol/L Carbon Dioxide (22-29) mmol/L Anion Gap (12-20) BUN (9-16) mg/dL Creatinine (0.5-1.4) mg/dL Estim Creat Clear Calc Estimated GFR Random Glucose (60-115) mg/dL Calcium (8.4-10.2) mg/dL Total Bilirubin (0.0-1.0) mg/dL AST (5-37) U/L ALT (0-40) U/L Alkaline Phosphatase (39-117) U/L Total Protein (6.5-8.0) g/dL Albumin (3.5-5.0) g/dL Ethyl Alcohol mg/dL COVID-19 ([facility]ABIAN) Negative (Negative) COVID-19 Clin Com See Note Discharge Plan Discharge Clinical Impression: Schizoaffective disorder, Hypertension, Suicidal ideation Patient Disposition: Still a Patient Prescriptions: No Action haloperidol 5 mg Tablet 5 mg PO BID PRN (Reason: agitation) 30 Days Qty: 28 RF: 0 diphenhydramine HCl 50 mg capsule 50 mg PO BEDTIME 30 Days Qty: 30 RF: 0 melatonin 3 mg Tablet 3 mg PO BEDTIME PRN (Reason: insomnia) 30 Days Qty: 30 RF: 0 clonidine HCl 0.2 mg Tablet 0.2 mg PO BEDTIME 30 Days Qty: 30 RF: 0 amlodipine 10 mg Tablet 10 mg PO DAILY 30 Days Qty: 30 RF: 0 benztropine 1 mg Tablet 1 mg PO BID 30 Days Qty: 60 RF: 0 omeprazole 20 mg Capsule,Delayed Release(Dr/Ec) 20 mg PO DAILY@0630 30 Days Qty: 30 RF: 0 lisinopril 5 mg Tablet 5 mg PO DAILY 30 Days Qty: 30 RF: 0 hydrochlorothiazide 25 mg Tablet 25 mg PO DAILY 30 Days Qty: 30 RF: 0 buspirone 15 mg Tablet 15 mg PO TID 30 Days Qty: 90 RF: 0 propranolol 120 mg Capsule,Extended Release 24hr 120 mg PO DAILY 30 Days Qty: 30 RF: 0 haloperidol decanoate [Haldol Decanoate] 100 mg/mL solution 100 mg IM Q2W 14 Days Qty: 1 RF: 1 bupropion HCl 300 mg tablet extended release 24 hr 600 mg PO QAM RF: 0 amlodipine 10 mg tablet 10 mg PO DAILY Qty: 30 RF: 0 benztropine 1 mg tablet 1 mg PO BID Qty: 60 RF: 0 bupropion HCl 300 mg tablet extended release 24 hr 600 mg PO QAM Qty: 30 RF: 0 buspirone 15 mg tablet 15 mg PO TID Qty: 90 RF: 0 clonidine HCl 0.2 mg tablet 0.2 mg PO BEDTIME Qty: 30 RF: 0 diphenhydramine HCl 50 mg capsule 50 mg PO BEDTIME Qty: 30 RF: 0 hydrochlorothiazide 12.5 mg capsule 25 mg PO DAILY Qty: 60 RF: 0 hydrochlorothiazide 25 mg tablet 25 mg PO DAILY Qty: 30 RF: 0 lisinopril 5 mg tablet 5 mg PO DAILY Qty: 30 RF: 0 melatonin 3 mg tablet 3 mg PO BEDTIME PRN (Reason: insomnia) Qty: 30 RF: 0 omeprazole 20 mg capsule,delayed release(DR/EC) 20 mg PO DAILY Qty: 30 RF: 0 propranolol 120 mg capsule,extended release 24 hr 120 mg PO DAILY Qty: 30 RF: 0 haloperidol 5 mg tablet 5 mg PO BID Qty: 60 RF: 0
[2020-08-24 17:50] VITALS: BP 131/94; PULSE 62; RESP 18; TEMP 36.7; O2SAT 98; BMI 34.2
[2020-08-24 18:22] LABS: MANUAL DIFF FLAG NO
[2020-08-24 18:23] LABS: Basophils Percent Auto 0.4 % (0-2); Eosinophils Absolute Auto 0.1 X10*3/uL (0.0-0.4); Eosinophils Percent Auto 2.3 % (0-4); Hematocrit 40.8 % (42-52); Hemoglobin 13.6 g/dl (14.0-18.0); Lymphocytes Absolute Auto 1.4 X10*3/uL (1.2-4.9); Lymphocytes Percent Auto 28.1 % (20-40); Mean Corpuscular HGB Conc 33.3 g/dl (31.0-36.0); Mean Corpuscular Hemoglobin 32.9 pg (27.0-33.0); Mean Corpuscular Volume 98.8 fL (80-98); Mean Platelet Volume 10.1 fL (9.4-12.4); Monocytes Absolute Auto 0.5 X10*3/uL (0.1-1.2); Monocytes Percent Auto 9.7 % (2-11); Neutrophils Absolute Auto 2.9 X10*3/uL (2.0-8.3); Neutrophils Percent Auto 59.5 % (45-73); Platelet Count 179 X10*3/uL (160-400); Red Blood Count 4.13 X10*6/uL (4.60-5.80); Red Cell Distribution Width 12.4 % (11.0-16.0); White Blood Count 4.9 X10*3/uL (4.8-10.8)
[2020-08-24 18:55] LABS: Alanine Aminotransferase 23 U/L (0-40); Albumin Level 4.4 g/dL (3.5-5.0); Alkaline Phosphatase 75 U/L (39-117); Anion Gap 13 (12-20); Aspartate Amino Transferase 30 U/L (5-37); Bilirubin Total 0.6 mg/dL (0.0-1.0); Blood Urea Nitrogen 14 mg/dL (9-16); Calcium 9.9 mg/dL (8.4-10.2); Carbon Dioxide 30 mmol/L (22-29); Chloride 102 mmol/L (96-108); Creatinine Clr Calc Pharmacy 94.3; Estimated Glomerular Filt Rate > 60; Glucose Random 114 mg/dL (60-115); Sodium 141 mmol/L (135-145); Total Protein 7.6 g/dL (6.5-8.0)
[2020-08-24 18:56] LABS: Ethanol < 10 mg/dL
[2020-08-24 20:12] LABS: COVID-19 Test Negative (Negative)
[2020-08-24 21:30] VITALS: BP 140/87; PULSE 106
[2020-08-24] MEDS: amLODIPine Besylate 10 MG TABLET PO (21:30)
[2020-08-24 21:38] VITALS: BP 140/87; PULSE 106; RESP 16; O2SAT 98
--- NOTE | 2020-08-24 23:29 | PC.NURSE ---
Patient in bed appears sleeping, no distress observed/reported, called [facility] to confirm receipt of referral, per Rafael Larsen and Katya no referral was sent, verbal on phone referral was completed with Katya Rafael piercing specialist, no ETA at this time, Med rec completed/provider notified/pending MAR update, will continue to monitor.
--- NOTE | 2020-08-25 05:46 | PC.NURSE ---
Patient slept through the night, no distress observed/reported, pending [facility], [facility] referral completed/confirmed/awaiting [facility] assessment in the morning, med rec completed, will continue to monitor.
[2020-08-25] MEDS: Omeprazole 20 MG CAPSULE.DR PO (06:16)
[2020-08-25 06:26] VITALS: BP 135/88; PULSE 93; RESP 18; TEMP 36.9; O2SAT 98
[2020-08-25 07:02] LABS: Amphetamine Screen Urine Not Detected (Not Detect); Barbiturates, Urine Not Detected (Not Detect); Benzodiazepines Screen Urine Not Detected (Not Detect); Cannabinoid Screen Urine POSITIVE (Not Detect); Cocaine Screen Urine POSITIVE (Not Detect); Opiate Screen Urine POSITIVE (Not Detect); Phencyclidine Screen Urine Not Detected (Not Detect)
--- NOTE | 2020-08-25 07:07 | PC.NURSE ---
patient appears to remain at rest at present with even unlabored breaths, patient appears in no distress
[2020-08-25 11:20] VITALS: BP 135/88; PULSE 93
[2020-08-25] MEDS: busPIRone HCl 5 MG TABLET 15 MG PO ×3 (11:20→20:53)
[2020-08-25] MEDS: Propranolol HCL LA 60 MG CAP.SA.24H 120 MG PO (11:20)
[2020-08-25 11:21] VITALS: PULSE 93
[2020-08-25] MEDS: lisinopriL 5 MG TABLET PO (11:21)
[2020-08-25 11:23] VITALS: BP 135/88; PULSE 93
[2020-08-25] MEDS: Benztropine Mesylate 1 MG TABLET PO ×2 (11:23→20:53)
[2020-08-25] MEDS: amLODIPine Besylate 10 MG TABLET PO (11:23)
[2020-08-25] MEDS: hydroCHLOROthiazide 25 MG TABLET PO (11:23)
[2020-08-25] MEDS: buPROPion HCl XL 300 MG TAB.ER.24H 600 MG PO (13:50)
--- NOTE | 2020-08-25 17:04 | MHC.CARE ---
CARE Team meets with pt for crisis screening, as he has been waiting for [facility] crisis. Pt is seeking respite admission, stating he needs help getting my life together. Pt states that he has been living on the streets and using cocaine. He reports that he experimented with heroin for the first time yesterday, sniffing half a bag. He reports feeling hopeless and states that he was thinking about intentionally overdosing on IV heroin, but states that he does not know how to inject heroin. Pt is seeking respite, as this has been helpful in the past, and recent inpt admissions have not been helpful. Pt needs wrap around services to address mental health, substance use, brain injury and housing. CARE Team reaches out to [facility], they do not have any beds today, but they may have one tomorrow. Plan is for pt to be assessed by [facility], as they also have respite beds. If [facility] does not place pt in respite tonight or tomorrow, CARE Team will support pt in the morning with making a plan. Lenka ALVAREZ in agreement with this plan.
--- NOTE | 2020-08-25 18:00 | MHC.RECOVSUP ---
? Reason for consult Recovery Support o Current location: [facility] o Identified substance use concern: Cocain - Support ? Intervention: o Community resources provided o Harm reduction discussion ? Plan: o Patient awaiting crisis evaluation o Patient to follow up with [facility] after discharge ? Additional information: Patient was was open to recovery talk.. we talk Harm reduction.. and pathways.. he is aware of [facility] and stated that he would go again..
[2020-08-25] MEDS: Ibuprofen 400 MG TABLET PO (19:06)
[2020-08-25 20:53] VITALS: BP 132/82; PULSE 76
[2020-08-25] MEDS: diphenhydrAMINE HCL 25 MG TABLET 50 MG PO (20:53)
[2020-08-25] MEDS: HaloperidoL 5 MG TABLET PO (20:53)
[2020-08-25] MEDS: cloNIDine HCL 0.2 MG TABLET PO (20:53)
[2020-08-25] MEDS: Melatonin 3 MG TABLET PO (20:53)
--- NOTE | 2020-08-26 | ECG_ITS ---
Test Reason : MEDCLEARANCE Blood Pressure : / mmHG Vent. Rate : 072 BPM Atrial Rate : 072 BPM P-R Int : 140 ms QRS Dur : 076 ms QT Int : 388 ms P-R-T Axes : 048 -24 019 degrees QTc Int : 424 ms Normal sinus rhythm Normal ECG When compared with ECG of 07-AUG-2020 10:12, QT has shortened Referred By: Margaret Miranda Electronically Signed By:Joel Jimenez
--- NOTE | 2020-08-26 01:12 | PC.NURSE ---
Patient just evaluated by N, disposition is section 12 inpatient bed search, patient and provider both aware.
[2020-08-26 01:25] VITALS: BP 107/67; PULSE 80; RESP 17; TEMP 36.6; O2SAT 100
[2020-08-26] MEDS: Omeprazole 20 MG CAPSULE.DR PO (05:56)
--- NOTE | 2020-08-26 06:05 | PC.NURSE ---
Patient slept through the night, patient was very enagegd during [facility] assessment, patient's disposition section 12 inpatient bed search, behavior calm and cooperative, medication compliant, VSS, appetite adequate, elimination, no distress observed/reported, will continue to monitor.
--- NOTE | 2020-08-26 07:08 | PC.NURSE ---
patient remains at rest at present appears in no distress, repirations are even and unlabored.
[2020-08-26 08:10] VITALS: BP 107/67; PULSE 80
[2020-08-26] MEDS: Propranolol HCL LA 60 MG CAP.SA.24H 120 MG PO (08:10)
[2020-08-26] MEDS: Benztropine Mesylate 1 MG TABLET PO ×2 (08:10→19:55)
[2020-08-26 08:11] VITALS: BP 107/67; PULSE 80
[2020-08-26] MEDS: lisinopriL 5 MG TABLET PO (08:11)
[2020-08-26] MEDS: amLODIPine Besylate 10 MG TABLET PO (08:11)
[2020-08-26] MEDS: busPIRone HCl 5 MG TABLET 15 MG PO ×3 (08:11→19:55)
[2020-08-26] MEDS: buPROPion HCl XL 300 MG TAB.ER.24H 600 MG PO (08:11)
[2020-08-26] MEDS: hydroCHLOROthiazide 25 MG TABLET PO (08:12)
[2020-08-26 18:49] VITALS: BP 120/79; PULSE 79; RESP 16; TEMP 36.3; O2SAT 99
[2020-08-26] MEDS: HaloperidoL 5 MG TABLET PO (19:55)
[2020-08-26] MEDS: buPROPion HCl XL 300 MG TAB.ER.24H PO (19:55)
[2020-08-26 22:49] VITALS: BP 128/71; PULSE 84
[2020-08-26] MEDS: cloNIDine HCL 0.2 MG TABLET PO (22:49)
[2020-08-26] MEDS: diphenhydrAMINE HCL 25 MG TABLET 50 MG PO (22:49)
[2020-08-27 01:02] VITALS: BP 128/71; PULSE 84; RESP 16; TEMP 37.2; O2SAT 100
--- NOTE | 2020-08-27 06:45 | PC.NURSE ---
Patient slept through the night, no distress observed/reported, VSS, compliant with medication, in good behavioral control, patient admitted to [facility] was supported go at 0030 but due to issues at [place] admission is postpone to day shift, usually [facility] doesn't call we have to call them to get ETA, once ETA is obtained Ambulance can be booked, d/c paper work ready, patient is aware, will continue to monitor.
[2020-08-27 08:09] VITALS: BP 128/71
[2020-08-27] MEDS: Propranolol HCL LA 60 MG CAP.SA.24H 120 MG PO (08:09)
[2020-08-27] MEDS: buPROPion HCl XL 300 MG TAB.ER.24H 600 MG PO (08:09)
[2020-08-27] MEDS: hydroCHLOROthiazide 25 MG TABLET PO (08:09)
[2020-08-27 08:10] VITALS: BP 112/82; BP 128/71; PULSE 80; RESP 15; O2SAT 99
[2020-08-27] MEDS: busPIRone HCl 5 MG TABLET 15 MG PO (08:10)
[2020-08-27] MEDS: lisinopriL 5 MG TABLET PO (08:10)
[2020-08-27] MEDS: amLODIPine Besylate 10 MG TABLET PO (08:10)
[2020-08-27] MEDS: Benztropine Mesylate 1 MG TABLET PO (08:10)
--- NOTE | 2020-08-27 08:13 | PC.NURSE ---
report taken from german rn pt up for breakfast, no complaints. pleasant w this rn. requesting morning medications, taken without issue. nurse to nurse report given to [facility] lorene medellin. awaiting transport. sharan. gorge.
[2020-08-27] MEDS: Omeprazole 20 MG CAPSULE.DR PO (09:34)
[2020-08-27 10:09] VITALS: BP 128/71
[2020-08-27] MEDS: Propranolol HCL 20 MG TABLET 120 MG PO (10:09)
[2020-08-27] MEDS: buPROPion HCl XL 300 MG TAB.ER.24H PO (10:15)
--- NOTE | 2020-08-27 10:16 | PC.NURSE ---
pt had one episoide vomiting, given reordered wellbutrin and propanolol d/t whole pill appearing in emesis.
== END 2020-08-27 10:18 ==
PROVIDERS: Emergency Provider Emergency Medicine; PCP Nurse Practitioner Family
DX: F25.9 Schizoaffective disorder, unspecified (principal); R45.851 Suicidal ideations; I10 Essential (primary) hypertension; Z79.899 Other long term (current) drug therapy; Z20.822 Contact with and (suspected) exposure to COVID-19
CPT/HCPCS: 36415; 80053; 80307; 82077; 85025; 87635; 93005; 99285; Q0163

== ENCOUNTER 2020-12-01 21:48 | Emergency (ER) | payer MEDICAID, SELFPAY ==
--- NOTE | ~2020-12-01 | XR_ITS ---
EXAMINATION: XR CHEST CLINICAL INFORMATION: Chest pain COMPARISON: None TECHNIQUE: Frontal view of the chest was obtained. FINDINGS: No significant abnormality is noted involving the heart, lungs, mediastinum, bony thorax or soft tissues. XR/XR chest 1V IMPRESSION: Unremarkable chest examination.
[2020-12-01 22:02] VITALS: BP 149/86; PULSE 76; RESP 16; TEMP 36.8; O2SAT 99; BMI 28.5
[2020-12-01 22:05] VITALS: BP 170/122; PULSE 94; O2SAT 94
--- NOTE | 2020-12-01 22:09 | ECG_ITS ---
Test Reason : CP Blood Pressure : / mmHG Vent. Rate : 078 BPM Atrial Rate : 078 BPM P-R Int : 138 ms QRS Dur : 074 ms QT Int : 402 ms P-R-T Axes : 068 -14 021 degrees QTc Int : 458 ms Normal sinus rhythm Left axis deviation Otherwise normal ECG No significant changes seen Referred By: Generic ED Physician Electronically Signed By:KERRY GRADY MD
--- NOTE | 2020-12-01 22:21 | PC.NURSE ---
CXR at bedside. Plan for labs and EKG.
[2020-12-01 22:36] LABS: MANUAL DIFF FLAG NO
[2020-12-01 22:38] LABS: Basophils Percent Auto 0.5 % (0-2); Eosinophils Absolute Auto 0.1 X10*3/uL (0.0-0.4); Eosinophils Percent Auto 1.2 % (0-4); Hematocrit 36.1 % (42-52); Hemoglobin 12.2 g/dl (14.0-18.0); Imm Gran Abs Auto 0.02 X10*3/uL (0.00-0.03); Imm Gran Pct Auto 0.4 % (0.0-0.4); Lymphocytes Absolute Auto 1.6 X10*3/uL (1.2-4.9); Lymphocytes Percent Auto 27.6 % (20-40); Mean Corpuscular HGB Conc 33.8 g/dl (31.0-36.0); Mean Corpuscular Hemoglobin 32.9 pg (27.0-33.0); Mean Corpuscular Volume 97.3 fL (80-98); Mean Platelet Volume 9.4 fL (9.4-12.4); Monocytes Absolute Auto 0.6 X10*3/uL (0.1-1.2); Monocytes Percent Auto 10.4 % (2-11); Neutrophils Absolute Auto 3.4 X10*3/uL (2.0-8.3); Neutrophils Percent Auto 59.9 % (45-73); Platelet Count 203 X10*3/uL (160-400); Red Blood Count 3.71 X10*6/uL (4.60-5.80); Red Cell Distribution Width 13.1 % (11.0-16.0); White Blood Count 5.7 X10*3/uL (4.8-10.8)
[2020-12-01 22:56] LABS: Anion Gap 11 (12-20); Blood Urea Nitrogen 28 mg/dL (9-16); Calcium 9.3 mg/dL (8.4-10.2); Carbon Dioxide 30 mmol/L (22-29); Chloride 103 mmol/L (96-108); Creatinine Clr Calc Pharmacy 84.2; Estimated Glomerular Filt Rate > 60; Glucose Random 87 mg/dL (60-115); Potassium 4.6 mmol/L (3.3-5.1); Sodium 139 mmol/L (135-145)
[2020-12-01 22:57] LABS: Troponin-I High Sensitivity 13.3 ng/L (<3.5-35.0)
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
--- NOTE | 2020-12-01 23:39 | PC.NURSE ---
at bedside for primary eval.
--- NOTE | 2020-12-01 23:49 | PC.NURSE ---
at bedside for primary eval. Pt reporting hallucinations and +SI. 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 Pt states he has been off his meds for 2-3 weeks.
[2020-12-02 00:07] VITALS: BP 125/86; PULSE 74; RESP 14; O2SAT 100
[2020-12-02 00:18] LABS: Ethanol < 10 mg/dL
[2020-12-02 00:23] LABS: Appearance Urine CLEAR; Color Urine YELLOW; Glucose Urine UA NEG (NEG); Leukocyte Esterase Urine NEG (NEG); Nitrite Urine NEG (NEG); Urine Blood NEG (NEG); Urine Ketones NEG (NEG); Urine Protein NEG (NEG-TRACE)
--- NOTE | 2020-12-02 00:23 | PC.NURSE ---
Sitter at bedside for 1:1. [facility] fax completed by WILI Rivera.
[2020-12-02 00:25] LABS: COVID-19 Test Negative (Negative); IDNOW Serial# 9DD0AD1C
[2020-12-02 00:39] LABS: Amphetamine Screen Urine Not Detected (Not Detect); Barbiturates, Urine Not Detected (Not Detect); Benzodiazepines Screen Urine Not Detected (Not Detect); Cannabinoid Screen Urine POSITIVE (Not Detect); Cocaine Screen Urine POSITIVE (Not Detect); Fentanyl, urine POSITIVE (Not Detect); Opiate Screen Urine Not Detected (Not Detect); Phencyclidine Screen Urine Not Detected (Not Detect)
[2020-12-02 01:49] VITALS: BP 133/66; PULSE 82; RESP 16; O2SAT 100
[2020-12-02 02:18] LABS: Troponin-I High Sensitivity 13.1 ng/L (<3.5-35.0)
--- NOTE | 2020-12-02 03:23 | PC.NURSE ---
requesting Section 12. Plan to transfer pt into BH pod now that he is medically cleared.
--- NOTE | 2020-12-02 03:50 | PC.NURSE ---
PT transferred to [facility] via wheelchair. PT is CAOx4. Calm and cooperative. Report given to Vinnie RASHEED.
[2020-12-02 05:47] VITALS: BP 135/63; PULSE 52; RESP 16; TEMP 36.6; O2SAT 99
--- NOTE | 2020-12-02 05:51 | PC.NURSE ---
Patient just got transferred from main ED, patient was presented for chest pain but when cleared medically patient reported suicidality, N referral completed and confirmed patient will be assessed in the morning, patient currently sleeping, will continue to monitor.
--- NOTE | 2020-12-02 07:07 | PC.NURSE ---
patient appears to remain asleep at present, respirations are even and unlabored patient appears in no distress
[2020-12-02] MEDS: Omeprazole 20 MG CAPSULE.DR PO (11:41)
[2020-12-02 11:42] VITALS: BP 135/63; PULSE 52
[2020-12-02] MEDS: lisinopriL 5 MG TABLET PO (11:42)
[2020-12-02] MEDS: Benztropine Mesylate 1 MG TABLET PO ×2 (11:42→20:54)
[2020-12-02] MEDS: amLODIPine Besylate 10 MG TABLET PO (11:42)
[2020-12-02] MEDS: HaloperidoL 5 MG TABLET 10 MG PO ×2 (11:43→20:54)
[2020-12-02] MEDS: buPROPion HCl XL 300 MG TAB.ER.24H PO ×2 (13:03→20:59)
[2020-12-02] MEDS: busPIRone HCl 5 MG TABLET 15 MG PO ×2 (15:23→20:54)
[2020-12-02] MEDS: guaiFENesin DM 600/30 1 TAB TAB.ER.12H 2 TAB PO ×2 (16:36→20:59)
--- NOTE | 2020-12-02 17:06 | PC.NURSE ---
patient reports hx of being on more buproprion daily however considering nearly 3 weeks noncompliance probably not best to increase without titration.
[2020-12-02] MEDS: Melatonin 3 MG TABLET 6 MG PO (20:54)
[2020-12-02] MEDS: Cyclobenzaprine HCl 10 MG TABLET PO (20:55)
[2020-12-02 23:58] VITALS: BP 134/83; PULSE 96; RESP 18; TEMP 37.3; O2SAT 98
[2020-12-03] MEDS: Omeprazole 20 MG CAPSULE.DR PO (06:18)
--- NOTE | 2020-12-03 06:19 | PC.NURSE ---
Patient slept through the night, no distress observed/reported, behavior appropriate, medication compliant, poor ADL care, disposition per [facility] is section 12 inpatient bed search, will continue to monitor.
--- NOTE | 2020-12-03 07:10 | PC.NURSE ---
patient appears to remain at rest at present respirations even and unlabored, patient appears in no distress
[2020-12-03 08:40] VITALS: BP 134/83; PULSE 96
[2020-12-03] MEDS: lisinopriL 5 MG TABLET PO (08:40)
[2020-12-03] MEDS: guaiFENesin DM 600/30 1 TAB TAB.ER.12H 2 TAB PO ×2 (08:40→22:01)
[2020-12-03] MEDS: busPIRone HCl 5 MG TABLET 15 MG PO ×3 (08:40→21:43)
[2020-12-03 08:41] VITALS: BP 134/83; PULSE 96
[2020-12-03] MEDS: Benztropine Mesylate 1 MG TABLET PO ×2 (08:41→21:43)
[2020-12-03] MEDS: amLODIPine Besylate 10 MG TABLET PO (08:41)
[2020-12-03 09:00] VITALS: BP 157/106; RESP 103; TEMP 37; O2SAT 95
[2020-12-03] MEDS: Ibuprofen 600 MG TABLET PO (09:06)
[2020-12-03] MEDS: buPROPion HCl XL 300 MG TAB.ER.24H 600 MG PO (10:06)
[2020-12-03] MEDS: Benzonatate 100 MG CAPSULE 200 MG PO (10:20)
[2020-12-03] MEDS: buPROPion HCl XL 300 MG TAB.ER.24H PO ×2 (13:46→15:48)
[2020-12-03] MEDS: Ondansetron ODT 4 MG TAB.RAPDIS TRANSLINGU (14:26)
--- NOTE | 2020-12-03 14:29 | PC.NURSE ---
pt vomited following eating lunch and his 1300 administration of Welbutrin, pt reports he saw the pill come up. pt informed he cannot get another dose as there is no way to know how much of the medication was absorbed into his system prior to vomiting. pt irritable regarding not able to get another Welbutrin, reports he wants d/c., pt is a section 12 and informed of this status. pt irritable, returned to his room. t/w will touch base with JIMMIE
--- NOTE | 2020-12-03 14:38 | PC.NURSE ---
spoke wtmarjorie Guerrero at [facility]. informed her that the pt wants to be d/c or sent to [facility] in [place]. Yolanda reported she is going to talk with her supervisor framing mill regarding a re-evaluation as pt is a section 12 and will inform t/w of their decision.
[2020-12-03 15:06] VITALS: BP 109/88; PULSE 102; RESP 16; TEMP 37.1; O2SAT 97
--- NOTE | 2020-12-03 18:13 | PC.NURSE ---
Pt currently in behavioral control. Calm and cooperative, no complaints at this time. Continues to be a section 12 bed search.
[2020-12-03] MEDS: HaloperidoL 5 MG TABLET 10 MG PO (21:43)
[2020-12-03] MEDS: Melatonin 3 MG TABLET 6 MG PO (21:43)
[2020-12-03 23:33] VITALS: RESP 16
[2020-12-04 00:15] VITALS: RESP 16
[2020-12-04 00:30] VITALS: RESP 14
[2020-12-04 05:15] VITALS: BP 128/84; PULSE 88; RESP 16; TEMP 36.6; O2SAT 98
[2020-12-04] MEDS: Omeprazole 20 MG CAPSULE.DR PO (05:32)
--- NOTE | 2020-12-04 05:34 | PC.NURSE ---
Patient slept through the night, no distress observed/reported, complaint with medication, behavior appropriate, disposition is section 12 inpatient bed search, VSS, will continue to monitor.
[2020-12-04 07:48] VITALS: BP 138/91; PULSE 87
[2020-12-04] MEDS: busPIRone HCl 5 MG TABLET 15 MG PO (07:48)
[2020-12-04] MEDS: lisinopriL 5 MG TABLET PO (07:48)
[2020-12-04] MEDS: Benztropine Mesylate 1 MG TABLET PO (07:48)
[2020-12-04] MEDS: HaloperidoL 5 MG TABLET 10 MG PO (07:48)
[2020-12-04] MEDS: buPROPion HCl XL 300 MG TAB.ER.24H 600 MG PO (07:48)
[2020-12-04 07:50] VITALS: BP 138/91; PULSE 87
[2020-12-04] MEDS: amLODIPine Besylate 10 MG TABLET PO (07:50)
[2020-12-04] MEDS: guaiFENesin DM 600/30 1 TAB TAB.ER.12H 2 TAB PO (07:50)
[2020-12-04] MEDS: LORazepam 1 MG TABLET PO (10:21)
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
--- NOTE | 2020-12-04 15:27 | MHC.CARE ---
CARE Team meets with pt at pt's request. He was seen by JIMMIE lar[facility]/ [facility] for inpt bedsearch. Pt is very well known to CARE Team social worker psychiatric through previous community work together and through ED interventions in the past. Pt's affect is bright and his mood is upbeat. Pt states that he would like to go to [facility] in [place], [place], where pt has done well in the past. Pt states that he is not longer suicidal and no longer is having AH. Pt attributes this to getting his IM of seroquel a couple of days ago. Pt no longer meets IPOC, and is no longer seeking inpt admission. CARE Team reaches out to [facility], who report that pt has an open invitation to return there, however, they cannot accommodate him until 12/07 when a current resident who has a stay away order against pt leaves. Pt states that he has a place to stay until he can get into respite, so CARE Team provides him with a ride to [place], and coordinates with Dr. 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 Case discussed with Dr. Kuhn and Slade Keller, who agree with plan.
== END 2020-12-04 12:26 | disposition home or self-care (01) ==
PROVIDERS: Emergency Provider Student in an Organized Health Care Education/Training Program; PCP Nurse Practitioner Family
DX: F25.9 Schizoaffective disorder, unspecified (principal); R45.851 Suicidal ideations; F43.12 Post-traumatic stress disorder, chronic; R07.89 Other chest pain; R05.9 Cough, unspecified; M79.602 Pain in left arm; F14.90 Cocaine use, unspecified, uncomplicated; F17.210 Nicotine dependence, cigarettes, uncomplicated; Z87.820 Personal history of traumatic brain injury; Z20.822 Contact with and (suspected) exposure to COVID-19; Z91.14 Patient's other noncompliance with medication regimen; Z79.899 Other long term (current) drug therapy; Z71.6 Tobacco abuse counseling
CPT/HCPCS: 36415; 71045; 80048; 80307; 81003; 82077; 84484; 85025; 87635; 93005; 96372; 99285

== ENCOUNTER 2020-12-23 06:45 | Emergency (ER) | payer MEDICAID, SELFPAY ==
--- NOTE | 2020-12-23 07:07 | ED.PSYCH ---
HPI - Psych General Chief Complaint: Psychiatric Symptoms <Jody Moreno MD - Last Filed: 12/23/20 07:12> Stated Complaint: l knee pain s/p fall/SI/hallucinations <Jody Moreno MD - Last Filed: 12/23/20 07:12> Time Seen by Provider: 12/23/20 07:05 <Jody Moreno MD - Last Filed: 12/23/20 07:12> Source: patient <Jody Moreno MD - Last Filed: 12/23/20 07:12> Mode of arrival: ambulatory <Jody Moreno MD - Last Filed: 12/23/20 07:12> Limitations: no limitations <Jody Moreno MD - Last Filed: 12/23/20 07:12> History of Present Illness HPI Narrative: 50-year-old male came in by ambulance for evaluation of hallucination. 50-year-old male admit to using cocaine last night patient has a baseline hallucination, but now the voice is telling him to end his life, patient is suicidal with no specific plan, patient had a history of suicidal attempt by stabbing himself in the chest. Patient today is suicidal and still hearing voices. <Jody Moreno MD - Last Filed: 12/23/20 07:12> Related Data Home Medications: Home Medications Medication Instructions Recorded Confirmed bupropion HCl 300 mg 24 hr tablet, 300 mg PO BID 12/23/20 12/23/20 extended release Previous Rx's Medication Instructions Recorded amlodipine 10 mg tablet 10 mg PO DAILY 30 Days #30 tab 12/04/20 benztropine 1 mg tablet 1 mg PO BID 30 Days #60 tab 12/04/20 buspirone 5 mg tablet 15 mg PO TID 30 Days #270 tab 12/04/20 haloperidol 5 mg tablet 10 mg PO BID 30 Days #120 tab 12/04/20 haloperidol decanoate 50 mg/mL 50 mg IM Q14D #0 ml 12/04/20 intramuscular solution lisinopril 5 mg tablet 5 mg PO DAILY 30 Days #30 tab 12/04/20 omeprazole 20 mg capsule,delayed 20 mg PO DAILY@0630 30 Days #30 cap 12/04/20 release <Jody Moreno MD - Last Filed: 12/23/20 07:12> Allergies/Adverse Reactions: Allergies Allergy/AdvReac Type Severity Reaction Status Date / Time No Known Allergies Allergy Verified 06/16/20 08:00 <Jody Moreno MD - Last Filed: 12/23/20 07:12> Review of Systems Review of Systems: All other systems are reviewed and are negative Constitutional: Reports as per HPI and Reports no additional constitutional complaints Eyes: Reports as per HPI and Reports no additional eye complaints Reports system reviewed and no additional complaints, except as documented Cardiovascular: Reports as per HPI and Reports no additional cardiovascular complaints Respiratory: Reports as per HPI and Reports no additional respiratory complaints Gastrointestinal: Reports as per HPI and Reports no additional gastrointestinal complaints Genitourinary: Reports no additional female genitourinary complaints Musculoskeletal: Reports no additional musculoskeletal complaints Skin/Breast: Reports system reviewed and no additional complaints, except as docu Psychiatric: Reports no additional psychiatric complaints Endocrine: Reports no additional endocrine complaints Hematologic/Lymphatic: Reports no additional hematologic/lymphatic complaints Allergic/Immunologic: Reports no additional allergic/immunologic complaints Reports system reviewed and no additional complaints, except as documented and Reports Abnormal speech present. <Jody Moreno MD - Last Filed: 12/23/20 07:12> [facility] Past Medical History Medical History: Medical History Bipolar disorder Chronic post-traumatic stress disorder (PTSD) Coma Hallucinations HTN (hypertension) Schizoaffective disorder TBI (traumatic brain injury) <Jody Moreno MD - Last Filed: 12/23/20 07:12> Social History Social History: Social History Household Members: None Housing: Apartment Do you presently have visiting nurse or other home services: No Alcohol intake: unknown Patient Tobacco Use Status: Current everyday Tobacco user Tobacco use type: Cigarette Cigarette Packs Per Day: 0 Cigarettes Per Day: 5 Years Smoked: 15 Second Hand Smoke Exposure: Yes Use of substances other than those prescribed or required for medical reasons: Yes Substance Use Type: Crack/Cocaine Advance Directives: No Advance Directives Information Provided: No service: No Sexual orientation: Don't Know <Jody Moreno MD - Last Filed: 12/23/20 07:12> Physical Exam Vital Signs: Vital Signs: Last Vital Signs Temp 99.3 F 12/23/20 16:15 Pulse 80 12/23/20 16:15 Resp 16 12/23/20 16:15 BP 131/83 12/23/20 16:15 Pulse Ox 98 12/23/20 16:15 Body Mass Index 29.0 <Jody Moreno MD - Last Filed: 12/23/20 07:12> Vital Signs: Last Vital Signs Temp 99.3 F 12/23/20 16:15 Pulse 80 12/23/20 16:15 Resp 16 12/23/20 16:15 BP 131/83 12/23/20 16:15 Pulse Ox 98 12/23/20 16:15 Body Mass Index 29.0 <Elfego Linda MD - Last Filed: 12/23/20 16:50> MDM - Psych MDM Narrative Medical decision making narrative: Patient seen by therapist with discharging patient home advised to follow-up with therapist and stop using cocaine <Elfego Linda MD - Last Filed: 12/23/20 16:50> Lab Data Result diagrams: : 12/23/20 07:36 12/23/20 07:36 <Jody Moreno MD - Last Filed: 12/23/20 07:12> Labs: Lab Results 12/23/20 12/23/20 12/23/20 Range/Units 07:36 07:36 07:36 WBC 5.1 (4.8-10.8) X10*3/uL RBC 4.04 L (4.60-5.80) X10*6/uL Hgb 13.3 L (14.0-18.0) g/dl Hct 39.6 L (42.0-52.0) % MCV 98.0 (80.0-98.0) fL MCH 32.9 (27.0-33.0) pg MCHC 33.6 (31.0-36.0) g/dl RDW 12.6 (11.0-16.0) % Plt Count 193 (160-400) X10*3/uL MPV 9.6 (9.4-12.4) fL Immature Gran % (Auto) 0.2 (0.0-0.4) % Neut % (Auto) 63.6 (45-73) % Lymph % (Auto) 23.3 (20-40) % [place] % (Auto) 10.5 (2-11) % Eos % (Auto) 2.0 (0-4) % Baso % (Auto) 0.4 (0-2) % Lymph # (Auto) 1.2 (1.2-4.9) X10*3/uL [place] # (Auto) 0.5 (0.1-1.2) X10*3/uL Eos # (Auto) 0.1 (0.0-0.4) X10*3/uL Baso # (Auto) 0.0 (0.0-0.2) X10*3/uL Abs Immat Gran (auto) 0.01 (0.00-0.03) X10*3/uL Absolute Neuts (auto) 3.2 (2.0-8.3) x10*3/uL Absolute Nucleated RBC 0.000 (0.0-0.012) X10*3/uL Nucleated RBC % (auto) 0.0 (0.0-0.2) /100WBC Sodium 137 (135-145) mmol/L Potassium 4.0 (3.3-5.1) mmol/L Chloride 100 (96-108) mmol/L Carbon Dioxide 27 (22-29) mmol/L Anion Gap 14 (12-20) BUN 20 H (9-16) mg/dL Creatinine 1.08 (0.5-1.4) mg/dL Estim Creat Clear Calc 102.8 Estimated GFR > 60 Random Glucose 85 (60-115) mg/dL Calcium 9.3 (8.4-10.2) mg/dL Urine Color Urine Appearance Urine pH (5.0-8.0) Ur Specific [place] (1.005-1.025) Urine Protein (NEG-TRACE) MG/DL Urine Glucose (UA) (NEG) MG/DL Urine Ketones (NEG) MG/DL Urine Blood (NEG) Urine Nitrite (NEG) Ur Leukocyte Esterase (NEG) Urine RBC (0) /HPF Urine WBC (0-4) /HPF Ur Squamous Epith Cells /LPF Ur Renal Epithelial Cell /LPF Talc Crystals /LPF Urine Bacteria /LPF Urine Mucus /LPF Salicylates < 5.0 L (15-30) mg/dL Urine Opiates Screen (Not Detect) Urine Fentanyl Screen (Not Detect) Acetaminophen < 1 (<30) mcg/mL Ur Barbiturates Screen (Not Detect) Ur Phencyclidine Scrn (Not Detect) Ur Amphetamines Screen (Not Detect) U Benzodiazepines Scrn (Not Detect) Urine Cocaine Screen (Not Detect) U Marijuana (THC) Screen (Not Detect) Ethyl Alcohol < 10 mg/dL COVID-19 (FABIAN) (Negative) COVID-19 Clin Com 12/23/20 12/23/20 12/23/20 Range/Units 07:36 15:07 15:07 WBC (4.8-10.8) X10*3/uL RBC (4.60-5.80) X10*6/uL Hgb (14.0-18.0) g/dl Hct (42.0-52.0) % MCV (80.0-98.0) fL MCH (27.0-33.0) pg MCHC (31.0-36.0) g/dl RDW (11.0-16.0) % Plt Count (160-400) X10*3/uL MPV (9.4-12.4) fL Immature Gran % (Auto) (0.0-0.4) % Neut % (Auto) (45-73) % Lymph % (Auto) (20-40) % [place] % (Auto) (2-11) % Eos % (Auto) (0-4) % Baso % (Auto) (0-2) % Lymph # (Auto) (1.2-4.9) X10*3/uL [place] # (Auto) (0.1-1.2) X10*3/uL Eos # (Auto) (0.0-0.4) X10*3/uL Baso # (Auto) (0.0-0.2) X10*3/uL Abs Immat Gran (auto) (0.00-0.03) X10*3/uL Absolute Neuts (auto) (2.0-8.3) x10*3/uL Absolute Nucleated RBC (0.0-0.012) X10*3/uL Nucleated RBC % (auto) (0.0-0.2) /100WBC Sodium (135-145) mmol/L Potassium (3.3-5.1) mmol/L Chloride (96-108) mmol/L Carbon Dioxide (22-29) mmol/L Anion Gap (12-20) BUN (9-16) mg/dL Creatinine (0.5-1.4) mg/dL Estim Creat Clear Calc Estimated GFR Random Glucose (60-115) mg/dL Calcium (8.4-10.2) mg/dL Urine Color YELLOW Urine Appearance CLEAR Urine pH 6.0 (5.0-8.0) Ur Specific [place] 1.020 (1.005-1.025) Urine Protein NEG (NEG-TRACE) MG/DL Urine Glucose (UA) NEG (NEG) MG/DL Urine Ketones NEG (NEG) MG/DL Urine Blood NEG (NEG) Urine Nitrite NEG (NEG) Ur Leukocyte Esterase TRACE H (NEG) Urine RBC 0 (0) /HPF Urine WBC 1-4 (0-4) /HPF Ur Squamous Epith Cells 1+ /LPF Ur Renal Epithelial Cell TRACE /LPF Talc Crystals TRACE /LPF Urine Bacteria TRACE /LPF Urine Mucus 1+ /LPF Salicylates (15-30) mg/dL Urine Opiates Screen Not Detected (Not Detect) Urine Fentanyl Screen Not Detected (Not Detect) Acetaminophen (<30) mcg/mL Ur Barbiturates Screen Not Detected (Not Detect) Ur Phencyclidine Scrn Not Detected (Not Detect) Ur Amphetamines Screen Not Detected (Not Detect) U Benzodiazepines Scrn Not Detected (Not Detect) Urine Cocaine Screen POSITIVE H (Not Detect) U Marijuana (THC) Screen POSITIVE H (Not Detect) Ethyl Alcohol mg/dL COVID-19 (FABIAN) Negative (Negative) COVID-19 Clin Com See Note <Jody Moreno MD - Last Filed: 12/23/20 07:12> Lab Results 12/23/20 12/23/20 12/23/20 Range/Units 07:36 07:36 07:36 WBC 5.1 (4.8-10.8) X10*3/uL RBC 4.04 L (4.60-5.80) X10*6/uL Hgb 13.3 L (14.0-18.0) g/dl Hct 39.6 L (42.0-52.0) % MCV 98.0 (80.0-98.0) fL MCH 32.9 (27.0-33.0) pg MCHC 33.6 (31.0-36.0) g/dl RDW 12.6 (11.0-16.0) % Plt Count 193 (160-400) X10*3/uL MPV 9.6 (9.4-12.4) fL Immature Gran % (Auto) 0.2 (0.0-0.4) % Neut % (Auto) 63.6 (45-73) % Lymph % (Auto) 23.3 (20-40) % [place] % (Auto) 10.5 (2-11) % Eos % (Auto) 2.0 (0-4) % Baso % (Auto) 0.4 (0-2) % Lymph # (Auto) 1.2 (1.2-4.9) X10*3/uL [place] # (Auto) 0.5 (0.1-1.2) X10*3/uL Eos # (Auto) 0.1 (0.0-0.4) X10*3/uL Baso # (Auto) 0.0 (0.0-0.2) X10*3/uL Abs Immat Gran (auto) 0.01 (0.00-0.03) X10*3/uL Absolute Neuts (auto) 3.2 (2.0-8.3) x10*3/uL Absolute Nucleated RBC 0.000 (0.0-0.012) X10*3/uL Nucleated RBC % (auto) 0.0 (0.0-0.2) /100WBC Sodium 137 (135-145) mmol/L Potassium 4.0 (3.3-5.1) mmol/L Chloride 100 (96-108) mmol/L Carbon Dioxide 27 (22-29) mmol/L Anion Gap 14 (12-20) BUN 20 H (9-16) mg/dL Creatinine 1.08 (0.5-1.4) mg/dL Estim Creat Clear Calc 102.8 Estimated GFR > 60 Random Glucose 85 (60-115) mg/dL Calcium 9.3 (8.4-10.2) mg/dL Urine Color Urine Appearance Urine pH (5.0-8.0) Ur Specific [place] (1.005-1.025) Urine Protein (NEG-TRACE) MG/DL Urine Glucose (UA) (NEG) MG/DL Urine Ketones (NEG) MG/DL Urine Blood (NEG) Urine Nitrite (NEG) Ur Leukocyte Esterase (NEG) Urine RBC (0) /HPF Urine WBC (0-4) /HPF Ur Squamous Epith Cells /LPF Ur Renal Epithelial Cell /LPF Talc Crystals /LPF Urine Bacteria /LPF Urine Mucus /LPF Salicylates < 5.0 L (15-30) mg/dL Urine Opiates Screen (Not Detect) Urine Fentanyl Screen (Not Detect) Acetaminophen < 1 (<30) mcg/mL Ur Barbiturates Screen (Not Detect) Ur Phencyclidine Scrn (Not Detect) Ur Amphetamines Screen (Not Detect) U Benzodiazepines Scrn (Not Detect) Urine Cocaine Screen (Not Detect) U Marijuana (THC) Screen (Not Detect) Ethyl Alcohol < 10 mg/dL COVID-19 (FABIAN) (Negative) COVID-19 Clin Com 12/23/20 12/23/20 12/23/20 Range/Units 07:36 15:07 15:07 WBC (4.8-10.8) X10*3/uL RBC (4.60-5.80) X10*6/uL Hgb (14.0-18.0) g/dl Hct (42.0-52.0) % MCV (80.0-98.0) fL MCH (27.0-33.0) pg MCHC (31.0-36.0) g/dl RDW (11.0-16.0) % Plt Count (160-400) X10*3/uL MPV (9.4-12.4) fL Immature Gran % (Auto) (0.0-0.4) % Neut % (Auto) (45-73) % Lymph % (Auto) (20-40) % [place] % (Auto) (2-11) % Eos % (Auto) (0-4) % Baso % (Auto) (0-2) % Lymph # (Auto) (1.2-4.9) X10*3/uL [place] # (Auto) (0.1-1.2) X10*3/uL Eos # (Auto) (0.0-0.4) X10*3/uL Baso # (Auto) (0.0-0.2) X10*3/uL Abs Immat Gran (auto) (0.00-0.03) X10*3/uL Absolute Neuts (auto) (2.0-8.3) x10*3/uL Absolute Nucleated RBC (0.0-0.012) X10*3/uL Nucleated RBC % (auto) (0.0-0.2) /100WBC Sodium (135-145) mmol/L Potassium (3.3-5.1) mmol/L Chloride (96-108) mmol/L Carbon Dioxide (22-29) mmol/L Anion Gap (12-20) BUN (9-16) mg/dL Creatinine (0.5-1.4) mg/dL Estim Creat Clear Calc Estimated GFR Random Glucose (60-115) mg/dL Calcium (8.4-10.2) mg/dL Urine Color YELLOW Urine Appearance CLEAR Urine pH 6.0 (5.0-8.0) Ur Specific [place] 1.020 (1.005-1.025) Urine Protein NEG (NEG-TRACE) MG/DL Urine Glucose (UA) NEG (NEG) MG/DL Urine Ketones NEG (NEG) MG/DL Urine Blood NEG (NEG) Urine Nitrite NEG (NEG) Ur Leukocyte Esterase TRACE H (NEG) Urine RBC 0 (0) /HPF Urine WBC 1-4 (0-4) /HPF Ur Squamous Epith Cells 1+ /LPF Ur Renal Epithelial Cell TRACE /LPF Tal[place] Crystals TRACE /LPF Urine Bacteria TRACE /LPF Urine Mucus 1+ /LPF Salicylates (15-30) mg/dL Urine Opiates Screen Not Detected (Not Detect) Urine Fentanyl Screen Not Detected (Not Detect) Acetaminophen (<30) mcg/mL Ur Barbiturates Screen Not Detected (Not Detect) Ur Phencyclidine Scrn Not Detected (Not Detect) Ur Amphetamines Screen Not Detected (Not Detect) U Benzodiazepines Scrn Not Detected (Not Detect) Urine Cocaine Screen POSITIVE H (Not Detect) U Marijuana (THC) Screen POSITIVE H (Not Detect) Ethyl Alcohol mg/dL COVID-19 (FABIAN) Negative (Negative) COVID-19 Clin Com See Note <Elfego Linda MD - Last Filed: 12/23/20 16:50> Discharge Plan Discharge Clinical Impression: Depression with suicidal ideation Schizoaffective disorder Qualifiers: Schizoaffective disorder type: bipolar Qualified Code(s): F25.0 - Schizoaffective disorder, bipolar type <Jody Moreno MD - Last Filed: 12/23/20 07:12> Patient Disposition: Home, Self-Care <Jody Moreno MD - Last Filed: 12/23/20 07:12> Instructions: Cocaine Abuse (ED), Depression (ED), Schizoaffective Disorder (ED) <Jody Moreno MD - Last Filed: 12/23/20 07:12> Additional Instructions: Follow-up with therapist Taking medication as prescribed <Jody Moreno MD - Last Filed: 12/23/20 07:12> Prescriptions: No Action buspirone 5 mg Tablet 15 mg PO TID 30 Days Qty: 270 RF: 0 haloperidol 5 mg Tablet 10 mg PO BID 30 Days Qty: 120 RF: 0 amlodipine 10 mg Tablet 10 mg PO DAILY 30 Days Qty: 30 RF: 0 benztropine 1 mg Tablet 1 mg PO BID 30 Days Qty: 60 RF: 0 haloperidol decanoate 50 mg/mL Solution 50 mg IM Q14D Qty: 0 RF: 0 lisinopril 5 mg Tablet 5 mg PO DAILY 30 Days Qty: 30 RF: 0 omeprazole 20 mg Capsule,Delayed Release(Dr/Ec) 20 mg PO DAILY@0630 30 Days Qty: 30 RF: 0 bupropion HCl 300 mg tablet extended release 24 hr 300 mg PO BID RF: 0 <Jody Moreno MD - Last Filed: 12/23/20 07:12>
[2020-12-23 07:20] VITALS: BP 148/100; BP 152/102; PULSE 67; PULSE 68; RESP 16; TEMP 36.5; O2SAT 100; O2SAT 98; BMI 29.0
[2020-12-23 07:43] LABS: MANUAL DIFF FLAG NO
[2020-12-23 07:45] LABS: Basophils Percent Auto 0.4 % (0-2); Eosinophils Absolute Auto 0.1 X10*3/uL (0.0-0.4); Hematocrit 39.6 % (42.0-52.0); Hemoglobin 13.3 g/dl (14.0-18.0); Imm Gran Abs Auto 0.01 X10*3/uL (0.00-0.03); Imm Gran Pct Auto 0.2 % (0.0-0.4); Lymphocytes Absolute Auto 1.2 X10*3/uL (1.2-4.9); Lymphocytes Percent Auto 23.3 % (20-40); Mean Corpuscular HGB Conc 33.6 g/dl (31.0-36.0); Mean Corpuscular Hemoglobin 32.9 pg (27.0-33.0); Mean Platelet Volume 9.6 fL (9.4-12.4); Monocytes Absolute Auto 0.5 X10*3/uL (0.1-1.2); Monocytes Percent Auto 10.5 % (2-11); Neutrophils Absolute Auto 3.2 x10*3/uL (2.0-8.3); Neutrophils Percent Auto 63.6 % (45-73); Platelet Count 193 X10*3/uL (160-400); Red Blood Count 4.04 X10*6/uL (4.60-5.80); Red Cell Distribution Width 12.6 % (11.0-16.0); White Blood Count 5.1 X10*3/uL (4.8-10.8)
[2020-12-23 08:07] LABS: Ethanol < 10 mg/dL
[2020-12-23 08:08] LABS: COVID-19 Test Negative (Negative); IDNOW Serial# 08D9AD1C
[2020-12-23 08:17] LABS: Acetaminophen LAB < 1 mcg/mL (<30)
[2020-12-23 08:23] LABS: Anion Gap 14 (12-20); Blood Urea Nitrogen 20 mg/dL (9-16); Calcium 9.3 mg/dL (8.4-10.2); Carbon Dioxide 27 mmol/L (22-29); Chloride 100 mmol/L (96-108); Creatinine Clr Calc Pharmacy 102.8; Estimated Glomerular Filt Rate > 60; Glucose Random 85 mg/dL (60-115); Salicylate < 5.0 mg/dL (15-30); Sodium 137 mmol/L (135-145)
--- NOTE | 2020-12-23 11:58 | PC.NURSE ---
smart sheet sent to [facility]
[2020-12-23 14:00] VITALS: RESP 16
--- NOTE | 2020-12-23 14:53 | PC.NURSE ---
rn to rn with [place]. Pt to be transfered to POD. [facility] has seen the patient and plan is for respite.
[2020-12-23 15:17] LABS: Appearance Urine CLEAR; Color Urine YELLOW; Glucose Urine UA NEG (NEG); Leukocyte Esterase Urine TRACE (NEG); Nitrite Urine NEG (NEG); UACC Culture Trigger YES; Urine Blood NEG (NEG); Urine Ketones NEG (NEG); Urine Protein NEG (NEG-TRACE)
[2020-12-23 15:25] LABS: Bacteria Urine TRACE /LPF; Mucus Urine 1+ /LPF; RBC Urine 0 /HPF (0); Renal Epithelial Cells Urine TRACE /LPF; Squamous Epithelial Cell Urine 1+ /LPF; Urine Talc Crystals TRACE /LPF
[2020-12-23 15:33] LABS: Amphetamine Screen Urine Not Detected (Not Detect); Barbiturates, Urine Not Detected (Not Detect); Benzodiazepines Screen Urine Not Detected (Not Detect); Cannabinoid Screen Urine POSITIVE (Not Detect); Cocaine Screen Urine POSITIVE (Not Detect); Fentanyl, urine Not Detected (Not Detect); Opiate Screen Urine Not Detected (Not Detect); Phencyclidine Screen Urine Not Detected (Not Detect)
--- NOTE | 2020-12-23 15:54 | PC.NURSE ---
Pt was ambulatory to Pod. Calm and cooperative. Resting in room BH3 mostly, requesting fluids. Pt states that he was having hallucinations last night which scared his girlfriend. She called 911. Pt has been off all meds x 2-4 days but likely received IM haldol w/in last 14 days. PT is homeless and has SI with thoughts of jumping into traffic or shooting up . Also states that last night made an attempt at suicide by taking off layers of clothing in the cold.
--- NOTE | 2020-12-23 16:06 | PHA.MEDREC ---
Pharmacy Consult ? Medication Reconciliation Pharmacy has completed the medication reconciliation. Patient states they got haloperidol injection after discharge but Esperanza Rivas and his PCP have no records of anything after 12/02 when he received it here Thanks Shaggy Fisher Pharm D
[2020-12-23 16:15] VITALS: BP 131/83; PULSE 80; RESP 16; TEMP 37.4; O2SAT 98
--- NOTE | 2020-12-23 18:14 | PC.NURSE ---
JIMMIE dispo was for discharge to home . Pt is homeless and has struggled to solidify permanent housing. Uses respite on and off. Has a social services director who is trying to secure housing but patient has been on waiting list for over a year. Option for shelters for tonight was discussed and patient would rather go back to sleep under the bridge in [place] than go to a nursing home and try to use because (he's) been trying to fit in my whole life . Daphnie osorio was called by patient. Healther from CARE team speaking with patient about discharge plans and resources. All meds ordered for now since patient isn't likely to have access to meds in near future.
[2020-12-23 18:37] VITALS: BP 131/83; PULSE 80
[2020-12-23] MEDS: amLODIPine Besylate 10 MG TABLET PO (18:37)
[2020-12-23] MEDS: HaloperidoL 5 MG TABLET 10 MG PO ×2 (18:37→21:05)
[2020-12-23] MEDS: lisinopriL 5 MG TABLET PO (18:37)
[2020-12-23] MEDS: Benztropine Mesylate 1 MG TABLET PO ×2 (18:37→21:05)
[2020-12-23] MEDS: Omeprazole 20 MG CAPSULE.DR PO (18:37)
[2020-12-23] MEDS: buPROPion HCl XL 300 MG TAB.ER.24H PO (18:38)
[2020-12-23] MEDS: busPIRone HCl 5 MG TABLET 15 MG PO (18:38)
--- NOTE | 2020-12-23 18:52 | MHC.CARE ---
CARE team support requested by pod nurse re: possible resources for pt to be discharged with/to. He was cleared for discharge by a [employer] rotor casting machine setup operator this afternoon however there is no indication that a plan to ensure a safe discharge was discussed. Pt is homeless and has been staying in a tent [place] a bridge in [place]. He expressed concerns about the dropping temperatures at night and that he wouldn't be able to get into a bed at any of the shelters in [place]. He won't go to the [facility] because he doesn't want to put himself in a situation where he is more likely to use substances. This engineering writer spoke with pt to brainstorm how to increase the likelihood of a successful ED discharge. He continued to endorse vague suicidal ideation, which is baseline for him, and felt that the clinician who assessed him was dismissive. This engineering writer spoke with pod nurse who was advocating for pt to be allowed to stay in ED for night and discharge in the morning, which this engineering writer is in agreement with. Consulted with ED physician for approval for pt to stay in ED overnight and discharge in the morning. Pt was updated re: the plan and verbalized an understanding that he will be discharged in the morning without assessment/reassessment.
[2020-12-24 05:10] VITALS: BP 134/65; PULSE 93; RESP 18; TEMP 36.7; O2SAT 98
--- NOTE | 2020-12-24 05:24 | PC.NURSE ---
Patient slept through the night, no distress observed/reported, medication compliant, behavior appropriate, denied SI/HI/AVH at this time, contracted for the safety, VSS, patient disposition is d/c in the morning and patient is aware, will continue to monitor.
[2020-12-24] MEDS: Omeprazole 20 MG CAPSULE.DR PO (05:36)
--- NOTE | 2020-12-24 07:03 | PC.NURSE ---
patient appears to remain asleep at present, respirations are even and unlabored, patient appears in no distress
[2020-12-24] MEDS: busPIRone HCl 5 MG TABLET 15 MG PO (07:57)
[2020-12-24 07:58] VITALS: BP 134/65; PULSE 93
[2020-12-24] MEDS: lisinopriL 5 MG TABLET PO (07:58)
[2020-12-24] MEDS: amLODIPine Besylate 10 MG TABLET PO (07:58)
[2020-12-24] MEDS: HaloperidoL 5 MG TABLET 10 MG PO (07:58)
[2020-12-24] MEDS: Benztropine Mesylate 1 MG TABLET PO (07:58)
[2020-12-24] MEDS: buPROPion HCl XL 300 MG TAB.ER.24H PO (07:59)
== END 2020-12-24 08:23 | disposition home or self-care (01) ==
PROVIDERS: Emergency Provider Emergency Medicine; PCP Nurse Practitioner Family
DX: F32.A Depression, unspecified (principal); R45.851 Suicidal ideations; F25.0 Schizoaffective disorder, bipolar type; F14.90 Cocaine use, unspecified, uncomplicated; I10 Essential (primary) hypertension; Z20.822 Contact with and (suspected) exposure to COVID-19
CPT/HCPCS: 36415; 80048; 80143; 80179; 80307; 81001; 82077; 85025; 87086; 87635; 99285

== ENCOUNTER 2021-01-01 12:59 | Emergency (ER) | payer MEDICARE, MEDICAID, SELFPAY ==
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
[2021-01-01 13:22] VITALS: BP 138/74; BP 140/70; PULSE 102; PULSE 98; RESP 18; TEMP 36.9; O2SAT 100; O2SAT 95; BMI 29.8
[2021-01-01 14:39] LABS: COVID-19 Test Negative (Negative)
[2021-01-01 15:31] LABS: MANUAL DIFF FLAG NO
[2021-01-01 15:33] LABS: Basophils Percent Auto 0.6 % (0-2); Eosinophils Absolute Auto 0.1 X10*3/uL (0.0-0.4); Eosinophils Percent Auto 2.6 % (0-4); Hematocrit 40.9 % (42.0-52.0); Imm Gran Abs Auto 0.02 X10*3/uL (0.00-0.03); Imm Gran Pct Auto 0.4 % (0.0-0.4); Lymphocytes Absolute Auto 1.3 X10*3/uL (1.2-4.9); Lymphocytes Percent Auto 24.7 % (20-40); Mean Corpuscular HGB Conc 34.2 g/dl (31.0-36.0); Mean Corpuscular Hemoglobin 32.8 pg (27.0-33.0); Mean Corpuscular Volume 95.8 fL (80.0-98.0); Mean Platelet Volume 9.8 fL (9.4-12.4); Monocytes Absolute Auto 0.5 X10*3/uL (0.1-1.2); Monocytes Percent Auto 8.5 % (2-11); Neutrophils Absolute Auto 3.4 x10*3/uL (2.0-8.3); Neutrophils Percent Auto 63.2 % (45-73); Platelet Count 207 X10*3/uL (160-400); Red Blood Count 4.27 X10*6/uL (4.60-5.80); Red Cell Distribution Width 12.3 % (11.0-16.0); White Blood Count 5.3 X10*3/uL (4.8-10.8)
[2021-01-01 15:50] LABS: Alanine Aminotransferase 21 U/L (0-40); Albumin Level 3.7 g/dL (3.5-5.0); Alkaline Phosphatase 80 U/L (39-117); Anion Gap 11 (12-20); Aspartate Amino Transferase 38 U/L (5-37); Bilirubin Direct 0.2 mg/dL (0.0-0.5); Bilirubin Total 0.4 mg/dL (0.0-1.0); Blood Urea Nitrogen 20 mg/dL (9-16); Calcium 9.2 mg/dL (8.4-10.2); Carbon Dioxide 28 mmol/L (22-29); Chloride 103 mmol/L (96-108); Creatinine Clr Calc Pharmacy 88.8; Estimated Glomerular Filt Rate > 60; Glucose Random 125 mg/dL (60-115); Magnesium 2.3 mg/dL (1.6-2.6); Potassium 3.9 mmol/L (3.3-5.1); Sodium 138 mmol/L (135-145); Total Protein 6.8 g/dL (6.5-8.0)
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
[2021-01-01 18:16] LABS: Amphetamine Screen Urine Not Detected (Not Detect); Barbiturates, Urine Not Detected (Not Detect); Benzodiazepines Screen Urine Not Detected (Not Detect); Cannabinoid Screen Urine POSITIVE (Not Detect); Cocaine Screen Urine POSITIVE (Not Detect); Fentanyl, urine POSITIVE (Not Detect); Opiate Screen Urine Not Detected (Not Detect); Phencyclidine Screen Urine Not Detected (Not Detect)
--- NOTE | 2021-01-02 01:15 | PC.NURSE ---
Patient just woke after sleeping whole evening, used bathroom and refreshed with drinks, currently with N clinician seems engaged, behavior appropriate, will continue to monitor.
[2021-01-02] MEDS: HaloperidoL 5 MG TABLET 10 MG PO ×2 (03:24→08:01)
--- NOTE | 2021-01-02 05:58 | PC.NURSE ---
Patient in bed appears sleeping, slept through the night, no distress observed/reported, patient was evaluated by JIMMIE, disposition is respite - [facility] in [place], N arrange a ride after confirming the bed at [facility], patient behavior calm and quiet, medication compliant, will continue to monitor.
[2021-01-02 06:11] VITALS: BP 136/90; PULSE 91; RESP 16; TEMP 37.2; O2SAT 99
[2021-01-02] MEDS: Omeprazole 20 MG CAPSULE.DR PO (07:09)
--- NOTE | 2021-01-02 07:11 | PC.NURSE ---
patient awake early but in good spirits, up to use restroom and took omeprazole readily, asks approriate questions regarding medications.
[2021-01-02] MEDS: Benztropine Mesylate 1 MG TABLET PO (08:01)
[2021-01-02] MEDS: busPIRone HCl 5 MG TABLET 15 MG PO (08:01)
[2021-01-02 08:02] VITALS: BP 136/90; PULSE 91
[2021-01-02] MEDS: amLODIPine Besylate 10 MG TABLET PO (08:02)
[2021-01-02] MEDS: lisinopriL 5 MG TABLET PO (08:02)
[2021-01-02] MEDS: buPROPion HCl XL 300 MG TAB.ER.24H PO (08:02)
--- NOTE | 2021-01-02 09:22 | PHA.MEDREC ---
Pharmacy Consult ? Medication Reconciliation Pharmacy has reviewed the medication reconciliation completed by Oliver roy. Sophia Root, FransiscaD
--- NOTE | 2021-01-02 09:28 | MHC.CARE ---
CARE Team spoke with CHINO CESAR is reviewing Pts respite application at 10am.
[2021-01-06 09:26] LABS: Haloperidol 1 ng/mL (5-15)
== END 2021-01-02 11:00 | disposition home or self-care (01) ==
PROVIDERS: Physician Assistant; Emergency Provider Emergency Medicine; PCP Nurse Practitioner Family
DX: F14.151 Cocaine abuse with cocaine-induced psychotic disorder with hallucinations (principal); R45.851 Suicidal ideations; F25.0 Schizoaffective disorder, bipolar type; R45.850 Homicidal ideations; F43.12 Post-traumatic stress disorder, chronic; R51.9 Headache, unspecified; R00.0 Tachycardia, unspecified; Z87.820 Personal history of traumatic brain injury; Z20.822 Contact with and (suspected) exposure to COVID-19; Z91.14 Patient's other noncompliance with medication regimen; Z79.899 Other long term (current) drug therapy
CPT/HCPCS: 36415; 70450; 80048; 80076; 80173; 80307; 83735; 85025; 87635; 96372; 99284; 99285

== ENCOUNTER 2021-01-09 04:36 | Emergency (ER) | payer MEDICARE, MEDICAID, SELFPAY ==
[2021-01-09 04:59] VITALS: BP 140/80; BP 169/105; PULSE 80; PULSE 82; RESP 20; TEMP 36.3; O2SAT 96; O2SAT 99; BMI 28.8
--- NOTE | 2021-01-09 05:37 | ED_ITS ---
HPI - Psych General Chief Complaint: Psychiatric Symptoms Stated Complaint: etoh Time Seen by Provider: 01/09/21 05:37 Source: patient Mode of arrival: EMS History of Present Illness HPI Narrative: patient 50 years old with history of bipolar disorder, PTSD, schizoaffective disorder, TBI been to our facility multiple times for hallucinations and suicidal feeling last admission was in 08/04 comes here as patient was at stranger's house and had wine since then been feeling bad hallucinating with thoughts of killing himself plan to cut his wrist. Patient requesting to go to [facility]. Patient supposed to go [facility] on 11/15 but could not go Related Data Home Medications Medication Instructions Recorded Confirmed bupropion HCl 300 mg 24 hr tablet, 300 mg PO BID 12/23/20 01/01/21 extended release Previous Rx's Medication Instructions Recorded amlodipine 10 mg tablet 10 mg PO DAILY 30 Days #30 tab 12/04/20 benztropine 1 mg tablet 1 mg PO BID 30 Days #60 tab 12/04/20 buspirone 5 mg tablet 15 mg PO TID 30 Days #270 tab 12/04/20 haloperidol 5 mg tablet 10 mg PO BID 30 Days #120 tab 12/04/20 haloperidol decanoate 50 mg/mL 50 mg IM Q14D #0 ml 12/04/20 intramuscular solution lisinopril 5 mg tablet 5 mg PO DAILY 30 Days #30 tab 12/04/20 omeprazole 20 mg capsule,delayed 20 mg PO DAILY@0630 30 Days #30 cap 12/04/20 release Allergies Allergy/AdvReac Type Severity Reaction Status Date / Time No Known Allergies Allergy Verified 12/24/20 00:12 Review of Systems Review of Systems: Constitutional : No Fever, No Chills ENT/Mouth : No Ear Pain, No Nasal Congestion, No sore throat Eyes: No Eye Pain, No Swelling, No Redness Cardiovascular : No Chest Pain, No SOB Respiratory : No Cough, No Sputum, No Dyspnea Gastrointestinal : No Nausea, No Vomiting, No Diarrhea, No Hematochezia, No Melena Genitourinary : No Dysuria, No Urinary Frequency, No Hematuria Musculoskeletal : No Myalgias Skin : No Skin Lesions, No rash Neuro : No Weakness, No Numbness, No Paresthesias, No Dizziness, No Headache Psych : positive Anxiety, positive Depression, positive SI positive hallucinations Heme/Lymph: No Lymphadenopathy Endocrine : No Polyuria, No Polydipsia [facility] Past Medical History Medical History Bipolar disorder Chronic post-traumatic stress disorder (PTSD) Coma Hallucinations HTN (hypertension) Schizoaffective disorder TBI (traumatic brain injury) Social History Social History Household Members: None Housing: Apartment Do you presently have visiting nurse or other home services: No Alcohol intake: unknown Patient Tobacco Use Status: Current everyday Tobacco user Tobacco use type: Cigarette Cigarette Packs Per Day: 0 Cigarettes Per Day: 5 Years Smoked: 15 Second Hand Smoke Exposure: Yes Substance Use Type: Crack/Cocaine Advance Directives: No Advance Directives Information Provided: Yes service: No Sexual orientation: Don't Know Physical Exam Vital Signs: Vital Signs: Last Vital Signs Temp 97.4 F 01/09/21 04:59 Pulse 88 01/09/21 06:16 Resp 20 01/09/21 06:16 BP 146/81 H 01/09/21 06:16 Pulse Ox 98 01/09/21 06:16 Body Mass Index 28.8 Appearance: Alert. Oriented X3. No acute distress. Eyes: PERRLA, No Nystagmus ENT: Pharynx normal. Oral Mucosa moist Neck: Normal inspection. Neck supple. CVS: Normal heart rate and rhythm. Pulses normal. Respiratory: No respiratory distress. Equal air entry bilateral, no wheezing/rales/rhonchi Abdomen: Soft and nontender. Bowel sounds are present, no mass palpable, no CVA tenderness Skin: Skin warm and dry. Normal skin color. Normal skin turgor. Extremities: No lower extremity edema. No calf tenderness Psych: , calm and cooperative feels suicidal having auditory hallucinations Neuro: Oriented X 3. No motor deficit. No sensory deficit.No cerebellar signs , cranial nerves II-XII intact MDM - Psych MDM Narrative Medical decision making narrative: patient's schizoaffective disorder, PTSD , TBI will consult [facility] for placement at respite Lab Data Labs: Lab Results 01/09/21 01/09/21 01/09/21 Range/Units 06:07 06:07 06:10 Urine Opiates Screen Not Detected (Not Detect) Urine Fentanyl Screen POSITIVE H (Not Detect) Ur Barbiturates Screen Not Detected (Not Detect) Ur Phencyclidine Scrn Not Detected (Not Detect) Ur Amphetamines Screen Not Detected (Not Detect) U Benzodiazepines Scrn Not Detected (Not Detect) Urine Cocaine Screen POSITIVE H (Not Detect) U Marijuana (THC) Screen POSITIVE H (Not Detect) Ethyl Alcohol < 10 mg/dL COVID-19 (FABIAN) Negative (Negative) COVID-19 Clin Com See Note Discharge Plan Discharge Clinical Impression: Chronic post-traumatic stress disorder (PTSD) Schizoaffective disorder Qualifiers: Schizoaffective disorder type: bipolar Qualified Code(s): F25.0 - Schizoaffective disorder, bipolar type Prescriptions: No Action buspirone 5 mg Tablet 15 mg PO TID 30 Days Qty: 270 RF: 0 haloperidol 5 mg Tablet 10 mg PO BID 30 Days Qty: 120 RF: 0 amlodipine 10 mg Tablet 10 mg PO DAILY 30 Days Qty: 30 RF: 0 benztropine 1 mg Tablet 1 mg PO BID 30 Days Qty: 60 RF: 0 haloperidol decanoate 50 mg/mL Solution 50 mg IM Q14D Qty: 0 RF: 0 lisinopril 5 mg Tablet 5 mg PO DAILY 30 Days Qty: 30 RF: 0 omeprazole 20 mg Capsule,Delayed Release(Dr/Ec) 20 mg PO DAILY@0630 30 Days Qty: 30 RF: 0 bupropion HCl 300 mg tablet extended release 24 hr 300 mg PO BID RF: 0
[2021-01-09 06:16] VITALS: BP 146/81; PULSE 88; RESP 20; O2SAT 98
[2021-01-09 06:31] LABS: Ethanol < 10 mg/dL
[2021-01-09 06:41] LABS: Amphetamine Screen Urine Not Detected (Not Detect); Barbiturates, Urine Not Detected (Not Detect); Benzodiazepines Screen Urine Not Detected (Not Detect); Cannabinoid Screen Urine POSITIVE (Not Detect); Cocaine Screen Urine POSITIVE (Not Detect); Fentanyl, urine POSITIVE (Not Detect); Opiate Screen Urine Not Detected (Not Detect); Phencyclidine Screen Urine Not Detected (Not Detect)
[2021-01-09 06:48] LABS: COVID-19 Test Negative (Negative)
--- NOTE | 2021-01-09 07:15 | PC.NURSE ---
bhn referral done in the computer
--- NOTE | 2021-01-09 08:35 | PC.NURSE ---
PT CONTINUOS ON SLEEPING, RESPIRATIONS EVEN AND UNLABORED SITTER IN PLACE
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
[2021-01-09 16:06] VITALS: BP 165/83; PULSE 92; RESP 18; TEMP 36.8; O2SAT 97
--- NOTE | 2021-01-09 16:10 | PC.NURSE ---
pt sleeping but easily arousable, pt denies si and hi at this time, states he feels better then last night. pt continuos on awaiting bhn evaluation sitter in place
--- NOTE | 2021-01-09 16:29 | PHA.MEDREC ---
Pharmacy Consult ? Medication Reconciliation Pharmacy has completed the medication reconciliation. Patient was in facility two weeks ago, so I filled out medications based on last med rec and current fill history. Spoke with nurse martina to confirm since I am the only pharmacist here today at the moment. Haldol IM last dose confirmed. Thanks Shaggy Fisher
--- NOTE | 2021-01-09 16:30 | PC.NURSE ---
called bhn to fallow up on the pt's statues, this rn was asked if i reached out care team called care team in regards to this pt's plan, according to care team and the note that they read and pt is up for re-evaluation in the morning but if he wants to go home is able to go home. spoke to dr vanegas in regards to this conversion and dr vanegas called the care team as well
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
--- NOTE | 2021-01-09 17:15 | PC.NURSE ---
care team at bedside evaluating pt plan for the pt to be d/c home with a lift ride home
--- NOTE | 2021-01-09 18:50 | MHC.CARE ---
CARE team met with pt alongside with Agatha Elizondo NP. Pt reports he is suicidal at baseline. He reports he is in physical pain but is requesting to leave. Pt reports he wants to return [place] and navigate [facility]. Pt endorses auditory hallucinations of his brother and negativity. Pt reports he experiences suicidal ideation everyday but denies having any plan or intent. Pt shares that he feels safe to be discharged and requested to go to his friends house. Pt denies SI/HI. [employer], Agatha was able to sent his mediations to the pharmacy. Plan discussed with Dr. Swift, and pt was d/c.
== END 2021-01-09 18:30 | disposition home or self-care (01) ==
PROVIDERS: Emergency Provider Internal Medicine
DX: F25.0 Schizoaffective disorder, bipolar type (principal); F43.12 Post-traumatic stress disorder, chronic; R45.851 Suicidal ideations; F41.9 Anxiety disorder, unspecified; Z20.822 Contact with and (suspected) exposure to COVID-19; I10 Essential (primary) hypertension; F14.90 Cocaine use, unspecified, uncomplicated; F12.90 Cannabis use, unspecified, uncomplicated; F17.200 Nicotine dependence, unspecified, uncomplicated; Z87.820 Personal history of traumatic brain injury; Z79.899 Other long term (current) drug therapy
CPT/HCPCS: 36415; 80307; 82077; 87635; 99284; 99285

== ENCOUNTER 2022-02-03 00:18 | Inpatient (IN) | payer MEDICARE, MEDICAID, SELFPAY ==
--- NOTE | ~2022-02-03 | CT_ITS ---
EXAMINATION: CT HEAD WITHOUT CONTRAST CLINICAL INFORMATION: Altered mental status, agitation COMPARISON: 01/01/2021 TECHNIQUE: Contiguous axial imaging was performed from the skull base to vertex without intravenous administration of contrast. This CT examination was performed using dose optimization techniques as appropriate, variously including the following: *Automated exposure control *Adjustment of mA and/or kV according to patient size (this includes techniques or standardized protocols for targeted exams where dose is matched to indication/reason for exam; i.e. extremities or head) *Use of iterative reconstruction technique DLP: 891 mGy-cm FINDINGS: Suboptimal assessment in some regions due to motion artifact. There is no evidence of acute intracranial hemorrhage or territorial infarction. No abnormal mass-effect or midline shift is seen. Kirkpatrick to white matter differentiation is well preserved. No extra-axial fluid collections are identified. The ventricles are normal in size. There is no abnormal attenuation within the brain parenchyma. The osseous structures and soft tissues are normal. There is partial opacification of the bilateral ethmoid air cells. The mastoid air cells are well-aerated. CT/CT head/brain wo IV con IMPRESSION: Suboptimal assessment in some regions due to motion artifact. No acute intracranial pathology identified.
--- NOTE | ~2022-02-03 | XR_ITS ---
EXAMINATION: XR CHEST CLINICAL INFORMATION: Altered mental status COMPARISON: 12/01/2020 TECHNIQUE: Frontal view of the chest was obtained. FINDINGS: Lung volumes are symmetric. No focal consolidation is seen. Chronic blunting of the left costophrenic angle suggesting pleural thickening/scarring. No evidence of pneumothorax or pulmonary edema. The cardiomediastinal contour is unremarkable. No acute osseous findings are seen. XR/XR chest 1V IMPRESSION: No acute cardiopulmonary findings.
--- NOTE | 2022-02-03 00:27 | ED_ITS ---
HPI - Psych General Chief Complaint: Psychiatric Symptoms Stated Complaint: crisis Time Seen by Provider: 02/03/22 00:26 Source: patient and EMS Mode of arrival: EMS Limitations: other (Patient appears manic) History of Present Illness HPI Narrative: This is a 51-year-old male history of PTSD, TBI, schizoaffective disorder, hypertension presenting emergency department via ambulance, according to EMS patient was found on [address], he approached a random ambulance crew and stated he wanted to come to the hospital for help. He reports he feels off. And has not been taking his psychiatric medications. Reporting suicidal ideation. Without particular plan. Patient denies drugs, alcohol. However tells me uses tobacco. Denies visual, auditory and tactile hallucinations. Denies homicidal ideation. When I asked him if he has medical complaints he tells me no. Patient poor historian and with bizarre affect. Appears to be manic upon time of history taking. No reported trauma per patient and per EMS. Related Data Home Medications Medication Instructions Recorded Confirmed clonidine HCl 0.1 mg tablet 1 tab PO BID 01/09/21 02/03/22 bupropion HCl 150 mg tablet,12 hr 150 mg PO BID 02/03/22 02/03/22 sustained-release Previous Rx's Medication Instructions Recorded amlodipine 10 mg tablet 10 mg PO DAILY 30 days #30 tabs 12/04/20 benztropine 1 mg tablet 1 mg PO BID 30 days #60 tabs 12/04/20 buspirone 5 mg tablet 15 mg PO TID 30 days #270 tabs 12/04/20 haloperidol 5 mg tablet 10 mg PO BID 30 days #120 tabs 12/04/20 lisinopril 5 mg tablet 5 mg PO DAILY 30 days #30 tabs 12/04/20 omeprazole 20 mg capsule,delayed 20 mg PO DAILY@0630 30 days #30 12/04/20 release caps Allergies Allergy/AdvReac Type Severity Reaction Status Date / Time No Known Allergies Allergy Verified 12/24/20 00:12 Review of Systems Review of Systems: Constitutional : No Weight loss, No Fever, No Chills, No Fatigue, No Malaise ENT/Mouth : No sore throat, No Rhinorrhea Eyes: No Eye Pain, No Swelling, No Redness Cardiovascular : No Chest Pain, No SOB, No Dyspnea on Exertion, No Orthopnea, No Edema, No Palpitations Respiratory : No Cough, No Sputum, No Wheezing Gastrointestinal : No Nausea, No Vomiting, No Diarrhea, No Constipation, No abdominal Pain, No Hematochezia, No Melena Genitourinary : No Dysuria, No Urinary Frequency, No Hematuria, Musculoskeletal : No joint pain, No Myalgias, No Joint Swelling Skin : No Skin Lesions, No rash Neuro : No Weakness, No Numbness, No Dizziness, No Headache Psych : + Anxiety/Panic, No Depression, + SI All other systems reviewed and are negative Yes all other systems are reviewed and are negative [facility] Past Medical History Attestation statement: The following information was validated with the patient. Source: old records reviewed and nursing notes reviewed Medical History Bipolar disorder Chronic post-traumatic stress disorder (PTSD) Coma Hallucinations HTN (hypertension) Schizoaffective disorder TBI (traumatic brain injury) Social History Social History Household Members: None Housing: Apartment Do you presently have visiting nurse or other home services: No Alcohol intake: unknown Patient Tobacco Use Status: Current everyday Tobacco user Tobacco use type: Cigarette Cigarette Packs Per Day: 0 Cigarettes Per Day: 5 Years Smoked: 15 Second Hand Smoke Exposure: Yes Substance Use Type: Crack/Cocaine service: No Sexual orientation: Don't Know Physical Exam Vital Signs: Vital Signs: Last Vital Signs Temp 98.8 F 02/03/22 00:30 Pulse 105 H 02/03/22 00:30 Resp 18 02/03/22 00:30 BP 139/88 02/03/22 00:30 Pulse Ox 98 02/03/22 00:30 BMI result Body Mass Index 34.5 vss Appearance: Alert.? Oriented X3.? No acute distress.? Patient appears unkempt. Speaking rapidly. Bizarre affect. Head: Normocephalic, atraumatic, no step-offs or deformities Eyes: Pupils equal, round and reactive to light.? ENT: Pharynx normal.? Neck: Normal inspection.? Neck supple.? CVS: Normal heart rate and rhythm.? Pulses normal.? Respiratory: No respiratory distress.? Breath sounds normal.? Abdomen: Soft and nontender.? Skin: Skin warm and dry.? Normal skin color.? Normal skin turgor.? Extremities: No lower extremity edema.? No calf ttp. 5/5 strength to bilateral upper and lower extremities Neuro: Oriented X 3.? No motor deficit.? No sensory deficit. CN 2-12 intact Course Reevaluation(s) Reevaluation #1: CBC appears to be around patient's baseline. Chest x-ray no acute findings. COVID negative. Chemistry, toxicology, head CT pending. Sign out to Dr. Linda pending medical clearance and head CT. Time: 01:36 Medical Decision Making Medical Decision Making [facility] Narrative: 0030 51-year-old male presents via ambulance for manic episode, reporting SI with no particular plan. Reports non med compliance. Physical examination patient unkempt, bizarre affect, speaking rapidly. Plan at this time medical clearance and evaluation by the behavioral health team due to unclear history will obtain head CT. Lab Data Result Diagrams: 02/03/22 01:23 02/03/22 01:23 Labs: Lab Results 02/03/22 02/03/22 Range/Units 00:45 01:23 WBC 7.5 (4.8-10.8) X10*3/uL RBC 3.86 L (4.60-5.80) X10*6/uL Hgb 13.0 L (14.0-18.0) g/dl Hct 36.8 L (42.0-52.0) % MCV 95.3 (80.0-98.0) fL MCH 33.7 H (27.0-33.0) pg MCHC 35.3 (31.0-36.0) g/dl RDW 12.6 (11.0-16.0) % Plt Count 213 (160-400) X10*3/uL MPV 9.3 L (9.4-12.4) fL Immature Gran % (Auto) 0.3 (0.0-0.4) % Neut % (Auto) 75.9 H (45-73) % Lymph % (Auto) 17.1 L (20-40) % [place] % (Auto) 5.9 (2-11) % Eos % (Auto) 0.4 (0-4) % Baso % (Auto) 0.4 (0-2) % Lymph # (Auto) 1.3 (1.2-4.9) X10*3/uL [place] # (Auto) 0.4 (0.1-1.2) X10*3/uL Eos # (Auto) 0.0 (0.0-0.4) X10*3/uL Baso # (Auto) 0.0 (0.0-0.2) X10*3/uL Abs Immat Gran (auto) 0.02 (0.00-0.03) X10*3/uL Absolute Neuts (auto) 5.7 (2.0-8.3) x10*3/uL Absolute Nucleated RBC 0.000 (0.0-0.012) X10*3/uL Nucleated RBC % (auto) 0.0 (0.0-0.2) /100WBC COVID-19 (FABIAN) Negative (Negative) COVID-19 Clin Com See Note Critical Care Time Critical Care Time Critical Care Time: No Discharge Plan Discharge Clinical Impression: Manic behavior Patient Disposition: Still a Patient Prescriptions: No Action buspirone 5 mg Tablet 15 mg PO TID 30 Days Qty: 270 0RF haloperidol 5 mg Tablet 10 mg PO BID 30 Days Qty: 120 0RF amlodipine 10 mg Tablet 10 mg PO DAILY 30 Days Qty: 30 0RF Protocol: Hold for SBP< HOLD for SBP < : 90 benztropine 1 mg Tablet 1 mg PO BID 30 Days Qty: 60 0RF lisinopril 5 mg Tablet 5 mg PO DAILY 30 Days Qty: 30 0RF Protocol: Hold for SBP< HOLD for SBP < : 90 omeprazole 20 mg Capsule,Delayed Release(Dr/Ec) 20 mg PO DAILY@0630 30 Days Qty: 30 0RF clonidine HCl 0.1 mg tablet 1 tab PO BID bupropion HCl 150 mg Tablet Sustained-Release 12 Hr 150 mg PO BID
[2022-02-03 00:30] VITALS: BP 139/88; PULSE 105; RESP 18; TEMP 37.1; O2SAT 98; BMI 34.5
[2022-02-03 01:18] LABS: COVID-19 Test Negative (Negative); IDNOW Serial# BCCEAD1C
[2022-02-03 01:29] LABS: Basophils Percent Auto 0.4 % (0-2); Eosinophils Percent Auto 0.4 % (0-4); Hematocrit 36.8 % (42.0-52.0); Imm Gran Abs Auto 0.02 X10*3/uL (0.00-0.03); Imm Gran Pct Auto 0.3 % (0.0-0.4); Lymphocytes Absolute Auto 1.3 X10*3/uL (1.2-4.9); Lymphocytes Percent Auto 17.1 % (20-40); MANUAL DIFF FLAG NO; Mean Corpuscular HGB Conc 35.3 g/dl (31.0-36.0); Mean Corpuscular Hemoglobin 33.7 pg (27.0-33.0); Mean Corpuscular Volume 95.3 fL (80.0-98.0); Mean Platelet Volume 9.3 fL (9.4-12.4); Monocytes Absolute Auto 0.4 X10*3/uL (0.1-1.2); Monocytes Percent Auto 5.9 % (2-11); Neutrophils Absolute Auto 5.7 x10*3/uL (2.0-8.3); Neutrophils Percent Auto 75.9 % (45-73); Platelet Count 213 X10*3/uL (160-400); Red Blood Count 3.86 X10*6/uL (4.60-5.80); Red Cell Distribution Width 12.6 % (11.0-16.0); White Blood Count 7.5 X10*3/uL (4.8-10.8)
[2022-02-03 01:48] LABS: Alanine Aminotransferase 54 U/L (0-40); Albumin Level 4.2 g/dL (3.5-5.0); Alkaline Phosphatase 78 U/L (39-117); Anion Gap 14 (12-20); Aspartate Amino Transferase 122 U/L (5-37); Bilirubin Total 0.9 mg/dL (0.0-1.0); Blood Urea Nitrogen 27 mg/dL (9-16); Calcium 9.7 mg/dL (8.4-10.2); Carbon Dioxide 26 mmol/L (22-29); Chloride 102 mmol/L (96-108); Creatinine Clr Calc Pharmacy 99.1; Estimated Glomerular Filt Rate > 60; Ethanol < 10 mg/dL; Glucose Random 134 mg/dL (60-115); Magnesium 2.1 mg/dL (1.6-2.6); Potassium 3.9 mmol/L (3.3-5.1); Salicylate < 5.0 mg/dL (15-30); Sodium 138 mmol/L (135-145); Total Protein 7.1 g/dL (6.5-8.0)
[2022-02-03 02:00] LABS: Acetaminophen LAB < 1 mcg/mL (<30)
--- NOTE | 2022-02-03 05:17 | PC.NURSE ---
Patient slept through the night, no distress observed/reported, behavior non concerning at this time, med rec completed/pending provider's approval, N saw the patient, patient did his best to engage with [facility], disposition is section 12 inpatient bed search, provider and patient aware, patient's cloths were laundered, VSS, pending urine sample for TOX screen, will continue to monitor.
--- NOTE | 2022-02-03 07:36 | PHA.MEDREC ---
Pharmacy Consult ? Medication Reconciliation Pharmacy has completed the medication reconciliation. Reviewed med rec done by nursing
[2022-02-03] MEDS: buPROPion HCl XL 300 MG TAB.ER.24H PO (10:01)
[2022-02-03] MEDS: HaloperidoL 5 MG TABLET 10 MG PO (10:01)
[2022-02-03] MEDS: Omeprazole 20 MG CAPSULE.DR PO (10:02)
[2022-02-03] MEDS: amLODIPine Besylate 10 MG TABLET PO (10:02)
[2022-02-03] MEDS: busPIRone HCl 5 MG TABLET 15 MG PO ×3 (10:02→20:12)
[2022-02-03] MEDS: lisinopriL 5 MG TABLET PO (10:03)
[2022-02-03] MEDS: Benztropine Mesylate 1 MG TABLET PO ×2 (10:20→20:11)
--- NOTE | 2022-02-03 10:26 | ECG_ITS ---
Test Reason : medical clearance Blood Pressure : / mmHG Vent. Rate : 104 BPM Atrial Rate : 104 BPM P-R Int : 130 ms QRS Dur : 072 ms QT Int : 332 ms P-R-T Axes : 064 -17 040 degrees QTc Int : 436 ms Sinus tachycardia Otherwise normal ECG When compared with ECG of 01-DEC-2020 22:26, No significant change was found Referred By: Leonor Rodriguez Electronically Signed By:Joel Jimenez
[2022-02-03 12:21] LABS: Appearance Urine Clear; Color Urine Dark Yellow; Glucose Urine UA Negative (Negative); Leukocyte Esterase Urine Negative (Negative); Nitrite Urine Negative (Negative); PH 5.5 (5.0-9.0); Specific Gravity - Urine 1.025 (1.005-1.025); Urine Blood Negative (Negative); Urine Ketones Trace mg/dL (Negative); Urine Protein Negative (Neg-Trace)
[2022-02-03 12:42] LABS: Amphetamine Screen Urine Not Detected (Not Detect); Barbiturates, Urine Not Detected (Not Detect); Benzodiazepines Screen Urine Not Detected (Not Detect); Cannabinoid Screen Urine POSITIVE (Not Detect); Cocaine Screen Urine POSITIVE (Not Detect); Fentanyl, urine POSITIVE (Not Detect); Opiate Screen Urine Not Detected (Not Detect); Phencyclidine Screen Urine Not Detected (Not Detect)
[2022-02-03] MEDS: buPROPion HCl XL 150 MG TAB.ER.24H PO (14:38)
--- NOTE | 2022-02-03 16:53 | PC.NURSE ---
Lorraine Su is a 51 year old male in with unspecified schizophrenia and moderate stimulant use disorder. He is known to [facility]. He was sectioned in the field for AH, and brendon, presumably due to non medication compliance. He likes to be called TC . He has a past medical history significant for TBI. Thought content can be disorganized at times. Mood is appropriate for situation. Denies visual hallucinations. He states that he has SI with a plan, but denies HI. His speech can be difficult to comprehend at times due to speaking difficulties from his TBI. He does not appear to be internally preoccupied. Appetite and sleep are good. History of cocaine, opioid, and cannabis use. He has no physical complaints at this time. He signed a CV before arrival to the [facility]. He is on 15 min checks.
[2022-02-03 17:09] VITALS: BP 134/82; PULSE 88; RESP 18; TEMP 37; O2SAT 98
[2022-02-03] MEDS: cloNIDine HCL 0.2 MG TABLET PO (20:10)
[2022-02-03] MEDS: traZODone HCL 50 MG TABLET PO (20:11)
[2022-02-03 20:15] VITALS: BP 125/71; PULSE 97; TEMP 36.6; O2SAT 97
[2022-02-04 07:00] VITALS: BMI 30.2
[2022-02-04] MEDS: busPIRone HCl 5 MG TABLET 15 MG PO ×3 (07:59→20:20)
[2022-02-04] MEDS: amLODIPine Besylate 10 MG TABLET PO (07:59)
[2022-02-04 08:00] VITALS: BP 136/68; PULSE 90; RESP 17; TEMP 36.6; O2SAT 97
[2022-02-04] MEDS: lisinopriL 5 MG TABLET PO (08:00)
[2022-02-04] MEDS: Benztropine Mesylate 1 MG TABLET PO ×2 (08:00→20:20)
[2022-02-04] MEDS: buPROPion HCl XL 300 MG TAB.ER.24H PO ×2 (08:01→10:12)
--- NOTE | 2022-02-04 08:58 | PC.NURSE ---
Pt refused labs this AM, Dr. Kuhn aware
--- NOTE | 2022-02-04 09:28 | PC.NURSE ---
Pt was upset that he didn't receive Pepto with his AM medications. RN explained that there wasn't an order but we could reach out to the doctor to place one. Pt said he didn't want to wait and he demanded to take his medications without it. Pt then reportedly vomited afterwards (this was unwitnessed) and began yelling at staff because he didn't receive his Pepto. When RN stated there was now an order for Pepto, pt refused to take it because it was too late. He felt that his needs have not been met and demanded staff retrieve his boots so he could go home. Pt then left the nurses station and proceeded to charge down the torrez while slamming the doors and yelling aggressively. Code assist was called, Dr. Kuhn notified.
[2022-02-04] MEDS: busPIRone HCl 5 MG TABLET PO (10:12)
[2022-02-04] MEDS: HaloperidoL 5 MG TABLET 10 MG PO ×2 (10:12→20:20)
[2022-02-04] MEDS: Bismuth Subsalicylate 262 MG TABLET PO (12:22)
[2022-02-04] MEDS: buPROPion HCl XL 150 MG TAB.ER.24H PO ×2 (12:24→17:55)
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
[2022-02-04] MEDS: Bismuth Subsalicylate Liquid 524 MG/30 ML ORAL.SUSP 262 MG PO (18:01)
[2022-02-04 20:10] VITALS: BP 139/81; PULSE 90; RESP 16; TEMP 36.6; O2SAT 98
[2022-02-04] MEDS: cloNIDine HCL 0.2 MG TABLET PO (20:20)
[2022-02-04] MEDS: LORazepam 1 MG TABLET 2 MG PO (20:20)
[2022-02-05 06:14] VITALS: BP 123/72; PULSE 98; TEMP 36.6; O2SAT 97
[2022-02-05] MEDS: Bismuth Subsalicylate Liquid 524 MG/30 ML ORAL.SUSP 262 MG PO (06:18)
[2022-02-05] MEDS: lisinopriL 5 MG TABLET PO (06:20)
[2022-02-05] MEDS: HaloperidoL 5 MG TABLET 10 MG PO (06:20)
[2022-02-05] MEDS: amLODIPine Besylate 10 MG TABLET PO (06:20)
[2022-02-05] MEDS: Benztropine Mesylate 1 MG TABLET PO (06:20)
[2022-02-05] MEDS: buPROPion HCl XL 300 MG TAB.ER.24H PO (06:20)
[2022-02-05] MEDS: Omeprazole 20 MG CAPSULE.DR PO (06:21)
[2022-02-05] MEDS: busPIRone HCl 5 MG TABLET 15 MG PO ×2 (06:21→11:31)
[2022-02-05] MEDS: Acetaminophen 325 MG TABLET 650 MG PO (09:23)
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
[2022-02-05] MEDS: buPROPion HCl XL 150 MG TAB.ER.24H PO (11:31)
== END 2022-02-05 12:00 | disposition home or self-care (01) | DRG 885 ==
LOC: HO.ED 12:10 → HO.PADLT16 13:40
PROVIDERS: Physician Assistant; Admitting Provider Psychiatry & Neurology Psychiatry; Emergency Provider Internal Medicine; Visit Provider Psychiatry & Neurology Psychiatry
DX: F25.0 Schizoaffective disorder, bipolar type (principal); R45.851 Suicidal ideations; F43.12 Post-traumatic stress disorder, chronic; I10 Essential (primary) hypertension; Z20.822 Contact with and (suspected) exposure to COVID-19; Z87.820 Personal history of traumatic brain injury; Z79.899 Other long term (current) drug therapy
CPT/HCPCS: 70450; 71045; 80053; 80143; 80179; 80307; 81003; 82077; 83735; 85025; 87635; 93005; 99285

== ENCOUNTER 2022-02-16 06:17 | Emergency (ER) | payer MEDICARE, MEDICAID, SELFPAY ==
--- NOTE | ~2022-02-16 | CT_ITS ---
EXAMINATION: CT PELVIS WITHOUT CONTRAST CLINICAL INFORMATION: History of fall and inability to walk. COMPARISON: Radiographs of sacrum and coccyx from 02/16/2022. TECHNIQUE: Noncontrast multidetector CT imaging examination of the pelvis is performed. The axial images and multiplanar reformatted images are reviewed. This CT examination was performed using dose optimization techniques as appropriate, variously including the following: *Automated exposure control *Adjustment of mA and/or kV according to patient size (this includes techniques or standardized protocols for targeted exams where dose is matched to indication/reason for exam; i.e. extremities or head) *Use of iterative reconstruction technique DLP: 339 mGy-cm FINDINGS: The sacral and coccygeal vertebra have an intact appearance and have normal alignment. Sacroiliac joints and pubic symphysis are intact. The hip joint spaces are maintained. Alignment is normal at each hip. No fracture or subluxation. There is edema of subcutaneous tissues posterior to the sacrum and coccyx without focal fluid collection. No soft tissue hematoma. The gluteus muscles are unremarkable. No evidence of trochanteric or iliopsoas bursitis. Mild degenerative disc space narrowing, moderate to severe facet osteoarthritis, and grade 1 anterolisthesis at L4-L5. No pelvic free fluid, mass or lymphadenopathy. Urinary bladder has a normal appearance. Prostate gland is normal. No dilated loops of bowel. CT/CT bony pelvis IMPRESSION: * No evidence of pelvic bone injury. * There is edema within subcutaneous tissues posterior to the sacrum and coccyx without soft tissue hematoma.
--- NOTE | ~2022-02-16 | XR_ITS ---
EXAMINATION: XR SACRUM AND COCCYX CLINICAL INFORMATION: Coccygeal pain after fall. COMPARISON: None TECHNIQUE: 3 views of sacrum and coccyx XR/XR sacrum coccyx min 2V FINDINGS AND IMPRESSION: No acute abnormalities. The sacrum and coccyx have a normal appearance. No evidence of fracture or malalignment. The pubic symphysis and sacroiliac joints are normal. There is moderate facet arthropathy and grade 1 anterolisthesis at L4-L5.
[2022-02-16 06:24] VITALS: BP 114/86; PULSE 108; RESP 20; TEMP 37.2; O2SAT 98; BMI 31.1
[2022-02-16 06:26] VITALS: BP 132/82; PULSE 85
--- NOTE | 2022-02-16 06:30 | ED.FALL ---
HPI - Fall General Chief Complaint: Fall Stated Complaint: fall etoh Time Seen by Provider: 02/16/22 06:28 Source: patient Mode of arrival: EMS Limitations: other (oriented clinically sober but did admit to using drugs tonight) History of Present Illness HPI Narrative: 51 yo male not on blood thinners here with fall landing on buttocks no headstrike but was drinking and fell outside. He c/o pain on buttocks. He admits to drinking tonight and using cocaine. He had a boil on his buttocks before the fall. No other injuries reported. MD complaint: fall Onset (ago): minute(s) (states just prior to arrival) Fall from: standing Fall witnessed: yes, by bystander Place fall occurred: other (outside store) Loss of consciousness: none Prolonged down time: no Symptoms prior to fall: none Context: alcohol use Location of injury: buttocks Severity: moderate Quality: aching and throbbing Associated symptoms (after fall): other (hurts to sit on buttocks) Related Data Previous Rx's Medication Instructions Recorded buspirone 5 mg tablet 15 mg PO TID 30 days #270 tabs 12/04/20 amlodipine 10 mg tablet 10 mg PO DAILY 30 days #30 tabs 02/05/22 benztropine 1 mg tablet 1 mg PO BID 30 days #60 tabs 02/05/22 bismuth subsalicylate 262 mg/15 mL 262 mg (15 mL) PO TID PRN 02/05/22 oral suspension (Pepto-Bismol) Dyspepsia #0 mL bupropion HCl 150 mg 24 hr tablet, 150 mg PO BID 30 days #60 tabs 02/05/22 extended release bupropion HCl 300 mg 24 hr tablet, 300 mg PO DAILY 30 days #30 tabs 02/05/22 extended release bupropion HCl 300 mg 24 hr tablet, 300 mg PO QAM 30 days #30 tabs 02/05/22 extended release (Wellbutrin XL) clonidine HCl 0.2 mg tablet 1 tab PO BEDTIME 30 days #30 tabs 02/05/22 deutetrabenazine 6 mg tablet 1 tab PO BID 30 days #60 tabs 02/05/22 (Austedo) haloperidol 5 mg tablet 10 mg PO BID 30 days #120 tabs 02/05/22 hydroxyzine HCl 50 mg tablet 1 tab PO BID 30 days #60 tabs 02/05/22 lisinopril 5 mg tablet 5 mg PO DAILY 30 days #30 tabs 02/05/22 omeprazole 20 mg capsule,delayed 20 mg PO DAILY@0630 30 days #30 02/05/22 release caps mupirocin 2 % topical ointment 1 appl topical BID 7 days #15 grams 02/16/22 Allergies Allergy/AdvReac Type Severity Reaction Status Date / Time No Known Allergies Allergy Verified 12/24/20 00:12 Review of Systems Review of Systems: Constitutional : No Weight loss, No Fever, No Chills, ENT/Mouth : No Hearing loss, No Ear Pain, No Nasal Congestion, No Sinus Pain, No Hoarseness, No sore throat, No Rhinorrhea, No Swallowing Difficulty Cardiovascular : No Chest Pain, No SOB Respiratory : No Cough, No Dyspnea Gastrointestinal : No Nausea, No Vomiting, No Diarrhea, No abdominal Pain, No Hematochezia, No Melena Genitourinary : No Dysuria, No Urinary Frequency, No Hematuria, No Urinary Incontinence, Musculoskeletal : positive buttock pain pain Skin : No Skin Lesions, No rash Neuro : No Weakness, No Numbness, No Paresthesias, no loss of bowel or bladder incontinence, no saddle anesthesia, no headache All other systems reviewed and are negative PMFSH Past Medical History Attestation statement: The following information was validated with the patient. Medical History Bipolar disorder Chronic post-traumatic stress disorder (PTSD) Coma Hallucinations HTN (hypertension) Schizoaffective disorder TBI (traumatic brain injury) Social History Social History Household Members: None Housing: Apartment Do you presently have visiting nurse or other home services: No Alcohol intake: unknown Patient Tobacco Use Status: Tobacco use Unknown Tobacco use type: Cigarette Cigarette Packs Per Day: 0 Cigarettes Per Day: 5 Years Smoked: 15 Second Hand Smoke Exposure: Yes Substance Use Type: Crack/Cocaine Advance Directives: No service: No Sexual orientation: Don't Know Physical Exam Vital Signs: Vital Signs: Last Vital Signs Temp 98.9 F 02/16/22 06:24 Pulse 108 H 02/16/22 06:24 Resp 20 02/16/22 06:24 BP 114/86 02/16/22 06:24 Pulse Ox 98 02/16/22 06:24 O2 Del Method 02/16/22 06:24 BMI result Body Mass Index 31.1 Appearance: Alert. Oriented X3. No acute distress. appears uncomfortable Eyes: Pupils equal, round and reactive to light. ENT: Pharynx normal. Neck: Normal inspection. Neck supple. CVS: Normal heart rate and rhythm. Pulses normal. Respiratory: No respiratory distress. Breath sounds normal. Abdomen: Soft and nontender. Back: no midline ttp, sacrum ttp and left buttock there is a 4cm firm hematoma felt, boils noted on buttocks it appears one did rupture with dried blood but it is not open Skin: Skin warm and dry. Normal skin color. Normal skin turgor. Extremities: No lower extremity edema. No calf ttp Neuro: Oriented X 3. No motor deficit. No sensory deficit. Course Course Course Narrative: xray negative will order bony pelvis, walking around without issue, eating breakfast and asking to leave Medications Administered Discontinued Medications Generic Name Dose Route Start Last Admin Trade Name Alexis PRN Reason Stop Dose Admin Morphine Sulfate 15 mg 02/16/22 06:57 02/16/22 07:35 Morphine Sulfate Immed Release 15 Mg Tablet PO 02/16/22 06:58 15 mg ONCE ONE Administration Ondansetron HCl 4 mg 02/16/22 06:57 02/16/22 07:35 Ondansetron Odt 4 Mg Tab.Rapdis TRANSLINGU 02/16/22 06:58 4 mg ONCE ONE Administration Medical Decision Making Medical Decision Making [facility] Narrative: 51 yo male with PMH of schizoaffective disorder, TBI, HTN, drug abuse here with c/o fall injuring left buttocks at this time will obtain xray for fracture, basic labs, PO pain medications. He is appropriate and appears clinically sober at this time, no signs of head trauma on exam and he denies striking his head. He does have an area on buttocks that appears to be old boil that was injured. I suspect a hematoma on buttocks from the fall as well - CBC ordered. VS stable at this time. If pain is significant and xray has large fracture I am going to obtain CT scan. I have reviewed and interpreted the patient's labs and reviewed and interpreted radiologist readings of studies done in ED today. Differential Diagnosis fracture, hematoma, contusion, pilonidal cyst, abscess Lab Data MDM Lab Attestation statement: I reviewed the patient's lab results. CBC stable Result Diagrams: 02/16/22 07:30 02/16/22 07:30 Labs: Lab Results 02/16/22 02/16/22 02/16/22 Range/Units 07:30 07:30 07:30 WBC 11.9 H (4.8-10.8) X10*3/uL RBC 3.75 L (4.60-5.80) X10*6/uL Hgb 12.4 L (14.0-18.0) g/dl Hct 36.4 L (42.0-52.0) % MCV 97.1 (80.0-98.0) fL MCH 33.1 H (27.0-33.0) pg MCHC 34.1 (31.0-36.0) g/dl RDW 12.3 (11.0-16.0) % Plt Count 231 (160-400) X10*3/uL MPV 9.4 (9.4-12.4) fL Immature Gran % (Auto) 0.5 H (0.0-0.4) % Neut % (Auto) 84.0 H (45-73) % Lymph % (Auto) 8.6 L (20-40) % [place] % (Auto) 6.6 (2-11) % Eos % (Auto) 0.0 (0-4) % Baso % (Auto) 0.3 (0-2) % Lymph # (Auto) 1.0 L (1.2-4.9) X10*3/uL [place] # (Auto) 0.8 (0.1-1.2) X10*3/uL Eos # (Auto) 0.0 (0.0-0.4) X10*3/uL Baso # (Auto) 0.0 (0.0-0.2) X10*3/uL Abs Immat Gran (auto) 0.06 H (0.00-0.03) X10*3/uL Absolute Neuts (auto) 10.0 H (2.0-8.3) x10*3/uL Absolute Nucleated RBC 0.000 (0.0-0.012) X10*3/uL Nucleated RBC % (auto) 0.0 (0.0-0.2) /100WBC Sodium 136 (135-145) mmol/L Potassium 4.1 (3.3-5.1) mmol/L Chloride 100 (96-108) mmol/L Carbon Dioxide 29 (22-29) mmol/L Anion Gap 11 L (12-20) BUN 22 H (9-16) mg/dL Creatinine 1.04 (0.5-1.4) mg/dL Estim Creat Clear Calc 106.1 Estimated GFR > 60 Random Glucose 91 (60-115) mg/dL Calcium 9.6 (8.4-10.2) mg/dL Urine Opiates Screen (Not Detect) Urine Fentanyl Screen (Not Detect) Ur Barbiturates Screen (Not Detect) Ur Phencyclidine Scrn (Not Detect) Ur Amphetamines Screen (Not Detect) U Benzodiazepines Scrn (Not Detect) Urine Cocaine Screen (Not Detect) U Marijuana (THC) Screen (Not Detect) Ethyl Alcohol < 10 mg/dL COVID-19 (FABIAN) Negative (Negative) COVID-19 Clin Com See Note 02/16/22 Range/Units 08:40 WBC (4.8-10.8) X10*3/uL RBC (4.60-5.80) X10*6/uL Hgb (14.0-18.0) g/dl Hct (42.0-52.0) % MCV (80.0-98.0) fL MCH (27.0-33.0) pg MCHC (31.0-36.0) g/dl RDW (11.0-16.0) % Plt Count (160-400) X10*3/uL MPV (9.4-12.4) fL Immature Gran % (Auto) (0.0-0.4) % Neut % (Auto) (45-73) % Lymph % (Auto) (20-40) % [place] % (Auto) (2-11) % Eos % (Auto) (0-4) % Baso % (Auto) (0-2) % Lymph # (Auto) (1.2-4.9) X10*3/uL [place] # (Auto) (0.1-1.2) X10*3/uL Eos # (Auto) (0.0-0.4) X10*3/uL Baso # (Auto) (0.0-0.2) X10*3/uL Abs Immat Gran (auto) (0.00-0.03) X10*3/uL Absolute Neuts (auto) (2.0-8.3) x10*3/uL Absolute Nucleated RBC (0.0-0.012) X10*3/uL Nucleated RBC % (auto) (0.0-0.2) /100WBC Sodium (135-145) mmol/L Potassium (3.3-5.1) mmol/L Chloride (96-108) mmol/L Carbon Dioxide (22-29) mmol/L Anion Gap (12-20) BUN (9-16) mg/dL Creatinine (0.5-1.4) mg/dL Estim Creat Clear Calc Estimated GFR Random Glucose (60-115) mg/dL Calcium (8.4-10.2) mg/dL Urine Opiates Screen POSITIVE H (Not Detect) Urine Fentanyl Screen POSITIVE H (Not Detect) Ur Barbiturates Screen Not Detected (Not Detect) Ur Phencyclidine Scrn Not Detected (Not Detect) Ur Amphetamines Screen Not Detected (Not Detect) U Benzodiazepines Scrn Not Detected (Not Detect) Urine Cocaine Screen POSITIVE H (Not Detect) U Marijuana (THC) Screen POSITIVE H (Not Detect) Ethyl Alcohol mg/dL COVID-19 (FABIAN) (Negative) COVID-19 Clin Com Independent Interpretation I performed an independent interpretation of an: Plain X-Ray and CT Scan Interpretation: no obvious fracture noted Radiology Impression Discussion of test interpretation with radiology: I have reviewed the radiologist's reading. External Record Review External record reviewed: Inpatient record and Prior outpatient labs Prescription Management I considered prescription management with: Other (topical mupirocin for boil) Social Determinants Patient?s care significantly limited by Social Determinants of Health including: Inadequate housing and Unemployment Discharge Plan Discharge Clinical Impression: Active substance abuse Contusion of buttock Qualifiers: Encounter type: initial encounter Qualified Code(s): S30.0XXA - Contusion of lower back and pelvis, initial encounter Patient Disposition: Home, Self-Care Instructions: Polysubstance Abuse (ED), Hematoma (ED) Additional Instructions: return to ED for any worsening symptoms or concerns return for fevers, increased pain and swelling, redness, yellow drainage, numbness weakness inability to walk Prescriptions: New mupirocin 2 % ointment 1 appl topical BID 7 Days Qty: 15 0RF No Action buspirone 5 mg Tablet 15 mg PO TID 30 Days Qty: 270 0RF bupropion HCl 150 mg Tablet Extended Release 24 Hr 150 mg PO BID 30 Days Qty: 60 0RF Rx Instructions: take at noon and at 7 pm bismuth subsalicylate [Pepto-Bismol] 262 mg/15 mL Suspension 262 mg PO TID PRN (Reason: Dyspepsia) Qty: 0 0RF bupropion HCl 300 mg Tablet Extended Release 24 Hr 300 mg PO DAILY 30 Days Qty: 30 0RF haloperidol 5 mg Tablet 10 mg PO BID 30 Days Qty: 120 0RF hydroxyzine HCl 50 mg tablet 1 tab PO BID 30 Days Qty: 60 0RF clonidine HCl 0.2 mg tablet 1 tab PO BEDTIME 30 Days Qty: 30 0RF amlodipine 10 mg Tablet 10 mg PO DAILY 30 Days Qty: 30 0RF Protocol: Hold for SBP< HOLD for SBP < : 90 benztropine 1 mg Tablet 1 mg PO BID 30 Days Qty: 60 0RF omeprazole 20 mg Capsule,Delayed Release(Dr/Ec) 20 mg PO DAILY@0630 30 Days Qty: 30 0RF lisinopril 5 mg Tablet 5 mg PO DAILY 30 Days Qty: 30 0RF Protocol: Hold for SBP< HOLD for SBP < : 90 [place] 6 mg tablet 1 tab PO BID 30 Days Qty: 60 0RF bupropion HCl [Wellbutrin XL] 300 mg tablet extended release 24 hr 300 mg PO QAM 30 Days Qty: 30 0RF Interventions: ED Discharge Assessment Last Done: 02/16/22 09:32 Discharge Date/Time: 02/16/22 09:32
[2022-02-16] MEDS: Morphine Sulfate Immed Release 15 MG TABLET PO (07:35)
[2022-02-16] MEDS: Ondansetron ODT 4 MG TAB.RAPDIS TRANSLINGU (07:35)
[2022-02-16 07:36] LABS: MANUAL DIFF FLAG NO
--- NOTE | 2022-02-16 07:38 | PC.NURSE ---
Patient AOx 5 presents to ED with report of fall post alcohol and fentanyl and cocaine, patient AVALOS with purose no distress noted. Patient tolerated po pain med and anti emetic will CTM
[2022-02-16 07:43] LABS: Basophils Percent Auto 0.3 % (0-2); Hematocrit 36.4 % (42.0-52.0); Hemoglobin 12.4 g/dl (14.0-18.0); Imm Gran Abs Auto 0.06 X10*3/uL (0.00-0.03); Imm Gran Pct Auto 0.5 % (0.0-0.4); Lymphocytes Percent Auto 8.6 % (20-40); Mean Corpuscular HGB Conc 34.1 g/dl (31.0-36.0); Mean Corpuscular Hemoglobin 33.1 pg (27.0-33.0); Mean Corpuscular Volume 97.1 fL (80.0-98.0); Mean Platelet Volume 9.4 fL (9.4-12.4); Monocytes Absolute Auto 0.8 X10*3/uL (0.1-1.2); Monocytes Percent Auto 6.6 % (2-11); Platelet Count 231 X10*3/uL (160-400); Red Blood Count 3.75 X10*6/uL (4.60-5.80); Red Cell Distribution Width 12.3 % (11.0-16.0); White Blood Count 11.9 X10*3/uL (4.8-10.8)
[2022-02-16 07:50] LABS: COVID-19 Test Negative (Negative); IDNOW Serial# 16C4AD1C
[2022-02-16 07:59] LABS: Anion Gap 11 (12-20); Blood Urea Nitrogen 22 mg/dL (9-16); Calcium 9.6 mg/dL (8.4-10.2); Carbon Dioxide 29 mmol/L (22-29); Chloride 100 mmol/L (96-108); Creatinine Clr Calc Pharmacy 106.1; Estimated Glomerular Filt Rate > 60; Ethanol < 10 mg/dL; Glucose Random 91 mg/dL (60-115); Potassium 4.1 mmol/L (3.3-5.1); Sodium 136 mmol/L (135-145)
[2022-02-16 09:11] LABS: Amphetamine Screen Urine Not Detected (Not Detect); Barbiturates, Urine Not Detected (Not Detect); Benzodiazepines Screen Urine Not Detected (Not Detect); Cannabinoid Screen Urine POSITIVE (Not Detect); Cocaine Screen Urine POSITIVE (Not Detect); Fentanyl, urine POSITIVE (Not Detect); Opiate Screen Urine POSITIVE (Not Detect); Phencyclidine Screen Urine Not Detected (Not Detect)
== END 2022-02-16 09:32 | disposition home or self-care (01) ==
PROVIDERS: Emergency Provider Emergency Medicine
DX: F19.10 Other psychoactive substance abuse, uncomplicated (principal); S30.0XXA Contusion of lower back and pelvis, initial encounter; W01.0XXA Fall on same level from slipping, tripping and stumbling without subsequent striking against object, initial encounter; I10 Essential (primary) hypertension; F43.12 Post-traumatic stress disorder, chronic; F25.0 Schizoaffective disorder, bipolar type; F17.210 Nicotine dependence, cigarettes, uncomplicated; Z87.820 Personal history of traumatic brain injury; Z20.822 Contact with and (suspected) exposure to COVID-19; Y93.9 Activity, unspecified; Y92.9 Unspecified place or not applicable; Y99.9 Unspecified external cause status; Z79.899 Other long term (current) drug therapy
CPT/HCPCS: 36415; 72192; 72220; 80048; 80307; 82077; 85025; 87635; 99283; 99284